=== PATIENT | female | born 1975 | race Caucasian/White ===

== ENCOUNTER 2023-06-13 11:23 | Outpatient (OUT) | payer BC, SELFPAY ==
[2023-06-13 12:31] LABS: Basophils Absolute Auto 0.1 10^3/uL (0.0-0.1); Basophils Percent Auto 0.7 % (0.2-2.0); Eosinophils Absolute Auto 0.3 10^3/uL (0.0-0.7); Eosinophils Percent Auto 3.2 % (0.9-7.0); Hematocrit 41.6 % (36.0-48.0); Hemoglobin 13.5 g/dL (12.0-16.0); Immature Granulocytes Abs Auto 0.04 10^3/uL (0.00-0.03); Immature Granulocytes Pct Auto 0.4 % (0.0-0.5); Lymphocytes Absolute Auto 2.4 10^3/uL (1.2-3.8); Mean Corpuscular HGB Conc 32.5 g/dL (29.9-35.2); Mean Corpuscular Hemoglobin 29.1 pg (26.7-34.0); Mean Corpuscular Volume 89.7 fL (81.0-99.0); Mean Platelet Volume 10.1 fL (9.5-13.5); Monocytes Absolute Auto 0.4 10^3/uL (0.3-0.8); Monocytes Percent Auto 3.9 % (1.7-12.0); Neutrophils Absolute Auto 6.8 10^3/uL (1.4-6.5); Neutrophils Percent Auto 67.8 % (43.0-75.0); Platelet Count 375 10^3/uL (150-450); Red Blood Count 4.64 10^6/uL (4.20-5.40); Red Cell Distribution Width 13.7 % (11.0-15.0)
[2023-06-13 12:45] LABS: Estimated Average Glucose 100 mg/dL; Glycohemoglobin A1C 5.1 % (4.5-6.2)
[2023-06-13 13:00] LABS: Alanine Aminotransferase 22 U/L (14-59); Albumin Globulin Ratio 0.9; Albumin Level 3.7 g/dL (3.4-5.0); Alkaline Phosphatase 85 U/L (46-116); Anion Gap 10.7; Aspartate Amino Transferase 14 U/L (15-37); BUN Creatinine Ratio 14.5; Bilirubin Total 0.3 mg/dL (0.2-1.0); Calcium 8.8 mg/dL (8.5-10.1); Carbon Dioxide 29.1 mmol/L (21.0-32.0); Chloride 104 mmol/L (98-107); Chol HDL Ratio 4.3; Cholesterol 227 mg/dL (<=200); Estimated GFR (African America >60 (>=60); Estimated GFR (Non-African Ame >60 (>=60); Free T3 1.74 pg/mL (2.18-3.98); Globulin 3.9 g/dL; Glucose 84 mg/dL (74-106); HDL Cholesterol 53 mg/dL (40-60); Potassium 3.8 mmol/L (3.5-5.1); Sodium 140 mmol/L (136-145); Thyroid Stimulating Hormone 2.198 uIU/mL (0.358-3.740); Total Protein 7.6 g/dL (6.4-8.2); Triglycerides 157 mg/dL (<=150); VLDL CHOLESTEROL 31.4 mg/dL
== END 2023-06-13 11:24 | disposition home or self-care (01) ==
PROVIDERS: PCP Family Medicine; Visit Provider Family Medicine
DX: Z00.00 Encounter for general adult medical examination without abnormal findings (principal); E78.5 Hyperlipidemia, unspecified; R73.09 Other abnormal glucose; Z12.12 Encounter for screening for malignant neoplasm of rectum; D64.9 Anemia, unspecified
CPT/HCPCS: 36415; 80053; 80061; 83036; 83525; 83540; 84436; 84443; 84481; 85025

== ENCOUNTER 2023-07-28 10:23 | Outpatient (OUT) | payer BC, SELFPAY ==
--- OUTSIDE RECORDS SUMMARY | 2023-07-28 10:27 | XMS_ITS | CCD ---
Author Organization [facility] Care Team Providers Care Building Construction Supervisor Name Role Phone VINCENT ., DR PACHECO Consulting Unavailable HOY ., DR ZAMARRIPA Primary Care Unavailable VINCENT ., DR PACHECO Admitting Unavailable VINCENT ., DR PACHECO Attending Unavailable LEONIE SMITH Consulting Unavailable DESIREE II, ELENO Consulting Unavailable VINCENT ., DR PACHECO Attending Unavailable HOY ., DR ZAMARRIPA Primary Care Unavailable VINCENT ., DR PACHECO Admitting Unavailable [place], DR ALEX Patel Consulting Unavailable HOY ., DR ZAMARRIPA Primary Care Unavailable VINCENT ., DR PACHECO Admitting Unavailable VINCENT ., DR PACHECO Attending Unavailable VINCENT ., DR PACHECO Consulting Unavailable VINCENT ., DR PACHECO Consulting Unavailable HOY ., DR ZAMARRIPA Primary Care Unavailable VINCENT ., DR PACHECO Admitting Unavailable VINCENT ., DR PACHECO Attending Unavailable HOY ., DR ZAMARRIPA Attending Unavailable HOY ., DR ZAMARRIPA Consulting Unavailable HOY ., DR ZAMARRIPA Primary Care Unavailable HOY ., DR ZAMARRIPA Admitting Unavailable VINCENT ., DR PACHECO Attending Unavailable HOY ., DR ZAMARRIPA Primary Care Unavailable VINCENT ., DR PACHECO Consulting Unavailable VINCENT ., DR PACHECO Admitting Unavailable GRACE TIDWELL Consulting Unavailable ERIBERTO VERNON Consulting Unavailable VINCENT ., DR PACHECO Consulting Unavailable HOY ., DR ZAMARRIPA Primary Care Unavailable VINCENT ., DR PACHECO Admitting Unavailable VINCENT ., DR PACHECO Attending Unavailable VINCENT ., DR PACHECO Consulting Unavailable HOY ., DR ZAMARRIPA Primary Care Unavailable VINCENT ., DR PACHECO Admitting Unavailable VINCENT ., DR PACHECO Attending Unavailable RULA MEADE Consulting Unavailable Allergies Allergy Classification Reported Allergen(s) Allergy Type Date of Onset Reaction(s) Facility (1 source) Adhesive agent Drug allergy (disorder) [facility] Repository Problems Active Problems Problem Classification Problem Date Documented Date Episodic/Chronic Abdominal pain (5 sources) Pelvic and perineal pain; Translations: [PELVIC AND PERINEAL PAIN] Onset: 2 Episodic Disorders of lipid metabolism (1 source) Pure hypercholesterolemia, unspecified; Translations: [PURE HYPERCHOLESTEROLEMIA UNSPEC] Onset: 2 Chronic Menstrual disorders (6 sources) Excessive and frequent menstruation with regular cycle; Translations: [Dysmenorrhea, unspecified] Onset: 3 Chronic Nutritional deficiencies (1 source) Vitamin D deficiency, unspecified; Translations: [VITAMIN D DEFICIENCY UNSPECIFIED] Onset: 2 Chronic Other aftercare (1 source) Other fci (current) drug therapy; Translations: [OTH COMMUNITY EDUCATION SPECIALIST CURRENT DRUG THERAPY] Onset: 3 Episodic Other female genital disorders (1 source) Unspecified dyspareunia; Translations: [UNSPECIFIED DYSPAREUNIA] Onset: 3 Chronic Other female genital disorders (1 source) Hypertrophy of uterus; Translations: [HYPERTROPHY OF UTERUS] Onset: 3 Episodic Other nutritional; endocrine; and metabolic disorders (1 source) Obesity, unspecified; Translations: [OBESITY UNSPECIFIED] Onset: 3 Chronic Other nutritional; endocrine; and metabolic disorders (1 source) Body mass index (BMI) 35.0-35.9, adult; Translations: [BODY MASS INDEX BMI 35.0-35.9 ADULT] Onset: 3 Chronic Substance-related disorders (1 source) Nicotine dependence, other tobacco product, uncomplicated; Translations: [NICOTINE DEPEND OTH TOB PROD UNCOMP] Onset: 3 Chronic Past or Other Problems Problem Classification Problem Date Documented Date Episodic/Chronic Contraceptive and procreative management (1 source) Tubal ligation status; Translations: [TUBAL LIGATION STATUS] Onset: 06-29-2022 Episodic Immunizations and screening for infectious disease (1 source) Encounter for screening for human papillomavirus (HPV); Translations: [ENC SCREENING HUMAN PAPILLOMAVIRUS] Onset: 04-06-2022 Episodic Inflammatory diseases of female pelvic organs (1 source) Female pelvic peritoneal adhesions (postinfective); Translations: [FE PELV PERITON ADHES POSTINFECTIVE] Onset: 06-29-2022 Episodic Malaise and fatigue (1 source) Other fatigue; Translations: [OTHER FATIGUE] Onset: 02-24-2022 Episodic Other screening for suspected conditions (not mental disorders or infectious disease) (5 sources) Encounter for screening mammogram for malignant neoplasm of breast; Translations: [Encounter for screening for malignant neoplasm of cervix] Onset: 04-03-2022 Episodic Residual codes; unclassified (1 source) Family history of malignant neoplasm of breast; Translations: [FAMILY HX MALIG NEOPLASM OF BREAST] Onset: 05-06-2022 Episodic Residual codes; unclassified (1 source) Family history of malignant neoplasm of trachea, bronchus and lung; Translations: [FAM HX MALIG NEOPLSM TRACH BRON LNG] Onset: 05-06-2022 Episodic Results Test Name Value Interpretation Reference Range Facility BUNon 08-05-2022 Urea nitrogen [Mass/Vol] 7.0 mg/dL Normal 7.0-18.0 [facility] Comment on above: Performed By: #### P TT, PT #### [facility] [address] [place] [address] Dr. Abdoulaye Kincaid CBC AUTO DIFFon 08-05-2022 BASO # 0.0 103/ul Normal 0.0-0.1 [facility] Comment on above: Performed By: #### C BC #### [facility] [address] [place] [address] Dr. Abdoulaye Kincaid Basophils/100 WBC (Bld) 0.1 % Critically low 0.2-2.0 [facility] Comment on above: Performed By: #### C BC #### [facility] [address] [place] [address] Dr. Abdoulaye Kincaid EO # 0.0 103/ul Normal 0.0-0.7 [facility] Comment on above: Performed By: #### C BC #### [facility] [address] [place] [address] Dr. Abdoulaye Kincaid Eosinophils/100 WBC (Bld) 0.0 % Critically low 0.9-7.0 [facility] Comment on above: Performed By: #### C BC #### [facility] [address] [place] [address] Dr. Abdoulaye Kincaid Erythrocyte distribution width (RBC) [Ratio] 13.8 % Normal 11.0-15.0 [facility] Comment on above: Performed By: #### C BC #### [facility] [address] [place] [address] Dr. Abdoulaye Kincaid Hematocrit (Bld) [Volume fraction] 35.4 % Critically low 36.0-48.0 [facility] Comment on above: Performed By: #### C BC #### [facility] [address] [place] [address] Dr. Abdoulaye Kincaid Hemoglobin (Bld) [Mass/Vol] 11.8 g/dL Critically low 12.0-16.0 [facility] Comment on above: Performed By: #### C BC #### [facility] [address] [place] [address] Dr. Abdoulaye Kincaid IG # 0.05 10e3/ul Critically high 0.00-0.03 [facility] Comment on above: Performed By: #### C BC #### [facility] [address] [place] [address] Dr. Abdoulaye Kincaid IG % 0.4 % Normal 0.0-0.5 [facility] Comment on above: Performed By: #### C BC #### [facility] [address] [place] [address] Dr. Abdoulaye Kincaid LYMPH # 2.1 103/ul Normal 1.2-3.8 [facility] Comment on above: Performed By: #### C BC #### [facility] [address] [place] [address] Dr. Abdoulaye Kincaid Lymphocytes/100 WBC (Bld) 15.1 % Critically low 20.5-60.0 [facility] Comment on above: Performed By: #### C BC #### [facility] [address] [place] [address] Dr. Abdoulaye Kincaid MANUAL DIFF REQ NO Normal [facility] Comment on above: Performed By: #### C BC #### [facility] [address] [place] [address] Dr. Abdoulaye Kincaid MCH (RBC) [Entitic mass] 29.1 pg Normal 26.7-34.0 [facility] Comment on above: Performed By: #### C BC #### [facility] [address] [address] [address] Abdoulaye Kincaid MCHC (RBC) [Mass/Vol] 33.3 g/dL Normal 29.9-35.2 [facility] Comment on above: Performed By: #### C BC #### [facility] [address] [address] [address] Abdoulaye Kincaid MCV (RBC) [Entitic vol] 87.2 fL Normal 81.0-99.0 [facility] Comment on above: Performed By: #### C BC #### [facility] [address] [address] [address] Abdoulaye Kincaid MONO # 0.8 103/ul Normal 0.3-0.8 [facility] Comment on above: Performed By: #### C BC #### [facility] [address] [place] [address] Dr. Abdoulaye Kincaid Monocytes/100 WBC (Bld) 6.2 % Normal 1.7-12.0 [facility] Comment on above: Performed By: #### C BC #### [facility] [address] [address] [address] Abdoulaye Kincaid NEUT # 10.7 103/ul Critically high 1.4-6.5 [facility] Comment on above: Performed By: #### C BC #### [facility] [address] [address] [address] Abdoulaye Kincaid Neutrophils/100 WBC (Bld) 78.2 % Critically high 43.0-75.0 [facility] Comment on above: Performed By: #### C BC #### [facility] [address] [address] [address] Abdoulaye Kincaid Platelet mean volume (Bld) [Entitic vol] 9.4 fL Critically low 9.5-13.5 [facility] Comment on above: Performed By: #### C BC #### [facility] [address] [address] [address] Abdoulaye Kincaid PLT 361 103/ul Normal 150-450 [facility] Comment on above: Performed By: #### C BC #### [facility] [address] [place] [address] Dr. Abdoulaye Kincaid RBC 4.06 106/ul Critically low 4.20-5.40 [facility] Comment on above: Performed By: #### C BC #### [facility] [address] [address] [address] Abdoulaye Kincaid WBC 13.6 103/ul Critically high 4.0-11.0 [facility] Comment on above: Performed By: #### C BC #### [facility] [address] [address] [address] Abdoulaye Kincaid CREATININEon 08-05-2022 Creatinine [Mass/Vol] 0.73 mg/dL Normal 0.55-1.02 [facility] Comment on above: Performed By: #### P TT, PT #### [facility] [address] [place] [address] Dr. Abdoulaye Kincaid EGFR-AF BARBADIAN >60 Normal >=60 [facility] Comment on above: Performed By: #### P TT, PT #### [facility] [address] [place] [address] Dr. Abdoulaye Kincaid EGFR-NON AF BARBADIAN >60 Normal >=60 [facility] Comment on above: Performed By: #### P TT, PT #### [facility] [address] [place] [address] Dr. Abdoulaye Kincaid PREG QUANT HCGon 08-04-2022 HCG QUANT 0 mIU/mL Normal [facility] Comment on above: Performed By: #### P TT, PT #### [facility] [address] [place] [address] Dr. Abdoulaye Kincaid HCG RANGE SEE BELOW Normal [facility] Comment on above: Result Comment: 5-50 0.2-1 WEEK 50-500 1-2 WEEKS 100-5,000 2-3 WEEKS 500-10,000 3-4 WEEKS 1,000-50,000 4-5 WEEKS 10,000-100,000 5-6 WEEKS 15,000-200,000 6-8 WEEKS 10,000-100,000 2-3 MONTHS Performed By: #### P TT, PT #### [facility] [address] [address] [address] Abdoulaye Kincaid CBC AUTO DIFFon 08-01-2022 BASO # 0.1 103/ul Normal 0.0-0.1 [facility] Comment on above: Performed By: #### C BC #### [facility] [address] [place] [address] Dr. Abdoulaye Kincaid Basophils/100 WBC (Bld) 0.6 % Normal 0.2-2.0 [facility] Comment on above: Performed By: #### C BC #### [facility] [address] [place] [address] Dr. Abdoulaye Kincaid EO # 0.3 103/ul Normal 0.0-0.7 [facility] Comment on above: Performed By: #### C BC #### [facility] [address] [place] [address] Dr. Abdoulaye Kincaid Eosinophils/100 WBC (Bld) 2.5 % Normal 0.9-7.0 [facility] Comment on above: Performed By: #### C BC #### [facility] [address] [place] [address] Dr. Abdoulaye Kincaid Erythrocyte distribution width (RBC) [Ratio] 13.9 % Normal 11.0-15.0 [facility] Comment on above: Performed By: #### C BC #### [facility] [address] [place] [address] Dr. Abdoulaye Kincaid Hematocrit (Bld) [Volume fraction] 39.5 % Normal 36.0-48.0 [facility] Comment on above: Performed By: #### C BC #### [facility] [address] [place] [address] Dr. Abdoulaye Kincaid Hemoglobin (Bld) [Mass/Vol] 13.4 g/dL Normal 12.0-16.0 [facility] Comment on above: Performed By: #### C BC #### [facility] [address] [place] [address] Dr. Abdoulaye Kincaid IG # 0.04 10e3/ul Critically high 0.00-0.03 [facility] Comment on above: Performed By: #### C BC #### [facility] [address] [place] [address] Dr. Abdoulaye Kincaid IG % 0.4 % Normal 0.0-0.5 [facility] Comment on above: Performed By: #### C BC #### [facility] [address] [place] [address] Dr. Abdoulaye Kincaid LYMPH # 2.3 103/ul Normal 1.2-3.8 [facility] Comment on above: Performed By: #### C BC #### [facility] [address] [place] [address] Dr. Abdoulaye Kincaid Lymphocytes/100 WBC (Bld) 22.8 % Normal 20.5-60.0 [facility] Comment on above: Performed By: #### C BC #### [facility] [address] [place] [address] Dr. Abdoulaye Kincaid MANUAL DIFF REQ NO Normal [facility] Comment on above: Performed By: #### C BC #### [facility] [address] [place] [address] Dr. Abdoulaye Kincaid MCH (RBC) [Entitic mass] 29.3 pg Normal 26.7-34.0 [facility] Comment on above: Performed By: #### C BC #### [facility] [address] [place] [address] Dr. Abdoulaye Kincaid MCHC (RBC) [Mass/Vol] 33.9 g/dL Normal 29.9-35.2 [facility] Comment on above: Performed By: #### C BC #### [facility] [address] [place] [address] Dr. Abdoulaye Kincaid MCV (RBC) [Entitic vol] 86.4 fL Normal 81.0-99.0 [facility] Comment on above: Performed By: #### C BC #### [facility] [address] [place] [address] Dr. Abdoulaye Kincaid MONO # 0.4 103/ul Normal 0.3-0.8 [facility] Comment on above: Performed By: #### C BC #### [facility] [address] [place] [address] Dr. Abdoulaye Kincaid Monocytes/100 WBC (Bld) 4.4 % Normal 1.7-12.0 [facility] Comment on above: Performed By: #### C BC #### [facility] [address] [address] [address] Abdoulaye Kincaid NEUT # 7.0 103/ul Critically high 1.4-6.5 [facility] Comment on above: Performed By: #### C BC #### [facility] [address] [place] [address] Dr. Abdoulaye Kincaid Neutrophils/100 WBC (Bld) 69.3 % Normal 43.0-75.0 [facility] Comment on above: Performed By: #### C BC #### [facility] [address] [place] [address] Dr. Abdoulaye Kincaid Platelet mean volume (Bld) [Entitic vol] 9.1 fL Critically low 9.5-13.5 [facility] Comment on above: Performed By: #### C BC #### [facility] [address] [place] [address] Dr. Abdoulaye Kincaid PLT 352 103/ul Normal 150-450 [facility] Comment on above: Performed By: #### C BC #### [facility] [address] [place] [address] Dr. Abdoulaye Knicaid RBC 4.57 106/ul Normal 4.20-5.40 [facility] Comment on above: Performed By: #### C BC #### [facility] [address] [place] [address] Dr. Abdoulaye Kincaid WBC 10.1 103/ul Normal 4.0-11.0 [facility] Comment on above: Performed By: #### C BC #### [facility] [address] [place] [address] Dr. Abdoulaye Kincaid LIVER PROFILEon 08-01-2022 Albumin [Mass/Vol] 4.0 g/dL Normal 3.4-5.[address] [facility] Comment on above: Performed By: #### L GEM, BMP #### [facility] [address] [address] [address] Abdoulaye Kincaid Albumin/Globulin [Mass ratio] 1.2 {ratio} Normal [facility] Comment on above: Performed By: #### L IVER, BMP #### [facility] [address] [address] [address] Abdoulaye Kincaid ALP [Catalytic activity/Vol] 89 U/L Normal 46-116 [facility] Comment on above: Performed By: #### L IVER, BMP #### [facility] [address] [address] [address] Abdoulaye Kincaid ALT [Catalytic activity/Vol] 29 U/L Normal 14-59 [facility] Comment on above: Performed By: #### L IVBREN, BMP #### [facility] [address] [address] [address] Abdoulaye Kinacid AST [Catalytic activity/Vol] 20 U/L Normal 15-37 [facility] Comment on above: Performed By: #### L GEM, BMP #### [facility] [address] [place] [address] Dr. Abdoulaye Kincaid BILI, CONJUGATED 0.1 mg/dL Normal 0.0-0.2 [facility] Comment on above: Performed By: #### L IVBREN, BMP #### [facility] [address] [address] [address] Abdoulaye Kincaid Bilirubin [Mass/Vol] 0.5 mg/dL Normal 0.2-1.0 [facility] Comment on above: Performed By: #### L IVBREN, BMP #### [facility] [address] [address] [address] Abdoulaye Kincaid Globulin (S) [Mass/Vol] 3.4 g/dL Normal [facility] Comment on above: Performed By: #### L IVER, BMP #### [facility] [address] [address] [address] Abdoulaye Kincaid Protein [Mass/Vol] 7.4 g/dL Normal 6.4-8.2 [facility] Comment on above: Performed By: #### L IVER, BMP #### [facility] [address] [place] [address] Dr. Abdoulaye Kincaid PROF CHEM 8 (BAS METB)on Anion gap [Moles/Vol] 14.8 mmol/L Normal [facility] Comment on above: Performed By: #### L IVER, BMP #### [facility] [address] [place] [address] Dr. Abdoulaye Kincaid Calcium [Mass/Vol] 9.1 mg/dL Normal 8.5-10.[address] [facility] Comment on above: Performed By: #### L IVER, BMP #### [facility] [address] [place] [address] Dr. Abdoulaye Kincaid Chloride [Moles/Vol] 107 mmol/L Normal 98-107 [facility] Comment on above: Performed By: #### L IVER, BMP #### [facility] [address] [place] [address] Dr. Abdoulaye Kincaid CO2 [Moles/Vol] 27.3 mmol/L Normal 21.0-32.0 [facility] Comment on above: Performed By: #### L IVER, BMP #### [facility] [address] [place] [address] Dr. Abdoulaye Kincaid Creatinine [Mass/Vol] 0.90 mg/dL Normal 0.55-1.02 [facility] Comment on above: Performed By: #### L IVER, BMP #### [facility] [address] [place] [address] Dr. Abdoulaye Kincaid EGFR-AF BARBADIAN >60 Normal >=60 [facility] Comment on above: Performed By: #### L IVER, BMP #### [facility] [address] [place] [address] Dr. Abdoulaye Kincaid EGFR-NON AF BARBADIAN >60 Normal >=60 [facility] Comment on above: Performed By: #### L IVER, BMP #### [facility] [address] [place] [address] Dr. Abdoulaye Kincaid Glucose [Mass/Vol] 109 mg/dL Critically high 74-106 [facility] Comment on above: Performed By: #### L IVER, BMP #### [facility] [address] [place] [address] Dr. Abdoulaye Kincaid Potassium [Moles/Vol] 4.1 mmol/L Normal 3.5-5.1 [facility] Comment on above: Performed By: #### L IVER, BMP #### [facility] [address] [place] [address] Dr. Abdoulaye Kincaid Sodium [Moles/Vol] 145 mmol/L Normal 136-[address] [facility] Comment on above: Performed By: #### L IVER, BMP #### [facility] [address] [place] [address] Dr. Abdoulaye Kincaid Urea nitrogen [Mass/Vol] 14.0 mg/dL Normal 7.0-18.0 [facility] Comment on above: Performed By: #### L IVER, BMP #### [facility] [address] [place] [address] Dr. Abdoulaye Kincaid Urea nitrogen/Creatinine [Mass ratio] 15.6 mg/mg Normal [facility] Comment on above: Performed By: #### L IVER, BMP #### [facility] [address] [place] [address] Dr. Abdoulaye Kincaid PROTIMEon 08-01-2022 INR Coag (PPP) [Relative time] 0.95 {INR} Normal [facility] Comment on above: Performed By: #### P TT, PT #### [facility] [address] [place] [address] Dr. Abdoulaye Kincaid INR GUIDELINES SEE BELOW Normal [facility] Comment on above: Result Comment: NIMA RED INR: 2.0 - 3.0 CONDITIONS NOT LISTED BELOW 2.5 - 3.5 FOR PROSTHETIC HEART VALVE REPLACEMENT 2.5 - 3.5 RECURRENT THROMBOSIS Performed By: #### P TT, PT #### [facility] [address] [place] [address] Dr. Abdoulaye Kincaid PT Coag (PPP) [Time] 10.1 s Normal 9.0-11.6 [facility] Comment on above: Performed By: #### P TT, PT #### [facility] [address] [place] [address] Dr. Abdoulaye Kincaid PTTon 08-01-2022 aPTT Coag (Bld) [Time] 27.4 s Normal 22.3-36.2 [facility] Comment on above: Performed By: #### P TT, PT #### [facility] [address] [place] [address] Dr. Abdoulaye Kincaid TYPE AND SCREENon 08-01-2022 TYPE AND SCREEN Negative Normal [facility] Comment on above: Performed By: #### P TT, PT #### [facility] [address] [place] [address] Dr. Abdoulaye Kincaid CBC AUTO DIFFon 06-23-2022 BASO # 0.1 103/ul Normal 0.0-0.1 [facility] Comment on above: Performed By: #### A 1C #### [facility] [address] [place] [address] Dr. Abdoulaye Kincaid Basophils/100 WBC (Bld) 0.4 % Normal 0.2-2.0 [facility] Comment on above: Performed By: #### A 1C #### [facility] [address] [place] [address] Dr. Abdoulaye Kincaid EO # 0.2 103/ul Normal 0.0-0.7 [facility] Comment on above: Performed By: #### A 1C #### [facility] [address] [place] [address] Dr. Abdoulaye Kincaid Eosinophils/100 WBC (Bld) 1.7 % Normal 0.9-7.0 [facility] Comment on above: Performed By: #### A 1C #### [facility] [address] [place] [address] Dr. Abdoulaye Kincaid Erythrocyte distribution width (RBC) [Ratio] 14.4 % Normal 11.0-15.0 [facility] Comment on above: Performed By: #### A 1C #### [facility] [address] [place] [address] Dr. Abdoulaye Kincaid Hematocrit (Bld) [Volume fraction] 38.5 % Normal 36.0-48.0 [facility] Comment on above: Performed By: #### A 1C #### [facility] [address] [address] [address] Abdoulaye Kincaid Hemoglobin (Bld) [Mass/Vol] 12.9 g/dL Normal 12.0-16.0 [facility] Comment on above: Performed By: #### A 1C #### [facility] [address] [address] [address] Abdoulaye Kincaid IG # 0.04 10e3/ul Critically high 0.00-0.03 [facility] Comment on above: Performed By: #### A 1C #### [facility] [address] [address] [address] Abdoulaye Kincaid IG % 0.3 % Normal 0.0-0.5 [facility] Comment on above: Performed By: #### A 1C #### [facility] [address] [address] [address] Abdoulaye Kincaid LYMPH # 2.5 103/ul Normal 1.2-3.8 [facility] Comment on above: Performed By: #### A 1C #### [facility] [address] [place] [address] Dr. Abdoulaye Kincaid Lymphocytes/100 WBC (Bld) 20.6 % Normal 20.5-60.0 [facility] Comment on above: Performed By: #### A 1C #### [facility] [address] [place] [address] Dr. Abdoulaye Kincaid MANUAL DIFF REQ NO Normal [facility] Comment on above: Performed By: #### A 1C #### [facility] [address] [address] [address] Abdoulaye Kincaid MCH (RBC) [Entitic mass] 29.0 pg Normal 26.7-34.0 [facility] Comment on above: Performed By: #### A 1C #### [facility] [address] [place] [address] Dr. Abdoulaye Kincaid MCHC (RBC) [Mass/Vol] 33.5 g/dL Normal 29.9-35.2 [facility] Comment on above: Performed By: #### A 1C #### [facility] [address] [address] [address] Abdoulaye Kincaid MCV (RBC) [Entitic vol] 86.5 fL Normal 81.0-99.0 [facility] Comment on above: Performed By: #### A 1C #### [facility] [address] [address] [address] Abdoulaye Kincaid MONO # 0.7 103/ul Normal 0.3-0.8 [facility] Comment on above: Performed By: #### A 1C #### [facility] [address] [address] [address] Abdoulaye Kincaid Monocytes/100 WBC (Bld) 5.5 % Normal 1.7-12.0 [facility] Comment on above: Performed By: #### A 1C #### [facility] [address] [place] [address] Dr. Abdoulaye Kincaid NEUT # 8.6 103/ul Critically high 1.4-6.5 [facility] Comment on above: Performed By: #### A 1C #### [facility] [address] [place] [address] Dr. Abdoulaye Kincaid Neutrophils/100 WBC (Bld) 71.5 % Normal 43.0-75.0 [facility] Comment on above: Performed By: #### A 1C #### [facility] [address] [place] [address] Dr. Abdoulaye Kincaid Platelet mean volume (Bld) [Entitic vol] 9.3 fL Critically low 9.5-13.5 [facility] Comment on above: Performed By: #### A 1C #### [facility] [address] [place] [address] Dr. Abdoulaye Kincaid PLT 372 103/ul Normal 150-450 [facility] Comment on above: Performed By: #### A 1C #### [facility] [address] [address] [address] Abdoulaye Kincaid RBC 4.45 106/ul Normal 4.20-5.40 [facility] Comment on above: Performed By: #### A 1C #### [facility] [address] [place] [address] Dr. Abdoulaye Kincaid WBC 12.0 103/ul Critically high 4.0-11.0 [facility] Comment on above: Performed By: #### A 1C #### [facility] [address] [place] [address] Dr. Abdoulaye Kincaid PREG QUANT HCGon 06-23-2022 HCG QUANT 1 mIU/mL Normal [facility] Comment on above: Performed By: #### P REGQNT #### [facility] [address] [place] [address] Dr. Abdoulaye Kincaid HCG RANGE SEE BELOW Normal [facility] Comment on above: Result Comment: 5-50 0.2-1 WEEK 50-500 1-2 WEEKS 100-5,000 2-3 WEEKS 500-10,000 3-4 WEEKS 1,000-50,000 4-5 WEEKS 10,000-100,000 5-6 WEEKS 15,000-200,000 6-8 WEEKS 10,000-100,000 2-3 MONTHS Performed By: #### P REGQNT #### [facility] [address] [place] [address] Dr. Abdoulaye Kincaid XR CHEST 2 Von 06-14-2022 XR CHEST 2 V EXAM: CHEST 2 VIEWS HISTORY: Electronic cigarette user TECHNIQUE: PA and lateral views chest. COMPARISON: None. FINDINGS: The lungs are clear. There is no focal lung consolidation, pleural effusion or pneumothorax. Pulmonary vasculature is within normal limits. The cardiomediastinal silhouette is normal. IMPRESSION: 1. Clear lungs without acute cardiopulmonary disease. Electronically authenticated by: RULA MEADE Date: 2022-06-14 12:14 Normal [facility] CBC AUTO DIFFon 05-04-2022 BASO # 0.1 103/ul Normal 0.0-0.1 [facility] Comment on above: Performed By: #### P TT, PT #### [facility] [address] [place] [address] Dr. Abdoulaye Kincaid Basophils/100 WBC (Bld) 0.5 % Normal 0.2-2.0 [facility] Comment on above: Performed By: #### P TT, PT #### [facility] [address] [place] [address] Dr. Abdoulaye Kincaid EO # 0.2 103/ul Normal 0.0-0.7 [facility] Comment on above: Performed By: #### P TT, PT #### [facility] [address] [place] [address] Dr. Abdoulaye Kincaid Eosinophils/100 WBC (Bld) 1.8 % Normal 0.9-7.0 [facility] Comment on above: Performed By: #### P TT, PT #### [facility] [address] [place] [address] Dr. Abdoulaye Kincaid Erythrocyte distribution width (RBC) [Ratio] 14.4 % Normal 11.0-15.0 [facility] Comment on above: Performed By: #### P TT, PT #### [facility] [address] [place] [address] Dr. Abdoulaye Kincaid Hematocrit (Bld) [Volume fraction] 40.7 % Normal 36.0-48.0 [facility] Comment on above: Performed By: #### P TT, PT #### [facility] [address] [place] [address] Dr. Abdoulaye Kincaid Hemoglobin (Bld) [Mass/Vol] 13.4 g/dL Normal 12.0-16.0 [facility] Comment on above: Performed By: #### P TT, PT #### [facility] [address] [place] [address] Dr. Abdoulaye Kincaid IG # 0.06 10e3/ul Critically high 0.00-0.03 [facility] Comment on above: Performed By: #### P TT, PT #### [facility] [address] [place] [address] Dr. Abdoulaye Kincaid IG % 0.5 % Normal 0.0-0.5 [facility] Comment on above: Performed By: #### P TT, PT #### [facility] [address] [place] [address] Dr. Abdoulaye Kincaid LYMPH # 2.3 103/ul Normal 1.2-3.8 [facility] Comment on above: Performed By: #### P TT, PT #### [facility] [address] [place] [address] Dr. Abdoulaye Kincaid Lymphocytes/100 WBC (Bld) 20.7 % Normal 20.5-60.0 [facility] Comment on above: Performed By: #### P TT, PT #### [facility] [address] [place] [address] Dr. Abdoulaye Kincaid MANUAL DIFF REQ NO Normal [facility] Comment on above: Performed By: #### P TT, PT #### [facility] [address] [place] [address] Dr. Abdoulaye Kincaid MCH (RBC) [Entitic mass] 28.3 pg Normal 26.7-34.0 [facility] Comment on above: Performed By: #### P TT, PT #### [facility] [address] [place] [address] Dr. Abdoulaye Kincaid MCHC (RBC) [Mass/Vol] 32.9 g/dL Normal 29.9-35.2 [facility] Comment on above: Performed By: #### P TT, PT #### [facility] [address] [place] [address] Dr. Abdoulaye Kincaid MCV (RBC) [Entitic vol] 86.0 fL Normal 81.0-99.0 [facility] Comment on above: Performed By: #### P TT, PT #### [facility] [address] [place] [address] Dr. Abdoulaye Kincaid MONO # 0.5 103/ul Normal 0.3-0.8 [facility] Comment on above: Performed By: #### P TT, PT #### [facility] [address] [place] [address] Dr. Abdoulaye Kincaid Monocytes/100 WBC (Bld) 4.8 % Normal 1.7-12.0 [facility] Comment on above: Performed By: #### P TT, PT #### [facility] [address] [place] [address] Dr. Abdoulaye Kincaid NEUT # 8.0 103/ul Critically high 1.4-6.5 [facility] Comment on above: Performed By: #### P TT, PT #### [facility] [address] [address] [address] Abdoulaye Kincaid Neutrophils/100 WBC (Bld) 71.7 % Normal 43.0-75.0 [facility] Comment on above: Performed By: #### P TT, PT #### [facility] [address] [address] [address] Abdoulaye Kincaid Platelet mean volume (Bld) [Entitic vol] 9.2 fL Critically low 9.5-13.5 [facility] Comment on above: Performed By: #### P TT, PT #### [facility] [address] [address] [address] Abdoulaye Kincaid PLT 392 103/ul Normal 150-450 [facility] Comment on above: Performed By: #### P TT, PT #### [facility] [address] [address] [address] Abdoulaye Kincaid RBC 4.73 106/ul Normal 4.20-5.40 [facility] Comment on above: Performed By: #### P TT, PT #### [facility] [address] [address] [address] Abdoulaye Kincaid WBC 11.2 103/ul Critically high 4.0-11.0 [facility] Comment on above: Performed By: #### P TT, PT #### [facility] [address] [address] [address] Abdoulaye Kincaid FREE T4on 05-04-2022 Free T4 [Mass/Vol] 1.17 ng/dL Normal 0.76-1.[address] [facility] Comment on above: Performed By: #### C BC #### [facility] [address] [address] [address] Abdoulaye Kincaid MG MAMM SCREEN 3D BRANDY CADon 05-04-2022 MG MAMM SCREEN 3D BRANDY CAD Patient: PALMA SHERMAN Exam Date: 05/04/2022 : 1975 Gender:F Ordering : DR JUNIOR BLACKMAN . Admission #: [id number] Family : Order #: [id number] CLICK HERE TO VIEW EXAM RADIOLOGY REPORT PROCEDURE: MAMMOGRAM SCREENING 3D BILATERAL CAD COMPARISON: MG MAMM SCREEN BRANDY W CAD, 07/30/2018. MG MAMM SCREEN 3D BRANDY CAD, 05/03/2021. INDICATIONS: Screening mammography Calculator Name NCI Breast Cancer Risk Assessment Tool 5 Year Breast Cancer Risk 0.70% Lifetime Breast Cancer Risk 8.60% Personal Breast Cancer No Personal Ovarian Cancer No Treatments None Family Cancers Grandmother-paternal with breast cancer at age 38; Grandmother-maternal with lung cancer at age 62; Grandfather-maternal with lung cancer at age 68. LOCATION: [facility] BREAST COMPOSITION: Scattered areas fibroglandular density. FINDINGS: DIAGNOSTIC CATEGORY 1--NEGATIVE. NO CHANGE FROM COMPARISON ASSESSMENT. Scattered benign-appearing calcifications are present. Scattered benign-appearing lymph nodes are present. RIGHT BREAST: No significant suspicious finding. LEFT BREAST: No significant suspicious finding. RECOMMENDATIONS: ROUTINE MAMMOGRAM AND CLINICAL EVALUATION IN 12 MONTHS. PLEASE NOTE: A NORMAL MAMMOGRAM DOES NOT EXCLUDE THE POSSIBILITY OF BREAST CANCER. A CLINICALLY SUSPICIOUS PALPABLE LUMP SHOULD BE BIOPSIED. Dictated by: Alex Fragoso MD on 05/04/2022 at 11:49 Approved by: Alex Fragoso MD on 05/04/2022 at 11:52 Normal [facility] PREG QUANT HCGon 05-04-2022 HCG QUANT <1 Normal [facility] Comment on above: Performed By: #### P TT, PT #### [facility] [address] [place] [address] Dr. Abdoulaye Kincaid HCG RANGE SEE BELOW Normal [facility] Comment on above: Result Comment: 5-50 0.2-1 WEEK 50-500 1-2 WEEKS 100-5,000 2-3 WEEKS 500-10,000 3-4 WEEKS 1,000-50,000 4-5 WEEKS 10,000-100,000 5-6 WEEKS 15,000-200,000 6-8 WEEKS 10,000-100,000 2-3 MONTHS Performed By: #### P TT, PT #### [facility] [address] [place] [address] Dr. Abdoulaye Kincaid PROTIMEon 05-04-2022 INR Coag (PPP) [Relative time] 1.01 {INR} Normal [facility] Comment on above: Performed By: #### A 1C #### [facility] [address] [place] [address] Dr. Abdoulaye Kincaid INR GUIDELINES SEE BELOW Normal [facility] Comment on above: Result Comment: NIMA RED INR: 2.0 - 3.0 CONDITIONS NOT LISTED BELOW 2.5 - 3.5 FOR PROSTHETIC HEART VALVE REPLACEMENT 2.5 - 3.5 RECURRENT THROMBOSIS Performed By: #### A 1C #### [facility] [address] [place] [address] Dr. Abdoulaye Kincaid PT Coag (PPP) [Time] 10.9 s Normal 9.0-11.6 [facility] Comment on above: Performed By: #### A 1C #### [facility] [address] [place] [address] Dr. Abdoulaye Kincaid PTTon 05-04-2022 aPTT Coag (Bld) [Time] 30.2 s Normal 22.3-36.2 [facility] Comment on above: Performed By: #### A 1C #### [facility] [address] [place] [address] Dr. Abdoulaye Kincaid TSHon 05-04-2022 TSH 1.886 uIU/mL Normal 0.358-3.740 [facility] Comment on above: Performed By: #### T SH, PREGQNT #### [facility] [address] [place] [address] Dr. Abdoulaye Kincaid US PELVIS AND TRANSVAGon US PELVIS AND TRANSVAG EXAMINATION: US PELVIS AND TRANSVAG HISTORY: Pelvic and perineal pain COMPARISON: No relevant comparison available. FINDINGS: Transabdominal and transvaginal images The uterus is normal in size, contour and myometrial echotexture measuring 9.3 x 5.1 x 4.3 cm. Focal fundal exophytic mass measuring 2.0 x 1.8 x 1.4 cm. The endometrial stripe measures 12.3 mm and is heterogeneous. Anechoic echogenicity identified either adjacent or within the endometrium measuring 1.9 x 0.8 x 0.9 cm likely fluid. The right ovary was seen on transabdominal imaging measuring 1.9 x 2.2 x 1.7 cm, grossly normal The left ovary is normal in appearance measuring 1.5 x 2.2 x 2.3 cm. No free fluid IMPRESSION: 2 cm fundal myometrial mass, a fibroid is favored Heterogeneous endometrium containing fluid, nonspecific Electronically authenticated by: ALEX FRAGOSO Date: 2022-05-04 16:34 Normal [facility] PAP ACOG PANEL 2: 30 to 65on 04-11-2022 . . Normal [facility] Comment on above: Result Comment: Perf ormed at: WB Performed By: #### C BC #### [facility] [address] [address] [address] Abdoulaye Kincaid Age Gdln ACOG Testing 30-65 Normal [facility] Comment on above: Performed By: #### C BC #### [facility] [address] [address] [address] Abdoulaye Kincaid DIAGNOSIS: Comment Normal [facility] Comment on above: Result Comment: NEGA TIVE FOR INTRAEPITHELIAL LESION OR MALIGNANCY. Performed at: WB Performed By: #### C BC #### [facility] [address] [address] [address] Abdoulaye Kincaid HPV Aptima Negative Normal Negative [facility] Comment on above: Result Comment: This nucleic acid amplification test detects fourteen high-risk HPV types (16,18,31,33,35,39,45,51,52,56,58,59,66,68) without differentiation. Performed at: =G Performed By: #### C BC #### [facility] [address] [address] [address] Abdoulaye Kincaid HPV Genotype Reflex Comment Normal [facility] Comment on above: Result Comment: Crit eria not met, HPV Genotype not performed. Performed at: WB Performed By: #### C BC #### [facility] [address] [id number] Abdoulaye Kincaid Methodology: Comment Normal [facility] Comment on above: Result Comment: This liquid based ThinPrep(R) pap test was screened with the use of an image guided system. Performed at: WB Performed By: #### C BC #### [facility] [address] [address] [address] Abdoulaye Knicaid Note: Comment Normal [facility] Comment on above: Result Comment: The Pap smear is a screening test designed to aid in the detection of premalignant and malignant conditions of the uterine cervix. It is not a diagnostic procedure and should not be used as the sole means of detecting cervical cancer. Both false-positive and false-negative reports do occur. . Performed at: WB Performed By: #### C BC #### [facility] [address] [place] [address] Dr. Abdoulaye Kincaid Performed by: Comment Normal [facility] Comment on above: Result Comment: Ashtyn Crenshaw, Handle Rounder Operator Performed at: WB Performed By: #### C BC #### [facility] [address] [place] [address] Dr. Abdoulaye Kincaid Specimen adequacy: Comment Normal [facility] Comment on above: Result Comment: Sati sfactory for evaluation. Endocervical and/or squamous metaplastic cells (endocervical component) are present. Performed at: WB Performed By: #### C BC #### [facility] [address] [place] [address] Dr. Abdoulaye Kincaid CBC AUTO DIFFon 02-21-2022 BASO # 0.1 103/ul Normal 0.0-0.1 [facility] Comment on above: Performed By: #### C BC #### [facility] [address] [place] [address] Dr. Abdoulaye Kincaid Basophils/100 WBC (Bld) 0.6 % Normal 0.2-2.0 [facility] Comment on above: Performed By: #### C BC #### [facility] [address] [place] [address] Dr. Abdoulaye Kincaid EO # 0.2 103/ul Normal 0.0-0.7 [facility] Comment on above: Performed By: #### C BC #### [facility] [address] [place] [address] Dr. Abdoulaye Kincaid Eosinophils/100 WBC (Bld) 2.3 % Normal 0.9-7.0 [facility] Comment on above: Performed By: #### C BC #### [facility] [address] [place] [address] Dr. Abdoulaye Kincaid Erythrocyte distribution width (RBC) [Ratio] 14.1 % Normal 11.0-15.0 [facility] Comment on above: Performed By: #### C BC #### [facility] [address] [place] [address] Dr. Abdoulaye Kincaid Hematocrit (Bld) [Volume fraction] 41.6 % Normal 36.0-48.0 [facility] Comment on above: Performed By: #### C BC #### [facility] [address] [place] [address] Dr. Abdoulaye Kincaid Hemoglobin (Bld) [Mass/Vol] 13.6 g/dL Normal 12.0-16.0 [facility] Comment on above: Performed By: #### C BC #### [facility] [address] [place] [address] Dr. Abdoulaye Kincaid IG # 0.02 10e3/ul Normal 0.00-0.03 [facility] Comment on above: Performed By: #### C BC #### [facility] [address] [place] [address] Dr. Abdoulaye Kincaid IG % 0.2 % Normal 0.0-0.5 [facility] Comment on above: Performed By: #### C BC #### [facility] [address] [place] [address] Dr. Abdoulaye Kincaid LYMPH # 2.3 103/ul Normal 1.2-3.8 [facility] Comment on above: Performed By: #### C BC #### [facility] [address] [place] [address] Dr. Abdoulaye Kincaid Lymphocytes/100 WBC (Bld) 26.9 % Normal 20.5-60.0 [facility] Comment on above: Performed By: #### C BC #### [facility] [address] [place] [address] Dr. Abdoulaye Kincaid MANUAL DIFF REQ NO Normal [facility] Comment on above: Performed By: #### C BC #### [facility] [address] [place] [address] Dr. Abdoulaye Kincaid MCH (RBC) [Entitic mass] 28.6 pg Normal 26.7-34.0 [facility] Comment on above: Performed By: #### C BC #### [facility] [address] [place] [address] Dr. Abdoulaye Kincaid MCHC (RBC) [Mass/Vol] 32.7 g/dL Normal 29.9-35.2 [facility] Comment on above: Performed By: #### C BC #### [facility] [address] [place] [address] Dr. Abdoulaye Kincaid MCV (RBC) [Entitic vol] 87.4 fL Normal 81.0-99.0 [facility] Comment on above: Performed By: #### C BC #### [facility] [address] [place] [address] Dr. Abdoulaye Kincaid MONO # 0.5 103/ul Normal 0.3-0.8 [facility] Comment on above: Performed By: #### C BC #### [facility] [address] [place] [address] Dr. Abdoulaye Kincaid Monocytes/100 WBC (Bld) 5.2 % Normal 1.7-12.0 [facility] Comment on above: Performed By: #### C BC #### [facility] [address] [place] [address] Dr. Abdoulaye Kincaid NEUT # 5.6 103/ul Normal 1.4-6.5 [facility] Comment on above: Performed By: #### C BC #### [facility] [address] [place] [address] Dr. Abdoulaye Kincaid Neutrophils/100 WBC (Bld) 64.8 % Normal 43.0-75.0 [facility] Comment on above: Performed By: #### C BC #### [facility] [address] [place] [address] Dr. Abdoulaye Kincaid Platelet mean volume (Bld) [Entitic vol] 9.3 fL Critically low 9.5-13.5 [facility] Comment on above: Performed By: #### C BC #### [facility] [address] [place] [address] Dr. Abdoulaye Kincaid PLT 371 103/ul Normal 150-450 [facility] Comment on above: Performed By: #### C BC #### [facility] [address] [place] [address] Dr. Abdoulaye Kincaid RBC 4.76 106/ul Normal 4.20-5.40 [facility] Comment on above: Performed By: #### C BC #### [facility] [address] [place] [address] Dr. Abdoulaye Kincaid WBC 8.6 103/ul Normal 4.0-11.0 [facility] Comment on above: Performed By: #### C BC #### [facility] [address] [place] [address] Dr. Abdoulaye Kincaid FREE T3on 02-21-2022 FREE T3 2.87 pg/mlL Normal 2.18-3.98 [facility] Comment on above: Performed By: #### A 1C #### [facility] [facility] [address] [place] [address] Dr. Abdoulaye Kincaid GLYCOHEMOGLOBIN A1Con 2021 ADA RECOMMENDATION SEE BELOW Normal [facility] Comment on above: Result Comment: ADA RECOMMENDED LIMIT 4.0 - 6.0 ADA THERAPEUTIC TARGET < 7.0 ACTION SUGGESTED > 7.0 Performed By: #### A 1C #### [facility] [address] [place] [address] Dr. Abdoulaye Kincaid Glucose [Mass/Vol] 111 mg/dL Normal [facility] Comment on above: Performed By: #### A 1C #### [facility] [address] [place] [address] Dr. Abdoulaye Kincaid HbA1c (Bld) [Mass fraction] 5.5 % Normal 4.5-6.2 [facility] Comment on above: Performed By: #### A 1C #### [facility] [address] [place] [address] Dr. Abdoulaye Kincaid LIPID PROFILEon 02-21-2022 CHOL-HDL RATIO NORM SEE BELOW Normal [facility] Comment on above: Result Comment: 3.3 - 4.4 LOW RISK 4.4 - 7.1 AVERAGE RISK 7.1 - 11.0 MODERATE RISK >11.0 HIGH RISK Performed By: #### A 1C #### [facility] [address] [address] [address] Abdoulaye Kincaid Cholesterol [Mass/Vol] 226 mg/dL Critically high <=200 [facility] Comment on above: Performed By: #### A 1C #### [facility] [address] [address] [address] Abdoulaye Kincaid Cholesterol in HDL [Mass/Vol] 53 mg/dL Normal 40-60 [facility] Comment on above: Performed By: #### A 1C #### [facility] [address] [address] [address] Abdoulaye Kincaid Cholesterol in LDL [Mass/Vol] 141.6 mg/dL Normal [facility] Comment on above: Performed By: #### A 1C #### [facility] [address] [address] [address] Abdoulaye Kincaid Cholesterol.total/Cho lesterol in HDL [Mass ratio] 4.3 {ratio} Normal [facility] Comment on above: Performed By: #### A 1C #### [facility] [address] [address] [address] Abdoulaye Kincaid HDL NORMAL > or = 60 mg/dl - LO W CARDIOVASCULAR RISK <40 mg/dl - HIGH CARDIOVASCULAR RISK Normal [facility] Comment on above: Performed By: #### A 1C #### [facility] [address] [address] [address] Abdoulaye Kincaid LDL CALC NORMAL SEE BELOW Normal [facility] Comment on above: Result Comment: <100 mg/dl OPTIMAL 100 - 129 mg/dl NEAR OR ABOVE OPTIMAL 130 - 159 mg/dl BORDERLINE HIGH 160 - 189 mg/dl HIGH >190 mg/dl VERY HIGH Performed By: #### A 1C #### [facility] [address] [address] [address] Abdoulaye Kincaid Triglyceride [Mass/Vol] 157 mg/dL Critically high <=150 [facility] Comment on above: Performed By: #### A 1C #### [facility] [address] [address] [address] Abdoulaye Kincaid VLDL CALC 31.4 mg/dL Normal [facility] Comment on above: Performed By: #### A 1C #### [facility] [address] [place] [address] Dr. Abdoulaye Kincaid PROF 14(COMP METB)on 022 Albumin [Mass/Vol] 4.1 g/dL Normal 3.4-5.[address] [facility] Comment on above: Performed By: #### A 1C #### [facility] [address] [place] [address] Dr. Abdoulaye Kincaid Albumin/Globulin [Mass ratio] 1.1 {ratio} Normal [facility] Comment on above: Performed By: #### A 1C #### [facility] [address] [place] [address] Dr. Abdoulaye Kincaid ALP [Catalytic activity/Vol] 83 U/L Normal 46-116 [facility] Comment on above: Performed By: #### A 1C #### [facility] [address] [place] [address] Dr. Abdoulaye Kincaid ALT [Catalytic activity/Vol] 30 U/L Normal 14-59 [facility] Comment on above: Performed By: #### A 1C #### [facility] [address] [place] [address] Dr. Abdoulaye Kincaid Anion gap [Moles/Vol] 11.0 mmol/L Normal [facility] Comment on above: Performed By: #### A 1C #### [facility] [address] [place] [address] Dr. Abdoulaye Kincaid AST [Catalytic activity/Vol] 16 U/L Normal 15-37 [facility] Comment on above: Performed By: #### A 1C #### [facility] [address] [place] [address] Dr. Abdoulaye Kincaid Bilirubin [Mass/Vol] 0.6 mg/dL Normal 0.2-1.0 [facility] Comment on above: Performed By: #### A 1C #### [facility] [address] [place] [address] Dr. Abdoulaye Kincaid Calcium [Mass/Vol] 8.9 mg/dL Normal 8.5-10.[address] [facility] Comment on above: Performed By: #### A 1C #### [facility] [address] [address] [address] Abdoulaye Kincaid Chloride [Moles/Vol] 106 mmol/L Normal 98-107 [facility] Comment on above: Performed By: #### A 1C #### [facility] [address] [address] [address] Abdoulaye Kincaid CO2 [Moles/Vol] 28.0 mmol/L Normal 21.0-32.0 [facility] Comment on above: Performed By: #### A 1C #### [facility] [address] [address] [address] Abdoulaye Kincaid Creatinine [Mass/Vol] 0.72 mg/dL Normal 0.55-1.02 [facility] Comment on above: Performed By: #### A 1C #### [facility] [address] [place] [address] Dr. Abdoulaye Kincaid EGFR-AF BARBADIAN >60 Normal >=60 [facility] Comment on above: Performed By: #### A 1C #### [facility] [address] [place] [address] Dr. Abdoulaye Kincaid EGFR-NON AF BARBADIAN >60 Normal >=60 [facility] Comment on above: Performed By: #### A 1C #### [facility] [address] [place] [address] Dr. Abdoulaye Kincaid Globulin (S) [Mass/Vol] 3.7 g/dL Normal [facility] Comment on above: Performed By: #### A 1C #### [facility] [address] [place] [address] Dr. Abdoulaey Kincaid Glucose [Mass/Vol] 97 mg/dL Normal 74-106 [facility] Comment on above: Performed By: #### A 1C #### [facility] [address] [place] [address] Dr. Abdoulaye Kincaid Potassium [Moles/Vol] 4.0 mmol/L Normal 3.5-5.1 [facility] Comment on above: Performed By: #### A 1C #### [facility] [address] [address] [address] Abdoulaye Kincaid Protein [Mass/Vol] 7.8 g/dL Normal 6.4-8.2 [facility] Comment on above: Performed By: #### A 1C #### [facility] [address] [address] [address] Abdoulaye Kincaid Sodium [Moles/Vol] 141 mmol/L Normal 136-145 [facility] Comment on above: Performed By: #### A 1C #### [facility] [address] [place] [address] Dr. Abdoulaye Kincaid Urea nitrogen [Mass/Vol] 10.0 mg/dL Normal 7.0-18.0 [facility] Comment on above: Performed By: #### A 1C #### [facility] [address] [place] [address] Dr. Abdoulaye Kincaid Urea nitrogen/Creatinine [Mass ratio] 13.9 mg/mg Normal [facility] Comment on above: Performed By: #### A 1C #### [facility] [address] [place] [address] Dr. Abdoulaye Kincaid T4on 02-21-2022 T4 [Mass/Vol] 10.90 ug/dL Normal 4.80-13.90 [facility] Comment on above: Performed By: #### A 1C #### [facility] [address] [place] [address] Dr. Abdoulaye Kincaid TSHon 02-21-2022 TSH 0.662 uIU/mL Normal 0.358-3.740 [facility] Comment on above: Performed By: #### A 1C #### [facility] [address] [place] [address] Dr. Abdoulaye Kincaid VITAMIN D 25 OHon 02-21-2022 VIT D 25-OH 19.8 ng/mL Normal [facility] Comment on above: Performed By: #### A 1C #### [facility] [address] [place] [address] Dr. Abdoulaye Kincaid VIT D RANGES SEE BELOW Normal [facility] Comment on above: Result Comment: <20 ng/mL Vit D deficient 20 - <30 ng/mL Vit D insufficient 30 - 100 ng/mL Vit D sufficient >100 ng/mL Potential Toxicity Performed By: #### A 1C #### [facility] [address] [id number] [address] Abdoulaye Kincaid Encounters Encounter Date Encounter Type Care Provider Facility Start: 08-04-2022 Encounter for prepro cedural laboratory examination DR JUNIOR BLACKMAN . [facility] Start: 08-04-2022 End: 08-05-[address] JUNIOR BLACKMAN . Facility[facility] Start: 08-01-2022 End: 08-02-[address] JUNIOR BLACKMAN . Facility[facility] Start: 08-01-2022 End: 08-02-2022 Encounter for preprocedural laboratory examination DR JUNIOR BLACKMAN . Facility[facility] Start: 06-23-2022 End: 06-23-[address] JUNIOR BLACKMAN . Facility[facility] Start: 06-16-2022 Encounter for prepro cedural cardiovascular examination DR JUNIOR BLACKMAN . [facility] Start: 06-14-2022 End: 06-15-[address] JUNIOR BLACKMAN . Facility[facility] Start: 06-14-2022 End: 06-15-2022 Encounter for preprocedural cardiovascular examination DR JUNIOR BLACKMAN . Facility:[facility] Start: 05-04-2022 End: 05-05-[address] ALEX FRAGOSO Facility:[facility] Start: 04-03-2022 End: 04-03-[address] JUNIOR BLACKMAN . Facility[facility] Start: 02-24-2022 Encounter for genera l adult medical examination without abnormal findings DR MARILOU CERVANTES . [facility] Start: 02-21-2022 End: 02-22-[address] MARILOU CERVANTES . Facility[facility] Start: 02-21-2022 End: 02-22-2022 Encounter for general adult medical examination without abnormal findings DR MARILOU CERVANTES . Facility:[facility] Payers Date Payer Category Payer Unknown [id number] 2.16.84 [id number] 1975 Unknown [id number] 2.16.84 [id number] 1976 Unknown [id number] 2.16.84 [id number] 1976 Unknown [id number] 2.16.84 [id number] 1976 Unknown [id number] 2.16.84 [id number] 1976 Unknown [id number] 2.16.84 [id number] 1976 Unknown [id number] 2.16.84 [id number] 1976 Unknown [id number] 2.16.84 [id number] 1959 Unknown [id number] Clinical Note 08-04-2022 Note Date & Type Note Facility 08-04-2022 Note OPERATIVE NOTE OPERATION DATE: 08/04/2022 PROCEDURE: Robotic assisted laparoscopic hysterectomy with cystoscopy. PREOPERATIVE DIAGNOSIS: Menorrhagia, dysmenorrhea, pelvis pain, dyspareunia. POSTOPERATIVE DIAGNOSIS: Menorrhagia, dysmenorrhea, pelvis pain, dyspareunia, slightly enlarged uterus. ANESTHESIA: General. SURGEON: Junior Blackman D.O. BRICKMASON SUPERVISOR: ALYCIA Myrick URINE OUTPUT: Yellow and clear. BLOOD LOSS: 350 mL. SPECIMEN: Uterus. FINDINGS: Slightly enlarged uterus, normal appearing ovaries, absent tubes. PROCEDURE: The patient was taken back to the operating room, where she was prepped and draped in the normal sterile fashion after being placed in the dorsal lithotomy position. Patient's anesthesia was found to be adequate. Surgical timeout was performed using two patient identifiers. SCDs were on and in place. Two grams of Ancef were given prior to the surgery. Sterile Andrade catheter was inserted. Standard size VCare was secured to the uterine cervix and the surgeon changed gloves. Attention then was turned to the patient's abdomen, where a supraumbilical incision was then made. Two S retractors were used to identify the patient's fascia. The fascia was then tented up using Zarina clamps and the patient's fascia was incised sharply. Patient's abdomen was identified and entered bluntly. The patient had the trocar placed and a pneumoperitoneum was obtained. Approximately 4 liters of CO2 gas was used. The camera was then placed through the trocar. At this time, two robot trocars were placed in the patient's left and right side, two hand widths from the midline, and this was placed under direct visualization. The patient's tube on the right side was tended up and the vessel sealer was then used to come across the mesosalpinx, and this was carried down to the uterine ovarian ligament. The vessel sealer was carried down serially to the broad ligament, to the area of the bladder flap, which was then created anteriorly, and the uterine arteries were skeletonized and sealed using the vessel sealer. The colpotomy was made using the monopolar cautery on cut, and this was carried circumferentially, posteriorly to anteriorly, until the uterus was amputated. The specimen was then removed intact through the vagina, without difficulty. The vagina was then closed using two running V-Loc in a non-lock fashion. The robot was undocked. The abdomen was desufflated. The skin defects were closed using 4-0 Vicryl. Please note, the fascia was closed using 0 Vicryl. Sponge, lap and needle counts were correct x2. Patient was taken to recovery room in stable condition. The patient was awakened by Anesthesia first. Patient tolerated procedure well [facility] Clinical Note 06-23-2022 Note Date & Type Note Facility 06-23-2022 Note OPERATIVE NOTE OPERATION DATE: 06/23/2022 PROCEDURE: Diagnostic laparoscopy, D AND C hysteroscopy. PREOPERATIVE DIAGNOSIS: Menorrhagia, pelvic pain, dysmenorrhea, dyspareunia. POSTOPERATIVE DIAGNOSIS: Menorrhagia, pelvic pain, dysmenorrhea, dyspareunia, including significant adhesions of the uterus to the anterior abdominal wall. ANESTHESIA: General. SURGEON: Junior Blackman D.O. BRICKMASON SUPERVISOR: ALYCIA Myrick URINE OUTPUT: Yellow and clear. BLOOD LOSS: 5 mL. FINDINGS: Normal appearing ovaries. Normal appearing uterus except for the significant adhesions of the fundal region of the uterus to the anterior abdominal wall. Difficult to observe tubes. Fluffy appearing endometrium. No gross evidence of polyps, fibroids, malignancy. Both ostia seen. PROCEDURE: The patient was taken back to the Operating Room where she was placed in dorsal lithotomy position after given general anesthesia. The patient was prepped and draped in normal sterile fashion. A sponge stick was placed into the patient's vagina. Attention was turned to the patient's abdomen, where a small umbilical incision was made. The fascia was tented using Zarina clamps and the fascia was entered sharply. Confirmation of intra-abdominal placement of the 10 mm port was confirmed under direct visualization using a laparoscope. The patient's abdomen was then insufflated using CO2 gas with approximately 4 liters. A second port was placed left laterally; this was done under direct visualization with a 5 mm port. Survey of the patient's abdomen demonstrated normal liver and gallbladder. Survey of the patient's pelvic anatomy demonstrated normal appearing ovaries and tubes as well as normal appearing uterus. No endometrial implants could be noted, no evidence of any pelvic disease was seen, normal appearing pelvic cavity. All instruments were removed from the patient's abdomen. The patient's abdomen was desufflated of CO2 gas. The patient tolerated the procedure well. Sponge stick was removed from the patient's vagina. The patient's infraumbilical fascia was closed using #0 Vicryl on a GI needle. The patient's skin was closed laterally and infraumbilically using 4-0 Vicryl. The patient tolerated the procedure well. Sponge, lap and needle counts were correct x 2. The patient was taken to Recovery Room in stable condition. ? The patient was taken back to the Operating Room where she was prepped and draped in normal sterile fashion after being placed under general anesthesia without difficulty. She was also placed in the dorsal lithotomy position. A weighted speculum was placed in the patient's vagina. The anterior lip of the cervix was identified and grasped with a single tooth tenaculum. The patient's uterus was then sounded roughly to [ ] cm. The patient was then gently dilated using Hegar dilators. The hysteroscope was passed through the patient's cervix into the uterus. Both ostia were identified. Normal appearing endometrium. No gross evidence of polyps, fibroids or malignancy. The hysteroscope was then removed from the patient's uterus. At that point, gentle curettage was performed until a gritty texture was noted. The endometrial curettings were sent out to pathology. The single tooth tenaculum was then removed from the patient's anterior lip of the cervix where excellent hemostasis was noted. All instruments were removed from the patient's vagina. The patient tolerated the procedure well. Sponge, lap and needle counts were correct times two. The patient was taken to the Recovery Room in stable condition. [facility] Summary Purpose Family History No Family History Records Found Advance Directives No Advanced Directives Records Found Additional Source Comments INFORMATION SOURCE (unrecogn ized section and content) DATE CREATED AUTHOR 10/13/2022 [facility] FOR RECORDS PERTAINING TO PATIENTS WHO ARE OR HAVE BEEN ENROLLED IN A CHEMICAL DEPENDENCY/SUBSTANCEABUSE PROGRAM, SOME INFORMATION MAY BE OMITTED. This clinical summary was aggregated from multiple sources. Caution should be exercised in using it in the provision of clinical care. This summary normalizes information from multiple sources, and as a consequence, information in this document may materially change the coding, format and clinical context of patient data. In addition, data may be omitted in some cases. CLINICAL DECISIONS SHOULD BE BASED ON THE PRIMARY CLINICAL RECORDS. [employer] provides no warranty or guarantee of the accuracy or completeness of information in this document.
[2023-07-28 10:46] LABS: Basophils Absolute Auto 0.1 10^3/uL (0.0-0.1); Basophils Percent Auto 0.7 % (0.2-2.0); Eosinophils Absolute Auto 0.3 10^3/uL (0.0-0.7); Hematocrit 41.1 % (36.0-48.0); Hemoglobin 13.3 g/dL (12.0-16.0); Immature Granulocytes Abs Auto 0.03 10^3/uL (0.00-0.03); Immature Granulocytes Pct Auto 0.3 % (0.0-0.5); Lymphocytes Absolute Auto 2.7 10^3/uL (1.2-3.8); Lymphocytes Percent Auto 26.6 % (20.5-60.0); Mean Corpuscular HGB Conc 32.4 g/dL (29.9-35.2); Mean Corpuscular Hemoglobin 29.3 pg (26.7-34.0); Mean Corpuscular Volume 90.5 fL (81.0-99.0); Mean Platelet Volume 9.1 fL (9.5-13.5); Monocytes Absolute Auto 0.5 10^3/uL (0.3-0.8); Monocytes Percent Auto 4.5 % (1.7-12.0); Neutrophils Absolute Auto 6.6 10^3/uL (1.4-6.5); Neutrophils Percent Auto 64.9 % (43.0-75.0); Platelet Count 366 10^3/uL (150-450); Red Blood Count 4.54 10^6/uL (4.20-5.40); Red Cell Distribution Width 14.8 % (11.0-15.0); White Blood Count 10.1 10^3/uL (4.0-11.0)
[2023-07-28 10:55] LABS: Estimated Average Glucose 103 mg/dL; Glycohemoglobin A1C 5.2 % (4.5-6.2)
[2023-07-28 12:01] LABS: Alanine Aminotransferase 29 U/L (14-59); Albumin Globulin Ratio 1.1; Albumin Level 3.8 g/dL (3.4-5.0); Alkaline Phosphatase 70 U/L (46-116); Anion Gap 13.8; Aspartate Amino Transferase 18 U/L (15-37); BUN Creatinine Ratio 15.1; Bilirubin Total 0.4 mg/dL (0.2-1.0); Calcium 8.6 mg/dL (8.5-10.1); Carbon Dioxide 27.3 mmol/L (21.0-32.0); Chloride 105 mmol/L (98-107); Chol HDL Ratio 4.3; Cholesterol 233 mg/dL (<=200); Estimated GFR (African America >60 (>=60); Estimated GFR (Non-African Ame >60 (>=60); Free T3 1.66 pg/mL (2.18-3.98); Globulin 3.6 g/dL; Glucose 88 mg/dL (74-106); HDL Cholesterol 54 mg/dL (40-60); Potassium 4.1 mmol/L (3.5-5.1); Sodium 142 mmol/L (136-145); Thyroid Stimulating Hormone 1.088 uIU/mL (0.358-3.740); Total Protein 7.4 g/dL (6.4-8.2); Triglycerides 127 mg/dL (<=150); VLDL CHOLESTEROL 25.4 mg/dL
[2023-07-30 15:08] LABS: Insulin 14.5 uIU/mL (2.6-24.9)
== END 2023-07-28 10:24 | disposition home or self-care (01) ==
LOC: LAB 10:26
PROVIDERS: PCP Family Medicine; Visit Provider Family Medicine
DX: Z00.00 Encounter for general adult medical examination without abnormal findings (principal); E78.5 Hyperlipidemia, unspecified; R73.09 Other abnormal glucose; Z12.12 Encounter for screening for malignant neoplasm of rectum; D64.9 Anemia, unspecified
CPT/HCPCS: 36415; 80053; 80061; 83036; 83525; 83540; 84436; 84443; 84481; 85025

== ENCOUNTER 2023-10-03 20:03 | Outpatient (REF) | payer BC, SELFPAY ==
--- OUTSIDE RECORDS SUMMARY | 2023-10-03 20:09 | XMS_ITS | CCD ---
Author Organization [facility] Care Team Providers Care Outdoor Fitness Trainer Name Role Phone VINCENT ., DR PACHECO Consulting Unavailable HOY ., DR ZAMARRIPA Primary Care Unavailable VINCENT ., DR PACHECO Admitting Unavailable VINCENT ., DR PACHECO Attending Unavailable LEONIE SMITH Consulting Unavailable DESIREE II, ELENO Consulting Unavailable VINCENT ., DR PACHECO Attending Unavailable HOY ., DR ZAMARRIPA Primary Care Unavailable VINCENT ., DR PACHECO Admitting Unavailable [place], DR ALEX Patel Consulting Unavailable HOY ., [...] agent Drug allergy (disorder) [facility] Repository Problems Active Problems Problem Classification Problem [...] 2 Chronic Other aftercare (1 source) Other termination clerk (current) drug therapy; Translations: [OTH [facility] CURRENT DRUG THERAPY] Onset: 3 Episodic Other [...] Urea nitrogen [Mass/Vol] 7.0 mg/dL Normal 7.0-18.0 [facility] Comment on above: Performed By: #### P TT, PT #### [facility] [address] [place] [address] Dr. Abdoulaye Kincaid CBC AUTO DIFFon 08-05-2022 BASO # 0.0 103/ul Normal 0.0-0.1 [facility] Comment on above: Performed By: #### C BC #### [facility] [address] [place] [address] Dr. Abdoulaye Kincaid Basophils/100 WBC (Bld) 0.1 % Critically low 0.2-2.0 [facility] Comment on above: Performed By: #### C BC #### [facility] [address] [place] [address] Dr. Abdoulaye Kincaid EO # 0.0 103/ul Normal 0.0-0.7 [facility] Comment on above: Performed By: #### C BC #### [facility] [address] [place] [address] Dr. Abdoulaye Kincaid Eosinophils/100 WBC (Bld) 0.0 % Critically low 0.9-7.0 [facility] Comment on above: Performed By: #### C BC #### [facility] [address] [place] [address] Dr. Abdoulaye Kincaid Erythrocyte distribution width (RBC) [Ratio] 13.8 % Normal 11.0-15.0 [facility] Comment on above: Performed By: #### C BC #### [facility] [address] [place] [address] Dr. Abdoulaye Kincaid Hematocrit (Bld) [Volume fraction] 35.4 % Critically low 36.0-48.0 [facility] Comment on above: Performed By: #### C BC #### [facility] [address] [place] [address] Dr. Abdoulaye Kincaid Hemoglobin (Bld) [Mass/Vol] 11.8 g/dL Critically low 12.0-16.0 [facility] Comment on above: Performed By: #### C BC #### [facility] [address] [place] [address] Dr. Abdoulaye Kincaid IG # 0.05 10e3/ul Critically high 0.00-0.03 [facility] Comment on above: Performed By: #### C BC #### [facility] [address] [place] [address] Dr. Abdoulaye Kincaid IG % 0.4 % Normal 0.0-0.5 [facility] Comment on above: Performed By: #### C BC #### [facility] [address] [place] [address] Dr. Abdoulaye Kincaid LYMPH # 2.1 103/ul Normal 1.2-3.8 [facility] Comment on above: Performed By: #### C BC #### [facility] [address] [place] [address] Dr. Abdoulaye Kincaid Lymphocytes/100 WBC (Bld) 15.1 % Critically low 20.5-60.0 [facility] Comment on above: Performed By: #### C BC #### [facility] [address] [place] [address] Dr. Abdoulaye Kincaid MANUAL DIFF REQ NO Normal [facility] Comment on above: Performed By: #### C BC #### [facility] [address] [place] [address] Dr. Abdoulaye Kincaid MCH (RBC) [Entitic mass] 29.1 pg Normal 26.7-34.0 [facility] Comment on above: Performed By: #### C BC #### [facility] [address] [address] [address] Abdoulaye Kincaid MCHC (RBC) [Mass/Vol] 33.3 g/dL Normal 29.9-35.2 [facility] Comment on above: Performed By: #### C BC #### [facility] [address] [address] [address] Abdoulaye Kincaid MCV (RBC) [Entitic vol] 87.2 fL Normal 81.0-99.0 [facility] Comment on above: Performed By: #### C BC #### [facility] [address] [address] [address] Abdoulaye Kincaid MONO # 0.8 103/ul Normal 0.3-0.8 [facility] Comment on above: Performed By: #### C BC #### [facility] [address] [address] [address] Abdoulaye Kincaid Monocytes/100 WBC (Bld) 6.2 % Normal 1.7-12.0 [facility] Comment on above: Performed By: #### C BC #### [facility] [address] [address] [address] Abdoulaye Kincaid NEUT # 10.7 103/ul Critically high 1.4-6.5 [facility] Comment on above: Performed By: #### C BC #### [facility] [address] [address] [address] Abdoulaye Kincaid Neutrophils/100 WBC (Bld) 78.2 % Critically high 43.0-75.0 [facility] Comment on above: Performed By: #### C BC #### [facility] [address] [address] [address] Abdoulaye Kincaid Platelet mean volume (Bld) [Entitic vol] 9.4 fL Critically low 9.5-13.5 [facility] Comment on above: Performed By: #### C BC #### [facility] [address] [address] [address] Abdoulaye Kincaid PLT 361 103/ul Normal 150-450 [facility] Comment on above: Performed By: #### C BC #### [facility] [address] [address] [address] Abdoulaye Kincaid RBC 4.06 106/ul Critically low 4.20-5.40 [facility] Comment on above: Performed By: #### C BC #### [facility] [address] [address] [address] Abdoulaye Kincaid WBC 13.6 103/ul Critically high 4.0-11.0 [facility] Comment on above: Performed By: #### C BC #### [facility] [address] [address] [address] Abdoulaye Kincaid CREATININEon 08-05-2022 Creatinine [Mass/Vol] 0.73 mg/dL Normal 0.55-1.02 [facility] Comment on above: Performed By: #### P TT, PT #### [facility] [address] [place] [address] Dr. Abdoulaye Kincaid EGFR-AF NICARAGUAN >60 Normal >=60 [facility] Comment on above: Performed By: #### P TT, PT #### [facility] [address] [place] [address] Dr. Abdoulaye Kincaid EGFR-NON AF NICARAGUAN >60 Normal >=60 [facility] Comment on above: Performed By: #### P TT, PT #### [facility] [address] [place] [address] Dr. Abdoulaye Kincaid PREG QUANT HCGon 08-04-2022 HCG QUANT 0 mIU/mL Normal [facility] Comment on above: Performed By: #### P TT, PT #### [facility] [address] [place] [address] Dr. Abdoulaye Kincaid HCG RANGE SEE BELOW Normal [facility] Comment on above: Result Comment: 5-50 0.2-1 WEEK 50-500 1-2 WEEKS 100-5,000 2-3 WEEKS 500-10,000 3-4 WEEKS 1,000-50,000 4-5 WEEKS 10,000-100,000 5-6 WEEKS 15,000-200,000 6-8 WEEKS 10,000-100,000 2-3 MONTHS Performed By: #### P TT, PT #### [facility] [address] [address] [address] Abdoulaye Kincaid CBC AUTO DIFFon 08-01-2022 BASO # 0.1 103/ul Normal 0.0-0.1 [facility] Comment on above: Performed By: #### C BC #### [facility] [address] [address] [address] Abdoulaye Kincaid Basophils/100 WBC (Bld) 0.6 % Normal 0.2-2.0 [facility] Comment on above: Performed By: #### C BC #### [facility] [address] [place] [address] Dr. Abdoulaye Kincaid EO # 0.3 103/ul Normal 0.0-0.7 [facility] Comment on above: Performed By: #### C BC #### [facility] [address] [place] [address] Dr. Abdoulaye Kincaid Eosinophils/100 WBC (Bld) 2.5 % Normal 0.9-7.0 [facility] Comment on above: Performed By: #### C BC #### [facility] [address] [place] [address] Dr. Abdoulaye Kincaid Erythrocyte distribution width (RBC) [Ratio] 13.9 % Normal 11.0-15.0 [facility] Comment on above: Performed By: #### C BC #### [facility] [address] [place] [address] Dr. Abdoulaye Kincaid Hematocrit (Bld) [Volume fraction] 39.5 % Normal 36.0-48.0 [facility] Comment on above: Performed By: #### C BC #### [facility] [address] [place] [address] Dr. Abdoulaye Kincaid Hemoglobin (Bld) [Mass/Vol] 13.4 g/dL Normal 12.0-16.0 [facility] Comment on above: Performed By: #### C BC #### [facility] [address] [place] [address] Dr. Abdoulaye Kincaid IG # 0.04 10e3/ul Critically high 0.00-0.03 [facility] Comment on above: Performed By: #### C BC #### [facility] [address] [place] [address] Dr. Abdoulaye Kincaid IG % 0.4 % Normal 0.0-0.5 [facility] Comment on above: Performed By: #### C BC #### [facility] [address] [place] [address] Dr. Abdoulaye Kincaid LYMPH # 2.3 103/ul Normal 1.2-3.8 [facility] Comment on above: Performed By: #### C BC #### [facility] [address] [place] [address] Dr. Abdoulaye Kincaid Lymphocytes/100 WBC (Bld) 22.8 % Normal 20.5-60.0 [facility] Comment on above: Performed By: #### C BC #### [facility] [address] [place] [address] Dr. Abdoulaye Kincaid MANUAL DIFF REQ NO Normal [facility] Comment on above: Performed By: #### C BC #### [facility] [address] [place] [address] Dr. Abdoulaye Kincaid MCH (RBC) [Entitic mass] 29.3 pg Normal 26.7-34.0 [facility] Comment on above: Performed By: #### C BC #### [facility] [address] [place] [address] Dr. Abdoulaye Kincaid MCHC (RBC) [Mass/Vol] 33.9 g/dL Normal 29.9-35.2 [facility] Comment on above: Performed By: #### C BC #### [facility] [address] [place] [address] Dr. Abdoulaye Kincaid MCV (RBC) [Entitic vol] 86.4 fL Normal 81.0-99.0 [facility] Comment on above: Performed By: #### C BC #### [facility] [address] [place] [address] Dr. Abdoulaye Kincaid MONO # 0.4 103/ul Normal 0.3-0.8 [facility] Comment on above: Performed By: #### C BC #### [facility] [address] [place] [address] Dr. Abdoulaye Kincaid Monocytes/100 WBC (Bld) 4.4 % Normal 1.7-12.0 [facility] Comment on above: Performed By: #### C BC #### [facility] [address] [address] [address] Abdoulaye Kincaid NEUT # 7.0 103/ul Critically high 1.4-6.5 [facility] Comment on above: Performed By: #### C BC #### [facility] [address] [place] [address] Dr. Abdoulaye Kincaid Neutrophils/100 WBC (Bld) 69.3 % Normal 43.0-75.0 [facility] Comment on above: Performed By: #### C BC #### [facility] [address] [place] [address] Dr. Abdoulaye Kincaid Platelet mean volume (Bld) [Entitic vol] 9.1 fL Critically low 9.5-13.5 [facility] Comment on above: Performed By: #### C BC #### [facility] [address] [place] [address] Dr. Abdoulaye Kincaid PLT 352 103/ul Normal 150-450 [facility] Comment on above: Performed By: #### C BC #### [facility] [address] [place] [address] Dr. Abdoulaye Kincaid RBC 4.57 106/ul Normal 4.20-5.40 [facility] Comment on above: Performed By: #### C BC #### [facility] [address] [place] [address] Dr. Abdoulaye Kincaid WBC 10.1 103/ul Normal 4.0-11.0 [facility] Comment on above: Performed By: #### C BC #### [facility] [address] [place] [address] Dr. Abdoulaye Kincaid LIVER PROFILEon 08-01-2022 Albumin [Mass/Vol] 4.0 g/dL Normal 3.4-5.0 [facility] Comment on above: Performed By: #### L GEM, BMP #### [facility] [address] [address] [address] Abdoulaye Kincaid Albumin/Globulin [Mass ratio] 1.2 {ratio} Normal [facility] Comment on above: Performed By: #### L IVER, BMP #### [facility] [address] [address] [address] Abdoulaye Kincaid ALP [Catalytic activity/Vol] 89 U/L Normal 46-116 [facility] Comment on above: Performed By: #### L IVBREN, BMP #### [facility] [address] [address] [address] Abdoulaye Kincaid ALT [Catalytic activity/Vol] 29 U/L Normal 14-59 [facility] Comment on above: Performed By: #### L GEM, BMP #### [facility] [address] [address] [address] Abdoulaye Kincaid AST [Catalytic activity/Vol] 20 U/L Normal 15-37 [facility] Comment on above: Performed By: #### L GEM, BMP #### [facility] [address] [address] [address] Abdoulaye Kincaid BILI, CONJUGATED 0.1 mg/dL Normal 0.0-0.2 [facility] Comment on above: Performed By: #### L GEM, BMP #### [facility] [address] [address] [address] Abdoulaye Kincaid Bilirubin [Mass/Vol] 0.5 mg/dL Normal 0.2-1.0 [facility] Comment on above: Performed By: #### L IVBREN, BMP #### [facility] [address] [address] [address] Abdoulaye Kincaid Globulin (S) [Mass/Vol] 3.4 g/dL Normal [facility] Comment on above: Performed By: #### L IVBREN, BMP #### [facility] [address] [address] [address] Abdoulaye Kincaid Protein [Mass/Vol] 7.4 g/dL Normal 6.4-8.2 [facility] Comment on above: Performed By: #### L GEM, BMP #### [facility] [address] [place] [address] Dr. Abdoulaye Kincaid PROF CHEM 8 (BAS METB)on Anion gap [Moles/Vol] 14.8 mmol/L Normal [facility] Comment on above: Performed By: #### L IVER, BMP #### [facility] [address] [place] [address] Dr. Abdoulaye Kincaid Calcium [Mass/Vol] 9.1 mg/dL Normal 8.5-10.1 [facility] Comment on above: Performed By: #### L IVER, BMP #### [facility] [address] [place] [address] Dr. Abdoulaye Kincaid Chloride [Moles/Vol] 107 mmol/L Normal 98-107 [facility] Comment on above: Performed By: #### L IVER, BMP #### [facility] [address] [place] [address] Dr. Abdoulaye Kincaid CO2 [Moles/Vol] 27.3 mmol/L Normal 21.0-32.0 [facility] Comment on above: Performed By: #### L IVER, BMP #### [facility] [address] [place] [address] Dr. Abdoulaye Kincaid Creatinine [Mass/Vol] 0.90 mg/dL Normal 0.55-1.02 [facility] Comment on above: Performed By: #### L IVER, BMP #### [facility] [address] [place] [address] Dr. Abdoulaye Kincaid EGFR-AF NICARAGUAN >60 Normal >=60 [facility] Comment on above: Performed By: #### L IVER, BMP #### [facility] [address] [place] [address] Dr. Abdoulaye Kincaid EGFR-NON AF NICARAGUAN >60 Normal >=60 [facility] Comment on above: Performed By: #### L IVER, BMP #### [facility] [address] [place] [address] Dr. Abdoulaye Kincaid Glucose [Mass/Vol] 109 mg/dL Critically high 74-106 [facility] Comment on above: Performed By: #### L IVER, BMP #### [facility] [address] [place] [address] Dr. Abdoulaye Kincaid Potassium [Moles/Vol] 4.1 mmol/L Normal 3.5-5.1 [facility] Comment on above: Performed By: #### L IVER, BMP #### [facility] [address] [place] [address] Dr. Abdoulaye Kincaid Sodium [Moles/Vol] 145 mmol/L Normal 136-145 [facility] Comment on above: Performed By: #### L IVER, BMP #### [facility] [address] [place] [address] Dr. Abdoulaye Kincaid Urea nitrogen [Mass/Vol] 14.0 mg/dL Normal 7.0-18.0 [facility] Comment on above: Performed By: #### L IVBREN, BMP #### [facility] [address] [place] [address] Dr. Abdoulaye Kincaid Urea nitrogen/Creatinine [Mass ratio] 15.6 mg/mg Normal [facility] Comment on above: Performed By: #### L IVER, BMP #### [facility] [address] [place] [address] Dr. Abdoulaye Kincaid PROTIMEon 08-01-2022 INR Coag (PPP) [Relative time] 0.95 {INR} Normal [facility] Comment on above: Performed By: #### P TT, PT #### [facility] [address] [place] [address] Dr. Abdoulaye Kincaid INR GUIDELINES SEE BELOW Normal [facility] Comment on above: Result Comment: NIMA RED INR: 2.0 - 3.0 CONDITIONS NOT LISTED BELOW 2.5 - 3.5 FOR PROSTHETIC HEART VALVE REPLACEMENT 2.5 - 3.5 RECURRENT THROMBOSIS Performed By: #### P TT, PT #### [facility] [address] [place] [address] Dr. Abdoulaye Kincaid PT Coag (PPP) [Time] 10.1 s Normal 9.0-11.6 [facility] Comment on above: Performed By: #### P TT, PT #### [facility] [address] [place] [address] Dr. Abdoulaye Kincaid PTTon 08-01-2022 aPTT Coag (Bld) [Time] 27.4 s Normal 22.3-36.2 [facility] Comment on above: Performed By: #### P TT, PT #### [facility] [address] [place] [address] Dr. Abdoulaye Kincaid TYPE AND SCREENon 08-01-2022 TYPE AND SCREEN Negative Normal [facility] Comment on above: Performed By: #### P TT, PT #### [facility] [address] [place] [address] Dr. Abdoulaye Kincaid CBC AUTO DIFFon 06-23-2022 BASO # 0.1 103/ul Normal 0.0-0.1 [facility] Comment on above: Performed By: #### A 1C #### [facility] [address] [place] [address] Dr. Abdoulaye Kincaid Basophils/100 WBC (Bld) 0.4 % Normal 0.2-2.0 [facility] Comment on above: Performed By: #### A 1C #### [facility] [address] [place] [address] Dr. Abdoulaye Kincaid EO # 0.2 103/ul Normal 0.0-0.7 [facility] Comment on above: Performed By: #### A 1C #### [facility] [address] [place] [address] Dr. Abdoulaye Kincaid Eosinophils/100 WBC (Bld) 1.7 % Normal 0.9-7.0 [facility] Comment on above: Performed By: #### A 1C #### [facility] [address] [place] [address] Dr. Abdoulaye Kincaid Erythrocyte distribution width (RBC) [Ratio] 14.4 % Normal 11.0-15.0 [facility] Comment on above: Performed By: #### A 1C #### [facility] [address] [place] [address] Dr. Abdoulaye Kincaid Hematocrit (Bld) [Volume fraction] 38.5 % Normal 36.0-48.0 [facility] Comment on above: Performed By: #### A 1C #### [facility] [address] [place] [address] Dr. Abdoulaye Kincaid Hemoglobin (Bld) [Mass/Vol] 12.9 g/dL Normal 12.0-16.0 [facility] Comment on above: Performed By: #### A 1C #### [facility] [address] [place] [address] Dr. Abdoulaye Kincaid IG # 0.04 10e3/ul Critically high 0.00-0.03 [facility] Comment on above: Performed By: #### A 1C #### [facility] [address] [place] [address] Dr. Abdoulaye Kincaid IG % 0.3 % Normal 0.0-0.5 [facility] Comment on above: Performed By: #### A 1C #### [facility] [address] [place] [address] Dr. Abdoulaye Kincaid LYMPH # 2.5 103/ul Normal 1.2-3.8 [facility] Comment on above: Performed By: #### A 1C #### [facility] [address] [place] [address] Dr. Abdoulaye Kincaid Lymphocytes/100 WBC (Bld) 20.6 % Normal 20.5-60.0 [facility] Comment on above: Performed By: #### A 1C #### [facility] [address] [place] [address] Dr. Abdoulaye Kincaid MANUAL DIFF REQ NO Normal [facility] Comment on above: Performed By: #### A 1C #### [facility] [address] [place] [address] Dr. Abdoulaye Kincaid MCH (RBC) [Entitic mass] 29.0 pg Normal 26.7-34.0 [facility] Comment on above: Performed By: #### A 1C #### [facility] [address] [place] [address] Dr. Abdoulaye Kincaid MCHC (RBC) [Mass/Vol] 33.5 g/dL Normal 29.9-35.2 [facility] Comment on above: Performed By: #### A 1C #### [facility] [address] [address] [address] Abdoulaye Kincaid MCV (RBC) [Entitic vol] 86.5 fL Normal 81.0-99.0 [facility] Comment on above: Performed By: #### A 1C #### [facility] [address] [address] [address] Abdoulaye Kincaid MONO # 0.7 103/ul Normal 0.3-0.8 [facility] Comment on above: Performed By: #### A 1C #### [facility] [address] [address] [address] Abdoulaye Kincaid Monocytes/100 WBC (Bld) 5.5 % Normal 1.7-12.0 [facility] Comment on above: Performed By: #### A 1C #### [facility] [address] [address] [address] Abdoulaye Kincaid NEUT # 8.6 103/ul Critically high 1.4-6.5 [facility] Comment on above: Performed By: #### A 1C #### [facility] [address] [address] [address] Abdoulaye Kincaid Neutrophils/100 WBC (Bld) 71.5 % Normal 43.0-75.0 [facility] Comment on above: Performed By: #### A 1C #### [facility] [address] [address] [address] Abdoulaye Kincaid Platelet mean volume (Bld) [Entitic vol] 9.3 fL Critically low 9.5-13.5 [facility] Comment on above: Performed By: #### A 1C #### [facility] [address] [address] [address] Abdoulaye Kincaid PLT 372 103/ul Normal 150-450 [facility] Comment on above: Performed By: #### A 1C #### [facility] [address] [address] [address] Abdoulaye Kincaid RBC 4.45 106/ul Normal 4.20-5.40 [facility] Comment on above: Performed By: #### A 1C #### [facility] [address] [address] [address] Abdoulaye Kincaid WBC 12.0 103/ul Critically high 4.0-11.0 [facility] Comment on above: Performed By: #### A 1C #### [facility] [address] [address] [address] Abdoulaye Kincaid PREG QUANT HCGon 06-23-2022 HCG QUANT 1 mIU/mL Normal [facility] Comment on above: Performed By: #### P REGQNT #### [facility] [address] [address] [address] Abdoulaye Kincaid HCG RANGE SEE BELOW Normal [facility] Comment on above: Result Comment: 5-50 0.2-1 WEEK 50-500 1-2 WEEKS 100-5,000 2-3 WEEKS 500-10,000 3-4 WEEKS 1,000-50,000 4-5 WEEKS 10,000-100,000 5-6 WEEKS 15,000-200,000 6-8 WEEKS 10,000-100,000 2-3 MONTHS Performed By: #### P REGQNT #### [facility] [address] [place] [address] Dr. Abdoulaye Kincaid XR CHEST 2 Von [...] Date: 2022-06-14 12:14 Normal [facility] CBC AUTO DIFFon 05-04-2022 BASO # 0.1 103/ul Normal 0.0-0.1 [facility] Comment on above: Performed By: #### P TT, PT #### [facility] [address] [place] [address] Dr. Abdoulaye Kincaid Basophils/100 WBC (Bld) 0.5 % Normal 0.2-2.0 [facility] Comment on above: Performed By: #### P TT, PT #### [facility] [address] [place] [address] Dr. Abdoulaye Kincaid EO # 0.2 103/ul Normal 0.0-0.7 [facility] Comment on above: Performed By: #### P TT, PT #### [facility] [address] [place] [address] Dr. Abdoulaye Kincaid Eosinophils/100 WBC (Bld) 1.8 % Normal 0.9-7.0 [facility] Comment on above: Performed By: #### P TT, PT #### [facility] [address] [place] [address] Dr. Abdoulaye Kincaid Erythrocyte distribution width (RBC) [Ratio] 14.4 % Normal 11.0-15.0 [facility] Comment on above: Performed By: #### P TT, PT #### [facility] [address] [place] [address] Dr. Abdoulaye Kincaid Hematocrit (Bld) [Volume fraction] 40.7 % Normal 36.0-48.0 [facility] Comment on above: Performed By: #### P TT, PT #### [facility] [address] [place] [address] Dr. Abdoulaye Kincaid Hemoglobin (Bld) [Mass/Vol] 13.4 g/dL Normal 12.0-16.0 [facility] Comment on above: Performed By: #### P TT, PT #### [facility] [address] [place] [address] Dr. Abdoulaye Kincaid IG # 0.06 10e3/ul Critically high 0.00-0.03 [facility] Comment on above: Performed By: #### P TT, PT #### [facility] [address] [place] [address] Dr. Abdoulaye Kincaid IG % 0.5 % Normal 0.0-0.5 [facility] Comment on above: Performed By: #### P TT, PT #### [facility] [address] [place] [address] Dr. Abdoulaye Kincaid LYMPH # 2.3 103/ul Normal 1.2-3.8 [facility] Comment on above: Performed By: #### P TT, PT #### [facility] [address] [place] [address] Dr. Abdoulaye Kincaid Lymphocytes/100 WBC (Bld) 20.7 % Normal 20.5-60.0 [facility] Comment on above: Performed By: #### P TT, PT #### [facility] [address] [place] [address] Dr. Abdoulaye Kincaid MANUAL DIFF REQ NO Normal [facility] Comment on above: Performed By: #### P TT, PT #### [facility] [address] [place] [address] Dr. Abdoulaye Kincaid MCH (RBC) [Entitic mass] 28.3 pg Normal 26.7-34.0 [facility] Comment on above: Performed By: #### P TT, PT #### [facility] [address] [place] [address] Dr. Abdoulaye Kincaid MCHC (RBC) [Mass/Vol] 32.9 g/dL Normal 29.9-35.2 [facility] Comment on above: Performed By: #### P TT, PT #### [facility] [address] [place] [address] Dr. Abdoulaye Kincaid MCV (RBC) [Entitic vol] 86.0 fL Normal 81.0-99.0 [facility] Comment on above: Performed By: #### P TT, PT #### [facility] [address] [place] [address] Dr. Abdoulaye Kincaid MONO # 0.5 103/ul Normal 0.3-0.8 [facility] Comment on above: Performed By: #### P TT, PT #### [facility] [address] [place] [address] Dr. Abdoulaye Kincaid Monocytes/100 WBC (Bld) 4.8 % Normal 1.7-12.0 [facility] Comment on above: Performed By: #### P TT, PT #### [facility] [address] [place] [address] Dr. Abdoulaye Kincaid NEUT # 8.0 103/ul Critically high 1.4-6.5 [facility] Comment on above: Performed By: #### P TT, PT #### [facility] [address] [address] [address] Abdoulaye Kincaid Neutrophils/100 WBC (Bld) 71.7 % Normal 43.0-75.0 [facility] Comment on above: Performed By: #### P TT, PT #### [facility] [address] [address] [address] Abdoulaye Kincaid Platelet mean volume (Bld) [Entitic vol] 9.2 fL Critically low 9.5-13.5 [facility] Comment on above: Performed By: #### P TT, PT #### [facility] [address] [address] [address] Abdoulaye Kincaid PLT 392 103/ul Normal 150-450 [facility] Comment on above: Performed By: #### P TT, PT #### [facility] [address] [address] [address] Abdoulaye Kincaid RBC 4.73 106/ul Normal 4.20-5.40 [facility] Comment on above: Performed By: #### P TT, PT #### [facility] [address] [address] [address] Abdoulaye Kincaid WBC 11.2 103/ul Critically high 4.0-11.0 [facility] Comment on above: Performed By: #### P TT, PT #### [facility] [address] [address] [address] Abdoulaye Kincaid FREE T4on 05-04-2022 Free T4 [Mass/Vol] 1.17 ng/dL Normal 0.76-1.46 [facility] Comment on above: Performed By: #### C BC #### [facility] [address] [address] [address] Abdoulaye Kincaid MG MAMM SCREEN 3D BRANDY CADon 05-04-2022 MG MAMM SCREEN 3D BRANDY CAD Patient: PALMA SHERMAN Exam Date: 05/04/2022 : 1975 Gender:F Ordering : DR JUNIOR BLACKMAN . Admission #: [id number] Family : Order #: [id number] CLICK HERE TO VIEW EXAM RADIOLOGY REPORT [...] at age 69. LOCATION: [facility] BREAST COMPOSITION: Scattered areas fibroglandular density. FINDINGS: [...] 05/04/2022 at 11:52 Normal [facility] PREG QUANT HCGon 05-04-2022 HCG QUANT <1 Normal [facility] Comment on above: Performed By: #### P TT, PT #### [facility] [address] [place] [address] Dr. Abdoulaye Kincaid HCG RANGE SEE BELOW Normal [facility] Comment on above: Result Comment: 5-50 0.2-1 WEEK 50-500 1-2 WEEKS 100-5,000 2-3 WEEKS 500-10,000 3-4 WEEKS 1,000-50,000 4-5 WEEKS 10,000-100,000 5-6 WEEKS 15,000-200,000 6-8 WEEKS 10,000-100,000 2-3 MONTHS Performed By: #### P TT, PT #### [facility] [address] [place] [address] Dr. Abdoulaye Kincaid PROTIMEon 05-04-2022 INR Coag (PPP) [Relative time] 1.01 {INR} Normal [facility] Comment on above: Performed By: #### A 1C #### [facility] [address] [place] [address] Dr. Abdoulaye iKncaid INR GUIDELINES SEE BELOW Normal [facility] Comment on above: Result Comment: NIMA RED INR: 2.0 - 3.0 CONDITIONS NOT LISTED BELOW 2.5 - 3.5 FOR PROSTHETIC HEART VALVE REPLACEMENT 2.5 - 3.5 RECURRENT THROMBOSIS Performed By: #### A 1C #### [facility] [address] [place] [address] Dr. Abdoulaye Kincaid PT Coag (PPP) [Time] 10.9 s Normal 9.0-11.6 [facility] Comment on above: Performed By: #### A 1C #### [facility] [address] [place] [address] Dr. Abdoulaye Kincaid PTTon 05-04-2022 aPTT Coag (Bld) [Time] 30.2 s Normal 22.3-36.2 [facility] Comment on above: Performed By: #### A 1C #### [facility] [address] [place] [address] Dr. Abdoulaye Kincaid TSHon 05-04-2022 TSH 1.886 uIU/mL Normal 0.358-3.740 [facility] Comment on above: Performed By: #### T SH, PREGQNT #### [facility] [address] [place] [address] Dr. Abdoulaye Kincaid US PELVIS AND TRANSVAGon [...] by: ALEX FRAGOSO Date: 2022-05-04 16:34 Normal [facility] PAP ACOG PANEL 2: 30 to 65on 04-11-2022 . . Normal [facility] Comment on above: Result Comment: Perf ormed at: WB Performed By: #### C BC #### [facility] [address] [address] [address] Abdoulaye Kincaid Age Gdln ACOG Testing 30-65 Normal [facility] Comment on above: Performed By: #### C BC #### [facility] [address] [address] [address] Abdoulaye Kincaid DIAGNOSIS: Comment Normal [facility] Comment on above: Result Comment: NEGA TIVE FOR INTRAEPITHELIAL LESION OR MALIGNANCY. Performed at: WB Performed By: #### C BC #### [facility] [address] [address] [address] Abdoulaye Kincaid HPV Aptima Negative Normal Negative [facility] Comment on above: Result Comment: This nucleic acid amplification test detects fourteen high-risk HPV types (16,18,31,33,35,39,45,51,52,56,58,59,66,68) without differentiation. Performed at: =G Performed By: #### C BC #### [facility] [address] [id number] Abdoulaye Kincaid HPV Genotype Reflex Comment Normal [facility] Comment on above: Result Comment: Crit eria not met, HPV Genotype not performed. Performed at: WB Performed By: #### C BC #### [facility] [address] [id number] Abdoulaye Kincaid Methodology: Comment Normal [facility] Comment on above: Result Comment: This liquid based ThinPrep(R) pap test was screened with the use of an image guided system. Performed at: WB Performed By: #### C BC #### [facility] [address] [address] [address] Abdoulaye Kincaid Note: Comment Normal [facility] Comment on above: Result Comment: The [...] By: #### C BC #### [facility] [address] [place] [address] Dr. Abdoulaye Kincaid Performed by: Comment Normal [facility] Comment on above: Result Comment: Ashtyn Crenshaw, Event Organizer Performed at: WB Performed By: #### C BC #### [facility] [address] [place] [address] Dr. Abdoulaye Kincaid Specimen adequacy: Comment Normal [facility] Comment on above: Result Comment: Sati sfactory for evaluation. Endocervical and/or squamous metaplastic cells (endocervical component) are present. Performed at: WB Performed By: #### C BC #### [facility] [address] [place] [address] Dr. Abdoulaye Kincaid CBC AUTO DIFFon 02-21-2022 BASO # 0.1 103/ul Normal 0.0-0.1 [facility] Comment on above: Performed By: #### C BC #### [facility] [address] [place] [address] Dr. Abdoulaye Kincaid Basophils/100 WBC (Bld) 0.6 % Normal 0.2-2.0 [facility] Comment on above: Performed By: #### C BC #### [facility] [address] [place] [address] Dr. Abdoulaye Kincaid EO # 0.2 103/ul Normal 0.0-0.7 [facility] Comment on above: Performed By: #### C BC #### [facility] [address] [place] [address] Dr. Abdoulaye Kincaid Eosinophils/100 WBC (Bld) 2.3 % Normal 0.9-7.0 [facility] Comment on above: Performed By: #### C BC #### [facility] [address] [place] [address] Dr. Abdoulaye Kincaid Erythrocyte distribution width (RBC) [Ratio] 14.1 % Normal 11.0-15.0 [facility] Comment on above: Performed By: #### C BC #### [facility] [address] [place] [address] Dr. Abdoulaye Kincaid Hematocrit (Bld) [Volume fraction] 41.6 % Normal 36.0-48.0 [facility] Comment on above: Performed By: #### C BC #### [facility] [address] [place] [address] Dr. Abdoulaye Kincaid Hemoglobin (Bld) [Mass/Vol] 13.6 g/dL Normal 12.0-16.0 [facility] Comment on above: Performed By: #### C BC #### [facility] [address] [place] [address] Dr. Abdoulaye Kincaid IG # 0.02 10e3/ul Normal 0.00-0.03 [facility] Comment on above: Performed By: #### C BC #### [facility] [address] [place] [address] Dr. Abdoulaye Kincaid IG % 0.2 % Normal 0.0-0.5 [facility] Comment on above: Performed By: #### C BC #### [facility] [address] [place] [address] Dr. Abdoulaye Kincaid LYMPH # 2.3 103/ul Normal 1.2-3.8 [facility] Comment on above: Performed By: #### C BC #### [facility] [address] [place] [address] Dr. Abdoulaye Kincaid Lymphocytes/100 WBC (Bld) 26.9 % Normal 20.5-60.0 [facility] Comment on above: Performed By: #### C BC #### [facility] [address] [place] [address] Dr. Abdoulaye Kincaid MANUAL DIFF REQ NO Normal [facility] Comment on above: Performed By: #### C BC #### [facility] [address] [place] [address] Dr. Abdoulaye Kincaid MCH (RBC) [Entitic mass] 28.6 pg Normal 26.7-34.0 [facility] Comment on above: Performed By: #### C BC #### [facility] [address] [place] [address] Dr. Abdoulaye Kincaid MCHC (RBC) [Mass/Vol] 32.7 g/dL Normal 29.9-35.2 [facility] Comment on above: Performed By: #### C BC #### [facility] [address] [place] [address] Dr. Abdoulaye Kincaid MCV (RBC) [Entitic vol] 87.4 fL Normal 81.0-99.0 [facility] Comment on above: Performed By: #### C BC #### [facility] [address] [place] [address] Dr. Abdoulaye Kincaid MONO # 0.5 103/ul Normal 0.3-0.8 [facility] Comment on above: Performed By: #### C BC #### [facility] [address] [place] [address] Dr. Abdoulaye Kincaid Monocytes/100 WBC (Bld) 5.2 % Normal 1.7-12.0 [facility] Comment on above: Performed By: #### C BC #### [facility] [address] [place] [address] Dr. Abdoulaye Kincaid NEUT # 5.6 103/ul Normal 1.4-6.5 [facility] Comment on above: Performed By: #### C BC #### [facility] [address] [place] [address] Dr. Abdoulaye Kincaid Neutrophils/100 WBC (Bld) 64.8 % Normal 43.0-75.0 [facility] Comment on above: Performed By: #### C BC #### [facility] [address] [place] [address] Dr. Abdoulaye Kincaid Platelet mean volume (Bld) [Entitic vol] 9.3 fL Critically low 9.5-13.5 [facility] Comment on above: Performed By: #### C BC #### [facility] [address] [address] [address] Abdoulaye Kincaid PLT 371 103/ul Normal 150-450 [facility] Comment on above: Performed By: #### C BC #### [facility] [address] [place] [address] Dr. Abdoulaye Kincaid RBC 4.76 106/ul Normal 4.20-5.40 [facility] Comment on above: Performed By: #### C BC #### [facility] [address] [place] [address] Dr. Abdoulaye Kincaid WBC 8.6 103/ul Normal 4.0-11.0 [facility] Comment on above: Performed By: #### C BC #### [facility] [address] [place] [address] Dr. Abdoulaye Kincaid FREE T3on 02-21-2022 FREE T3 2.87 pg/mlL Normal 2.18-3.98 [facility] Comment on above: Performed By: #### A 1C #### [facility] [address] [place] [address] Dr. Abdoulaye Kincaid GLYCOHEMOGLOBIN A1Con 2021 ADA RECOMMENDATION SEE BELOW Normal [facility] Comment on above: Result Comment: ADA RECOMMENDED LIMIT 4.0 - 6.0 ADA THERAPEUTIC TARGET < 7.0 ACTION SUGGESTED > 7.0 Performed By: #### A 1C #### [facility] [address] [place] [address] Dr. Abdoulaye Kincaid Glucose [Mass/Vol] 111 mg/dL Normal [facility] Comment on above: Performed By: #### A 1C #### [facility] [address] [place] [address] Dr. Abdoulaye Kincaid HbA1c (Bld) [Mass fraction] 5.5 % Normal 4.5-6.2 [facility] Comment on above: Performed By: #### A 1C #### [facility] [address] [place] [address] Dr. Abdoulaye Kincaid LIPID PROFILEon 02-21-2022 CHOL-HDL RATIO NORM SEE BELOW Normal [facility] Comment on above: Result Comment: 3.3 - 4.4 LOW RISK 4.4 - 7.1 AVERAGE RISK 7.1 - 11.0 MODERATE RISK >11.0 HIGH RISK Performed By: #### A 1C #### [facility] [address] [address] [address] Abdoulaye Kincaid Cholesterol [Mass/Vol] 226 mg/dL Critically high <=200 [facility] Comment on above: Performed By: #### A 1C #### [facility] [address] [address] [address] Abdoulaye Kincaid Cholesterol in HDL [Mass/Vol] 53 mg/dL Normal 40-60 [facility] Comment on above: Performed By: #### A 1C #### [facility] [address] [address] [address] Abdoulaye Kincaid Cholesterol in LDL [Mass/Vol] 141.6 mg/dL Normal [facility] Comment on above: Performed By: #### A 1C #### [facility] [address] [address] [address] Abdoulaye Kincaid Cholesterol.total/Cho lesterol in HDL [Mass ratio] 4.3 {ratio} Normal [facility] Comment on above: Performed By: #### A 1C #### [facility] [address] [address] [address] Abdoulaye Kincaid HDL NORMAL > or = 60 mg/dl - LO W CARDIOVASCULAR RISK <40 mg/dl - HIGH CARDIOVASCULAR RISK Normal [facility] Comment on above: Performed By: #### A 1C #### [facility] [address] [address] [address] Abdoulaye Kincaid LDL CALC NORMAL SEE BELOW Normal [facility] Comment on above: Result Comment: <100 mg/dl OPTIMAL 100 - 129 mg/dl NEAR OR ABOVE OPTIMAL 130 - 159 mg/dl BORDERLINE HIGH 160 - 189 mg/dl HIGH >190 mg/dl VERY HIGH Performed By: #### A 1C #### [facility] [address] [address] [address] Abdoulaye Kincaid Triglyceride [Mass/Vol] 157 mg/dL Critically high <=150 [facility] Comment on above: Performed By: #### A 1C #### [facility] [address] [address] [address] Abdoulaye Kincaid VLDL CALC 31.4 mg/dL Normal [facility] Comment on above: Performed By: #### A 1C #### [facility] [address] [place] [address] Dr. Abdoulaye Kincaid PROF 14(COMP METB)on 022 Albumin [Mass/Vol] 4.1 g/dL Normal 3.4-5.0 [facility] Comment on above: Performed By: #### A 1C #### [facility] [address] [place] [address] Dr. Abdoulaye Kincaid Albumin/Globulin [Mass ratio] 1.1 {ratio} Normal [facility] Comment on above: Performed By: #### A 1C #### [facility] [address] [place] [address] Dr. Abdoulaye Kincaid ALP [Catalytic activity/Vol] 83 U/L Normal 46-116 [facility] Comment on above: Performed By: #### A 1C #### [facility] [address] [place] [address] Dr. Abdoulaye Kincaid ALT [Catalytic activity/Vol] 30 U/L Normal 14-59 [facility] Comment on above: Performed By: #### A 1C #### [facility] [address] [place] [address] Dr. Abdoulaye Kincaid Anion gap [Moles/Vol] 11.0 mmol/L Normal [facility] Comment on above: Performed By: #### A 1C #### [facility] [address] [place] [address] Dr. Abdoulaye Kincaid AST [Catalytic activity/Vol] 16 U/L Normal 15-37 [facility] Comment on above: Performed By: #### A 1C #### [facility] [address] [place] [address] Dr. Abdoulaye Kincaid Bilirubin [Mass/Vol] 0.6 mg/dL Normal 0.2-1.0 [facility] Comment on above: Performed By: #### A 1C #### [facility] [address] [place] [address] Dr. Abdoulaye Kincaid Calcium [Mass/Vol] 8.9 mg/dL Normal 8.5-10.1 [facility] Comment on above: Performed By: #### A 1C #### [facility] [address] [place] [address] Dr. Abdoulaye Kincaid Chloride [Moles/Vol] 106 mmol/L Normal 98-107 [facility] Comment on above: Performed By: #### A 1C #### [facility] [address] [place] [address] Dr. Abdoulaye Kincaid CO2 [Moles/Vol] 28.0 mmol/L Normal 21.0-32.0 [facility] Comment on above: Performed By: #### A 1C #### [facility] [address] [place] [address] Dr. Abdoulaye Kincaid Creatinine [Mass/Vol] 0.72 mg/dL Normal 0.55-1.02 [facility] Comment on above: Performed By: #### A 1C #### [facility] [address] [place] [address] Dr. Abdoulaye Kincaid EGFR-AF NICARAGUAN >60 Normal >=60 [facility] Comment on above: Performed By: #### A 1C #### [facility] [address] [place] [address] Dr. Abdoulaye Kincaid EGFR-NON AF NICARAGUAN >60 Normal >=60 [facility] Comment on above: Performed By: #### A 1C #### [facility] [address] [place] [address] Dr. Abdoulaye Kincaid Globulin (S) [Mass/Vol] 3.7 g/dL Normal [facility] Comment on above: Performed By: #### A 1C #### [facility] [address] [place] [address] Dr. Abdoulaye Kincaid Glucose [Mass/Vol] 97 mg/dL Normal 74-106 [facility] Comment on above: Performed By: #### A 1C #### [facility] [address] [place] [address] Dr. Abdoulaye Kincaid Potassium [Moles/Vol] 4.0 mmol/L Normal 3.5-5.1 [facility] Comment on above: Performed By: #### A 1C #### [facility] [address] [address] [address] Abdoulaye Kincaid Protein [Mass/Vol] 7.8 g/dL Normal 6.4-8.2 [facility] Comment on above: Performed By: #### A 1C #### [facility] [address] [address] [address] Abdoulaye Kincaid Sodium [Moles/Vol] 141 mmol/L Normal 136-145 [facility] Comment on above: Performed By: #### A 1C #### [facility] [address] [address] [address] Abdoulaye Kincaid Urea nitrogen [Mass/Vol] 10.0 mg/dL Normal 7.0-18.0 [facility] Comment on above: Performed By: #### A 1C #### [facility] [address] [place] [address] Dr. Abdoulaye Kincaid Urea nitrogen/Creatinine [Mass ratio] 13.9 mg/mg Normal [facility] Comment on above: Performed By: #### A 1C #### [facility] [address] [place] [address] Dr. Abdoulaye Kincaid T4on 02-21-2022 T4 [Mass/Vol] 10.90 ug/dL Normal 4.80-13.90 [facility] Comment on above: Performed By: #### A 1C #### [facility] [address] [place] [address] Dr. Abdoulaye Kincaid TSHon 02-21-2022 TSH 0.662 uIU/mL Normal 0.358-3.740 [facility] Comment on above: Performed By: #### A 1C #### [facility] [address] [address] [address] Abdoulaye Kincaid VITAMIN D 25 OHon 02-21-2022 VIT D 25-OH 19.8 ng/mL Normal [facility] Comment on above: Performed By: #### A 1C #### [facility] [address] [place] [address] Dr. Abdoulaye Kincaid VIT D RANGES SEE BELOW Normal [facility] Comment on above: Result Comment: <20 ng/mL Vit D deficient 20 - <30 ng/mL Vit D insufficient 30 - 100 ng/mL Vit D sufficient >100 ng/mL Potential Toxicity Performed By: #### A 1C #### [facility] [address] [place], [place] [address] Dr. Abdoulaye Kincaid Encounters Encounter Date Encounter Type Care Provider Facility Start: 08-04-2022 Encounter for prepro cedural laboratory examination DR JUNIOR BLACKMAN . [facility] Start: 08-04-2022 End: 08-05-[address] JUNIOR BLACKMAN . Facility:[facility] Start: 08-01-2022 End: 08-02-[address] JUNIOR BLACKMAN . Facility[facility] Start: 08-01-2022 End: 08-02-2022 Encounter for preprocedural laboratory examination DR JUNIOR BLACKMAN . Facility:[facility] Start: 06-23-2022 End: 06-23-[address] JUNIOR BLACKMAN . Facility[facility] Start: 06-16-2022 Encounter for prepro cedural cardiovascular examination DR JUNIOR BLACKMAN . [facility] Start: 06-14-2022 End: 06-15-[address] JUNIOR BLACKMAN . Facility:[facility] Start: 06-14-2022 End: 06-15-2022 Encounter for preprocedural cardiovascular examination DR JUNIOR BLACKMAN . Facility:[facility] Start: 05-04-2022 End: 05-05-[address] ALEX FRAGOSO Facility:[facility] Start: 04-03-2022 End: 04-03-[address] JUNIOR BLACKMAN . Facility[facility] Start: 02-24-2022 Encounter for genera l adult medical examination without abnormal findings DR MARILOU CERVANTES . [facility] Start: 02-21-2022 End: 02-22-[address] MARILOU CERVANTES . Facility:[facility] Start: 02-21-2022 End: 02-22-2022 Encounter for general adult medical examination without abnormal findings DR MARILOU CERVANTES . Facility:[facility] Payers Date Payer Category Payer Unknown [id number] 2.16.84 [id number] 1975 Unknown [id number] 2.16.84 [id number] 1975 Unknown [id number] 2.16.84 [id number] 1976 Unknown [id number] 2.16.84 [id number] 1976 Unknown [id number] 2.16.84 [id number] 1976 Unknown [id number] 2.16.84 [id number] 1976 Unknown [id number] 2.16.84 [id number] 1976 Unknown [id number] 2.16.84 [id number] 1959 Unknown [id number] Clinical Note 08-04-2022 Note Date & Type Note Facility 08-04-2022 Note OPERATIVE NOTE OPERATION DATE: 08/04/2022 PROCEDURE: Robotic assisted laparoscopic hysterectomy with cystoscopy. PREOPERATIVE DIAGNOSIS: Menorrhagia, dysmenorrhea, pelvis pain, dyspareunia. POSTOPERATIVE DIAGNOSIS: Menorrhagia, dysmenorrhea, pelvis pain, dyspareunia, slightly enlarged uterus. ANESTHESIA: General. SURGEON: Junior Blackman D.O. TIRE BUILDER OPERATOR: ALYCIA Myrick URINE OUTPUT: Yellow and clear. [...] Patient tolerated procedure well [facility] Note 06-23-2022 Note Date & Type Note Facility 06-23-2022 Note OPERATIVE NOTE OPERATION DATE: 06/23/2022 PROCEDURE: Diagnostic laparoscopy, D AND C hysteroscopy. PREOPERATIVE DIAGNOSIS: Menorrhagia, pelvic pain, dysmenorrhea, dyspareunia. POSTOPERATIVE DIAGNOSIS: Menorrhagia, pelvic pain, dysmenorrhea, dyspareunia, including significant adhesions of the uterus to the anterior abdominal wall. ANESTHESIA: General. SURGEON: Junior Blackman D.O. TIRE BUILDER OPERATOR: ALYCIA Myrick URINE OUTPUT: Yellow and clear. [...] Room in stable condition. [facility] Summary Purpose Family History No Family History Records Found Advance Directives No Advanced Directives Records Found Additional Source Comments INFORMATION SOURCE (unrecogn ized section and content) DATE CREATED AUTHOR 10/13/2022 [facility] FOR RECORDS PERTAINING TO PATIENTS WHO [...] BE BASED ON THE PRIMARY CLINICAL RECORDS. [facility]. provides no warranty or guarantee of the accuracy or completeness of information in this document.
== END 2023-10-03 20:04 | disposition home or self-care (01) ==
LOC: LAB 20:03
PROVIDERS: PCP Family Medicine; Visit Provider Obstetrics & Gynecology
DX: Z01.419 Encounter for gynecological examination (general) (routine) without abnormal findings (principal)
CPT/HCPCS: 88175

== ENCOUNTER 2023-11-21 10:33 | Outpatient (OUT) | payer BC, SELFPAY ==
[2023-11-21 11:41] LABS: Chol HDL Ratio 4.2; Cholesterol 238 mg/dL (<=200); Free T3 2.73 pg/mL (2.18-3.98); HDL Cholesterol 57 mg/dL (40-60); Thyroid Stimulating Hormone 1.241 uIU/mL (0.358-3.740); Triglycerides 84 mg/dL (<=150); VLDL CHOLESTEROL 16.8 mg/dL
== END 2023-11-21 10:34 | disposition home or self-care (01) ==
LOC: LAB 10:43
PROVIDERS: PCP Family Medicine; Visit Provider Family Medicine
DX: E78.5 Hyperlipidemia, unspecified (principal); E03.9 Hypothyroidism, unspecified
CPT/HCPCS: 36415; 80061; 84436; 84443; 84481

== ENCOUNTER 2024-04-09 08:58 | Outpatient (OUT) | payer BC, SELFPAY ==
--- NOTE | 2024-04-09 09:00 | MM_ITS ---
Patient Name: PALMA SHERMAN MR#: [id number] : 1975 Exam Date: 04/09/2024 Ordering Doctor: DR Gabriel Blackman . RADIOLOGY REPORT PROCEDURE: MM TOMOSYNTHESIS SCREENING BI COMPARISON: MG MAMM SCREEN 3D BRANDY CAD, 05/04/2022. INDICATIONS: Screening Calculator Name NCI Breast Cancer Risk Assessment Tool 5 Year Breast Cancer Risk 0.80% Lifetime Breast Cancer Risk 8.40% Personal Breast Cancer No Personal Ovarian Cancer No Treatments None Family Cancers Grandmother-paternal with breast cancer at age ~38; Grandmother-maternal with lung cancer at age ~62; Grandfather-maternal with lung cancer at age ~68. LOCATION: [facility] BREAST COMPOSITION: There are scattered areas of fibroglandular density. FINDINGS: DIAGNOSTIC CATEGORY 2--BENIGN FINDING. NO CHANGE FROM COMPARISON. Scattered benign-appearing calcifications are present. RIGHT BREAST: No significant suspicious finding. LEFT BREAST: No significant suspicious finding. RECOMMENDATIONS: ROUTINE MAMMOGRAM AND CLINICAL EVALUATION IN 12 MONTHS. PLEASE NOTE: A NORMAL MAMMOGRAM DOES NOT EXCLUDE THE POSSIBILITY OF BREAST CANCER. A CLINICALLY SUSPICIOUS PALPABLE LUMP SHOULD BE BIOPSIED. Dictated by: Tony Reina MD on 04/09/2024 at 11:36 Approved by: Tony Reina MD on 04/09/2024 at 11:49
--- OUTSIDE RECORDS SUMMARY | 2024-04-09 09:18 | XMS_ITS | CCD ---
Author Organization [facility] Care Team Providers Care Punchboard Assembler Name Role Phone VINCENT ., DR PACHECO Consulting Unavailable HOY ., DR ZAMARRIPA Primary Care Unavailable VINCENT ., DR PACHECO Admitting Unavailable VINCENT ., DR PACHECO Attending Unavailable LEONIE SMITH Consulting Unavailable DESIREE II, ELENO Consulting Unavailable VINCENT ., DR PACHECO Attending Unavailable HOY ., DR ZAMARRIPA Primary Care Unavailable VINCENT ., DR PACHECO Admitting Unavailable ROSCOMMON, DR ALEX Patel Consulting Unavailable HOY ., [...] PACHECO Attending Unavailable RULA MEADE Consulting Unavailable VINCENTJUNIOR Attending Unavailable Allergies Allergy Classification Reported Allergen(s) Allergy Type Date of Onset Reaction(s) Facility (1 source) Adhesive agent Drug allergy (disorder) [facility] Repository Problems Active Problems Problem Classification [...] 2 Chronic Other aftercare (1 source) Other laborer [employer] (current) drug therapy; Translations: [OTH CORRECTION CURRENT DRUG THERAPY] Onset: 3 Episodic Other [...] Urea nitrogen [Mass/Vol] 7.0 mg/dL Normal 7.0-18.0 [facility] Comment on above: Performed By: #### P TT, PT #### [facility] [address] [place] [address] Dr. Abdoulaye Kincaid CBC AUTO DIFFon 08-05-2022 BASO # 0.0 103/ul Normal 0.0-0.1 [facility] Comment on above: Performed By: #### C BC #### [facility] [address] [place] [address] Dr. Abdoulaye Kincaid Basophils/100 WBC (Bld) 0.1 % Critically low 0.2-2.0 [facility] Comment on above: Performed By: #### C BC #### [facility] [address] [place] [address] Dr. Abdoulaye Kincaid EO # 0.0 103/ul Normal 0.0-0.7 [facility] Comment on above: Performed By: #### C BC #### [facility] [address] [place] [address] Dr. Abdoulaye Kincaid Eosinophils/100 WBC (Bld) 0.0 % Critically low 0.9-7.0 [facility] Comment on above: Performed By: #### C BC #### [facility] [address] [place] [address] Dr. Abdoulaye Kincaid Erythrocyte distribution width (RBC) [Ratio] 13.8 % Normal 11.0-15.0 [facility] Comment on above: Performed By: #### C BC #### [facility] [address] [place] [address] Dr. Abdoulaye Kincaid Hematocrit (Bld) [Volume fraction] 35.4 % Critically low 36.0-48.0 [facility] Comment on above: Performed By: #### C BC #### [facility] [address] [place] [address] Dr. Abdoulaye Kincaid Hemoglobin (Bld) [Mass/Vol] 11.8 g/dL Critically low 12.0-16.0 [facility] Comment on above: Performed By: #### C BC #### [facility] [address] [place] [address] Dr. Abdoulaye Kincaid IG # 0.05 10e3/ul Critically high 0.00-0.03 [facility] Comment on above: Performed By: #### C BC #### [facility] [address] [place] [address] Dr. Abdoulaye Kincaid IG % 0.4 % Normal 0.0-0.5 [facility] Comment on above: Performed By: #### C BC #### [facility] [address] [place] [address] Dr. Abdoulaye Kincaid LYMPH # 2.1 103/ul Normal 1.2-3.8 [facility] Comment on above: Performed By: #### C BC #### [facility] [address] [place] [address] Dr. Abdoulaye Kincaid Lymphocytes/100 WBC (Bld) 15.1 % Critically low 20.5-60.0 [facility] Comment on above: Performed By: #### C BC #### [facility] [address] [place] [address] Dr. Abdoulaye Kincaid MANUAL DIFF REQ NO Normal [facility] Comment on above: Performed By: #### C BC #### [facility] [address] [place] [address] Dr. Abdoulaye Kincaid MCH (RBC) [Entitic mass] 29.1 pg Normal 26.7-34.0 [facility] Comment on above: Performed By: #### C BC #### [facility] [address] [address] [address] Abdoulaye Kincaid MCHC (RBC) [Mass/Vol] 33.3 g/dL Normal 29.9-35.2 [facility] Comment on above: Performed By: #### C BC #### [facility] [address] [place] [address] Dr. Abdoulaye Kincaid MCV (RBC) [Entitic vol] 87.2 fL Normal 81.0-99.0 [facility] Comment on above: Performed By: #### C BC #### [facility] [address] [place] [address] Dr. Abdoulaye Kincaid MONO # 0.8 103/ul Normal 0.3-0.8 [facility] Comment on above: Performed By: #### C BC #### [facility] [address] [place] [address] Dr. Abdoulaye Kincaid Monocytes/100 WBC (Bld) 6.2 % Normal 1.7-12.0 [facility] Comment on above: Performed By: #### C BC #### [facility] [address] [place] [address] Dr. Abdoulaye Kincaid NEUT # 10.7 103/ul Critically high 1.4-6.5 [facility] Comment on above: Performed By: #### C BC #### [facility] [address] [place] [address] Dr. Abdoulaye Kincaid Neutrophils/100 WBC (Bld) 78.2 % Critically high 43.0-75.0 [facility] Comment on above: Performed By: #### C BC #### [facility] [address] [place] [address] Dr. Abdoulaye Kincaid Platelet mean volume (Bld) [Entitic vol] 9.4 fL Critically low 9.5-13.5 [facility] Comment on above: Performed By: #### C BC #### [facility] [address] [place] [address] Dr. Abdoulaye Kincaid PLT 361 103/ul Normal 150-450 [facility] Comment on above: Performed By: #### C BC #### [facility] [address] [address] [address] Abdoulaye Kincaid RBC 4.06 106/ul Critically low 4.20-5.40 [facility] Comment on above: Performed By: #### C BC #### [facility] [address] [address] [address] Abdoulaye Kincaid WBC 13.6 103/ul Critically high 4.0-11.0 [facility] Comment on above: Performed By: #### C BC #### [facility] [address] [address] [address] Abdoulaye Kincaid CREATININEon 08-05-2022 Creatinine [Mass/Vol] 0.73 mg/dL Normal 0.55-1.02 [facility] Comment on above: Performed By: #### P TT, PT #### [facility] [address] [address] [address] Abdoulaye Kincaid EGFR-AF CHILEAN >60 Normal >=60 [facility] Comment on above: Performed By: #### P TT, PT #### [facility] [address] [address] [address] Abdoulaye Kincaid EGFR-NON AF CHILEAN >60 Normal >=60 [facility] Comment on above: Performed By: #### P TT, PT #### [facility] [address] [place] [address] Dr. Abdoulaye Kincaid PREG QUANT HCGon 08-04-2022 HCG QUANT 0 mIU/mL Normal [facility] Comment on above: Performed By: #### P TT, PT #### [facility] [address] [place] [address] Dr. Abdoulaye Kincaid HCG RANGE SEE BELOW Normal [facility] Comment on above: Result Comment: 5-50 0.2-1 WEEK 50-500 1-2 WEEKS 100-5,000 2-3 WEEKS 500-10,000 3-4 WEEKS 1,000-50,000 4-5 WEEKS 10,000-100,000 5-6 WEEKS 15,000-200,000 6-8 WEEKS 10,000-100,000 2-3 MONTHS Performed By: #### P TT, PT #### [facility] [address] [place] [address] Dr. Abdoulaye Kincaid CBC AUTO DIFFon 08-01-2022 BASO # 0.1 103/ul Normal 0.0-0.1 [facility] Comment on above: Performed By: #### C BC #### [facility] [address] [place] [address] Dr. Abdoulaye Kincaid Basophils/100 WBC (Bld) 0.6 % Normal 0.2-2.0 [facility] Comment on above: Performed By: #### C BC #### [facility] [address] [place] [address] Dr. Abdoulaye Kincaid EO # 0.3 103/ul Normal 0.0-0.7 [facility] Comment on above: Performed By: #### C BC #### [facility] [address] [place] [address] Dr. Abdoulaye Kincaid Eosinophils/100 WBC (Bld) 2.5 % Normal 0.9-7.0 [facility] Comment on above: Performed By: #### C BC #### [facility] [address] [place] [address] Dr. Abdoulaye Kincaid Erythrocyte distribution width (RBC) [Ratio] 13.9 % Normal 11.0-15.0 [facility] Comment on above: Performed By: #### C BC #### [facility] [address] [place] [address] Dr. Abdoulaye Kincaid Hematocrit (Bld) [Volume fraction] 39.5 % Normal 36.0-48.0 [facility] Comment on above: Performed By: #### C BC #### [facility] [address] [place] [address] Dr. Abdoulaye Knicaid Hemoglobin (Bld) [Mass/Vol] 13.4 g/dL Normal 12.0-16.0 [facility] Comment on above: Performed By: #### C BC #### [facility] [address] [place] [address] Dr. Abdoulaye Kincaid IG # 0.04 10e3/ul Critically high 0.00-0.03 [facility] Comment on above: Performed By: #### C BC #### [facility] [address] [place] [address] Dr. Abdoulaye Kincaid IG % 0.4 % Normal 0.0-0.5 [facility] Comment on above: Performed By: #### C BC #### [facility] [address] [place] [address] Dr. Abdoulaye Kincaid LYMPH # 2.3 103/ul Normal 1.2-3.8 [facility] Comment on above: Performed By: #### C BC #### [facility] [address] [place] [address] Dr. Abdoulaye Kincaid Lymphocytes/100 WBC (Bld) 22.8 % Normal 20.5-60.0 [facility] Comment on above: Performed By: #### C BC #### [facility] [address] [place] [address] Dr. Abdoulaye Kincaid MANUAL DIFF REQ NO Normal [facility] Comment on above: Performed By: #### C BC #### [facility] [address] [place] [address] Dr. Abdoulaye Kincaid MCH (RBC) [Entitic mass] 29.3 pg Normal 26.7-34.0 [facility] Comment on above: Performed By: #### C BC #### [facility] [address] [place] [address] Dr. Abdoulaye Kincaid MCHC (RBC) [Mass/Vol] 33.9 g/dL Normal 29.9-35.2 [facility] Comment on above: Performed By: #### C BC #### [facility] [address] [place] [address] Dr. Abdoulaye Kincaid MCV (RBC) [Entitic vol] 86.4 fL Normal 81.0-99.0 [facility] Comment on above: Performed By: #### C BC #### [facility] [address] [place] [address] Dr. Abdoulaye Kincaid MONO # 0.4 103/ul Normal 0.3-0.8 [facility] Comment on above: Performed By: #### C BC #### [facility] [address] [address] [address] Abdoulaye Kincaid Monocytes/100 WBC (Bld) 4.4 % Normal 1.7-12.0 [facility] Comment on above: Performed By: #### C BC #### [facility] [address] [address] [address] Abdoulaye Kincaid NEUT # 7.0 103/ul Critically high 1.4-6.5 [facility] Comment on above: Performed By: #### C BC #### [facility] [address] [address] [address] Abdoulaye Kincaid Neutrophils/100 WBC (Bld) 69.3 % Normal 43.0-75.0 [facility] Comment on above: Performed By: #### C BC #### [facility] [address] [place] [address] Dr. Abdoulaye Kincaid Platelet mean volume (Bld) [Entitic vol] 9.1 fL Critically low 9.5-13.5 [facility] Comment on above: Performed By: #### C BC #### [facility] [address] [address] [address] Abdoulaye Kincaid PLT 352 103/ul Normal 150-450 [facility] Comment on above: Performed By: #### C BC #### [facility] [address] [place] [address] Dr. Abdoulaye Kincaid RBC 4.57 106/ul Normal 4.20-5.40 [facility] Comment on above: Performed By: #### C BC #### [facility] [address] [address] [address] Abdoulaye Kincaid WBC 10.1 103/ul Normal 4.0-11.0 [facility] Comment on above: Performed By: #### C BC #### [facility] [address] [place] [address] Dr. Abdoulaye Kincaid LIVER PROFILEon 08-01-2022 Albumin [Mass/Vol] 4.0 g/dL Normal 3.4-5.0 [facility] Comment on above: Performed By: #### L IVER, BMP #### [facility] [address] [address] [address] Abdoulaye Kincaid Albumin/Globulin [Mass ratio] 1.2 {ratio} Normal [facility] Comment on above: Performed By: #### L IVER, BMP #### [facility] [address] [address] [address] Abdoulaye Kincaid ALP [Catalytic activity/Vol] 89 U/L Normal 46-116 [facility] Comment on above: Performed By: #### L IVER, BMP #### [facility] [address] [address] [address] Abdoulaye Kincaid ALT [Catalytic activity/Vol] 29 U/L Normal 14-59 [facility] Comment on above: Performed By: #### L IVER, BMP #### [facility] [address] [place] [address] Dr. Abdoulaye Kincaid AST [Catalytic activity/Vol] 20 U/L Normal 15-37 [facility] Comment on above: Performed By: #### L IVER, BMP #### [facility] [address] [place] [address] Dr. Abdoulaye Kincaid BILI, CONJUGATED 0.1 mg/dL Normal 0.0-0.2 [facility] Comment on above: Performed By: #### L IVER, BMP #### [facility] [address] [address] [address] Abdoulaye Kincaid Bilirubin [Mass/Vol] 0.5 mg/dL Normal 0.2-1.0 [facility] Comment on above: Performed By: #### L IVER, BMP #### [facility] [address] [address] [address] Abdoulaye Kincaid Globulin (S) [Mass/Vol] 3.4 g/dL Normal [facility] Comment on above: Performed By: #### L IVER, BMP #### [facility] [address] [address] [address] Abdoulaye Kincaid Protein [Mass/Vol] 7.4 g/dL Normal 6.4-8.2 [facility] Comment on above: Performed By: #### L IVER, BMP #### [facility] [address] [place] [address] Dr. Abdoulaye Kincaid PROF CHEM 8 (BAS METB)on Anion gap [Moles/Vol] 14.8 mmol/L Normal [facility] Comment on above: Performed By: #### L IVER, BMP #### [facility] [address] [place] [address] Dr. Abdoulaye Kincaid Calcium [Mass/Vol] 9.1 mg/dL Normal 8.5-10.1 [facility] Comment on above: Performed By: #### L IVER, BMP #### [facility] [address] [place] [address] Dr. Abdoulaye Kincaid Chloride [Moles/Vol] 107 mmol/L Normal 98-107 [facility] Comment on above: Performed By: #### L IVER, BMP #### [facility] [address] [place] [address] Dr. Abdoulaye Kincaid CO2 [Moles/Vol] 27.3 mmol/L Normal 21.0-32.0 [facility] Comment on above: Performed By: #### L IVER, BMP #### [facility] [address] [place] [address] Dr. Abdoulaye Kincaid Creatinine [Mass/Vol] 0.90 mg/dL Normal 0.55-1.02 [facility] Comment on above: Performed By: #### L IVER, BMP #### [facility] [address] [place] [address] Dr. Abdoulaye Kincaid EGFR-AF CHILEAN >60 Normal >=60 [facility] Comment on above: Performed By: #### L IVER, BMP #### [facility] [address] [place] [address] Dr. Abdoulaye Kincaid EGFR-NON AF CHILEAN >60 Normal >=60 [facility] Comment on above: Performed By: #### L IVER, BMP #### [facility] [address] [place] [address] Dr. Abdoulaye Kincaid Glucose [Mass/Vol] 109 mg/dL Critically high 74-106 [facility] Comment on above: Performed By: #### L IVER, BMP #### [facility] [address] [place] [address] Dr. Abdoulaye Kincaid Potassium [Moles/Vol] 4.1 mmol/L Normal 3.5-5.1 [facility] Comment on above: Performed By: #### L IVER, BMP #### [facility] [address] [place] [address] Dr. Abdoulaye Kincaid Sodium [Moles/Vol] 145 mmol/L Normal 136-145 [facility] Comment on above: Performed By: #### L IVER, BMP #### [facility] [address] [place] [address] Dr. Abdoulaye Kincaid Urea nitrogen [Mass/Vol] 14.0 mg/dL Normal 7.0-18.0 [facility] Comment on above: Performed By: #### L IVBREN, BMP #### [facility] [address] [place] [address] Dr. Abdoulaye Kincaid Urea nitrogen/Creatinine [Mass ratio] 15.6 mg/mg Normal [facility] Comment on above: Performed By: #### L GEM, BMP #### [facility] [address] [place] [address] Dr. Abdoulaye Kincaid PROTIMEon 08-01-2022 INR Coag (PPP) [Relative time] 0.95 {INR} Normal [facility] Comment on above: Performed By: #### P TT, PT #### [facility] [address] [place] [address] Dr. Abdoulaye Kincaid INR GUIDELINES SEE BELOW Normal [facility] Comment on above: Result Comment: NIMA RED INR: 2.0 - 3.0 CONDITIONS NOT LISTED BELOW 2.5 - 3.5 FOR PROSTHETIC HEART VALVE REPLACEMENT 2.5 - 3.5 RECURRENT THROMBOSIS Performed By: #### P TT, PT #### [facility] [address] [place] [address] Dr. Abdoulaye Kincaid PT Coag (PPP) [Time] 10.1 s Normal 9.0-11.6 [facility] Comment on above: Performed By: #### P TT, PT #### [facility] [address] [place] [address] Dr. Abdoulaye Kincaid PTTon 08-01-2022 aPTT Coag (Bld) [Time] 27.4 s Normal 22.3-36.2 [facility] Comment on above: Performed By: #### P TT, PT #### [facility] [address] [place] [address] Dr. Abdoulaye Kincaid TYPE AND SCREENon 08-01-2022 TYPE AND SCREEN Negative Normal [facility] Comment on above: Performed By: #### P TT, PT #### [facility] [address] [place] [address] Dr. Abdoulaye Kincaid CBC AUTO DIFFon 06-23-2022 BASO # 0.1 103/ul Normal 0.0-0.1 [facility] Comment on above: Performed By: #### A 1C #### [facility] [address] [place] [address] Dr. Abdoulaye Kincaid Basophils/100 WBC (Bld) 0.4 % Normal 0.2-2.0 [facility] Comment on above: Performed By: #### A 1C #### [facility] [address] [place] [address] Dr. Abdoulaye Kincaid EO # 0.2 103/ul Normal 0.0-0.7 [facility] Comment on above: Performed By: #### A 1C #### [facility] [address] [place] [address] Dr. Abdoulaye Kincaid Eosinophils/100 WBC (Bld) 1.7 % Normal 0.9-7.0 [facility] Comment on above: Performed By: #### A 1C #### [facility] [address] [place] [address] Dr. Abdoulaye Kincaid Erythrocyte distribution width (RBC) [Ratio] 14.4 % Normal 11.0-15.0 [facility] Comment on above: Performed By: #### A 1C #### [facility] [address] [place] [address] Dr. Abdoulaye Kincaid Hematocrit (Bld) [Volume fraction] 38.5 % Normal 36.0-48.0 [facility] Comment on above: Performed By: #### A 1C #### [facility] [address] [place] [address] Dr. Abdoulaye Kincaid Hemoglobin (Bld) [Mass/Vol] 12.9 g/dL Normal 12.0-16.0 [facility] Comment on above: Performed By: #### A 1C #### [facility] [address] [place] [address] Dr. Abdoulaye Kincaid IG # 0.04 10e3/ul Critically high 0.00-0.03 [facility] Comment on above: Performed By: #### A 1C #### [facility] [address] [place] [address] Dr. Abdoulaye Kincaid IG % 0.3 % Normal 0.0-0.5 [facility] Comment on above: Performed By: #### A 1C #### [facility] [address] [place] [address] Dr. Abdoulaye Kincaid LYMPH # 2.5 103/ul Normal 1.2-3.8 [facility] Comment on above: Performed By: #### A 1C #### [facility] [address] [place] [address] Dr. Abdoulaye Kincaid Lymphocytes/100 WBC (Bld) 20.6 % Normal 20.5-60.0 [facility] Comment on above: Performed By: #### A 1C #### [facility] [address] [place] [address] Dr. Abdoulaye Kincaid MANUAL DIFF REQ NO Normal [facility] Comment on above: Performed By: #### A 1C #### [facility] [address] [place] [address] Dr. Abdoulaye Kincaid MCH (RBC) [Entitic mass] 29.0 pg Normal 26.7-34.0 [facility] Comment on above: Performed By: #### A 1C #### [facility] [address] [place] [address] Dr. Abdoulaye Kincaid MCHC (RBC) [Mass/Vol] 33.5 g/dL Normal 29.9-35.2 [facility] Comment on above: Performed By: #### A 1C #### [facility] [address] [address] [address] Abdoulaye Kincaid MCV (RBC) [Entitic vol] 86.5 fL Normal 81.0-99.0 [facility] Comment on above: Performed By: #### A 1C #### [facility] [address] [address] [address] Abdoulaye Kincaid MONO # 0.7 103/ul Normal 0.3-0.8 [facility] Comment on above: Performed By: #### A 1C #### [facility] [address] [address] [address] Abdoulaye Kincaid Monocytes/100 WBC (Bld) 5.5 % Normal 1.7-12.0 [facility] Comment on above: Performed By: #### A 1C #### [facility] [address] [address] [address] Abdoulaye Kincaid NEUT # 8.6 103/ul Critically high 1.4-6.5 [facility] Comment on above: Performed By: #### A 1C #### [facility] [address] [address] [address] Abdoulaye Kincaid Neutrophils/100 WBC (Bld) 71.5 % Normal 43.0-75.0 [facility] Comment on above: Performed By: #### A 1C #### [facility] [address] [address] [address] Abdoulaye Kincaid Platelet mean volume (Bld) [Entitic vol] 9.3 fL Critically low 9.5-13.5 [facility] Comment on above: Performed By: #### A 1C #### [facility] [address] [address] [address] Abdoulaye Kincaid PLT 372 103/ul Normal 150-450 [facility] Comment on above: Performed By: #### A 1C #### [facility] [address] [address] [address] Abdoulaye Kincaid RBC 4.45 106/ul Normal 4.20-5.40 [facility] Comment on above: Performed By: #### A 1C #### [facility] [address] [place] [address] Dr. Abdoulaye Kincaid WBC 12.0 103/ul Critically high 4.0-11.0 [facility] Comment on above: Performed By: #### A 1C #### [facility] [address] [place] [address] Dr. Abdoulaye Kincaid PREG QUANT HCGon 06-23-2022 HCG QUANT 1 mIU/mL Normal [facility] Comment on above: Performed By: #### P REGQNT #### [facility] [address] [place] [address] Dr. Abdoulaye Kincaid HCG RANGE SEE BELOW Normal [facility] Comment on above: Result Comment: 5-50 0.2-1 WEEK 50-500 1-2 WEEKS 100-5,000 2-3 WEEKS 500-10,000 3-4 WEEKS 1,000-50,000 4-5 WEEKS 10,000-100,000 5-6 WEEKS 15,000-200,000 6-8 WEEKS 10,000-100,000 2-3 MONTHS Performed By: #### P REGQNT #### [facility] [address] [place] [address] Dr. Abdoulaye Kincaid XR CHEST 2 Von [...] RULA MEADE Date: 2022-06-14 12:14 Normal [facility] CBC AUTO DIFFon 05-04-2022 BASO # 0.1 103/ul Normal 0.0-0.1 [facility] Comment on above: Performed By: #### P TT, PT #### [facility] [address] [place] [address] Dr. Abdoulaye Kincaid Basophils/100 WBC (Bld) 0.5 % Normal 0.2-2.0 [facility] Comment on above: Performed By: #### P TT, PT #### [facility] [address] [place] [address] Dr. Abdoulaye Kincaid EO # 0.2 103/ul Normal 0.0-0.7 [facility] Comment on above: Performed By: #### P TT, PT #### [facility] [address] [place] [address] Dr. Abdoulaye Kincaid Eosinophils/100 WBC (Bld) 1.8 % Normal 0.9-7.0 [facility] Comment on above: Performed By: #### P TT, PT #### [facility] [address] [place] [address] Dr. Abdoulaye Kincaid Erythrocyte distribution width (RBC) [Ratio] 14.4 % Normal 11.0-15.0 [facility] Comment on above: Performed By: #### P TT, PT #### [facility] [address] [place] [address] Dr. Abdoulaye Kincaid Hematocrit (Bld) [Volume fraction] 40.7 % Normal 36.0-48.0 [facility] Comment on above: Performed By: #### P TT, PT #### [facility] [address] [place] [address] Dr. Abdoulaye Kincaid Hemoglobin (Bld) [Mass/Vol] 13.4 g/dL Normal 12.0-16.0 [facility] Comment on above: Performed By: #### P TT, PT #### [facility] [address] [place] [address] Dr. Abdoulaye Kincaid IG # 0.06 10e3/ul Critically high 0.00-0.03 [facility] Comment on above: Performed By: #### P TT, PT #### [facility] [address] [place] [address] Dr. Abdoulaye Kincaid IG % 0.5 % Normal 0.0-0.5 [facility] Comment on above: Performed By: #### P TT, PT #### [facility] [address] [place] [address] Dr. Abdoulaye Kincaid LYMPH # 2.3 103/ul Normal 1.2-3.8 [facility] Comment on above: Performed By: #### P TT, PT #### [facility] [address] [address] [address] Abdoulaye Kincaid Lymphocytes/100 WBC (Bld) 20.7 % Normal 20.5-60.0 [facility] Comment on above: Performed By: #### P TT, PT #### [facility] [address] [place] [address] Dr. Abdoulaye Kincaid MANUAL DIFF REQ NO Normal [facility] Comment on above: Performed By: #### P TT, PT #### [facility] [address] [place] [address] Dr. Abdoulaye Kincaid MCH (RBC) [Entitic mass] 28.3 pg Normal 26.7-34.0 [facility] Comment on above: Performed By: #### P TT, PT #### [facility] [address] [place] [address] Dr. Abdoulaye Kincaid MCHC (RBC) [Mass/Vol] 32.9 g/dL Normal 29.9-35.2 [facility] Comment on above: Performed By: #### P TT, PT #### [facility] [address] [place] [address] Dr. Abdoulaye Kincaid MCV (RBC) [Entitic vol] 86.0 fL Normal 81.0-99.0 [facility] Comment on above: Performed By: #### P TT, PT #### [facility] [address] [place] [address] Dr. Abdoulaye Kincaid MONO # 0.5 103/ul Normal 0.3-0.8 [facility] Comment on above: Performed By: #### P TT, PT #### [facility] [address] [place] [address] Dr. Abdoulaye Kincaid Monocytes/100 WBC (Bld) 4.8 % Normal 1.7-12.0 [facility] Comment on above: Performed By: #### P TT, PT #### [facility] [address] [place] [address] Dr. Abdoulaye Kincaid NEUT # 8.0 103/ul Critically high 1.4-6.5 [facility] Comment on above: Performed By: #### P TT, PT #### [facility] [address] [address] [address] Abdoulaye Kincaid Neutrophils/100 WBC (Bld) 71.7 % Normal 43.0-75.0 [facility] Comment on above: Performed By: #### P TT, PT #### [facility] [address] [address] [address] Abdoulaye Kincaid Platelet mean volume (Bld) [Entitic vol] 9.2 fL Critically low 9.5-13.5 [facility] Comment on above: Performed By: #### P TT, PT #### [facility] [address] [place] [address] Dr. Abdoulaye Kincaid PLT 392 103/ul Normal 150-450 [facility] Comment on above: Performed By: #### P TT, PT #### [facility] [address] [place] [address] Dr. Abdoulaye Kincaid RBC 4.73 106/ul Normal 4.20-5.40 [facility] Comment on above: Performed By: #### P TT, PT #### [facility] [address] [place] [address] Dr. Abdoulaye Kincaid WBC 11.2 103/ul Critically high 4.0-11.0 [facility] Comment on above: Performed By: #### P TT, PT #### [facility] [address] [place] [address] Dr. Abdoulaye Kincaid FREE T4on 05-04-2022 Free T4 [Mass/Vol] 1.17 ng/dL Normal 0.76-1.46 [facility] Comment on above: Performed By: #### C BC #### [facility] [address] [place] [address] Dr. Abdoulaye Kincaid MG MAMM SCREEN 3D BRANDY CADon 05-04-2022 MG MAMM SCREEN 3D BRANDY CAD Patient: PALMA SHERMAN Exam Date: 05/04/2022 : 1975 Gender:F Ordering : DR JUNIOR BLACKMAN . Admission #: [id number] Family : Order #: [id number] CLICK HERE TO VIEW EXAM RADIOLOGY REPORT [...] lung cancer at age 69. LOCATION: [facility] BREAST COMPOSITION: Scattered areas fibroglandular density. [...] MD on 05/04/2022 at 11:52 Normal [facility] PREG QUANT HCGon 05-04-2022 HCG QUANT <1 Normal [facility] Comment on above: Performed By: #### P TT, PT #### [facility] [address] [place] [address] Dr. Abdoulaye Kincaid HCG RANGE SEE BELOW Normal [facility] Comment on above: Result Comment: 5-50 0.2-1 WEEK 50-500 1-2 WEEKS 100-5,000 2-3 WEEKS 500-10,000 3-4 WEEKS 1,000-50,000 4-5 WEEKS 10,000-100,000 5-6 WEEKS 15,000-200,000 6-8 WEEKS 10,000-100,000 2-3 MONTHS Performed By: #### P TT, PT #### [facility] [address] [place] [address] Dr. Abdoulaye Kincaid PROTIMEon 05-04-2022 INR Coag (PPP) [Relative time] 1.01 {INR} Normal [facility] Comment on above: Performed By: #### A 1C #### [facility] [address] [place] [address] Dr. Abdoulaye Kincaid INR GUIDELINES SEE BELOW Normal [facility] Comment on above: Result Comment: NIMA RED INR: 2.0 - 3.0 CONDITIONS NOT LISTED BELOW 2.5 - 3.5 FOR PROSTHETIC HEART VALVE REPLACEMENT 2.5 - 3.5 RECURRENT THROMBOSIS Performed By: #### A 1C #### [facility] [address] [place] [address] Dr. Abdoulaye Kincaid PT Coag (PPP) [Time] 10.9 s Normal 9.0-11.6 [facility] Comment on above: Performed By: #### A 1C #### [facility] [address] [place] [address] Dr. Abdoulaye Kincaid PTTon 05-04-2022 aPTT Coag (Bld) [Time] 30.2 s Normal 22.3-36.2 [facility] Comment on above: Performed By: #### A 1C #### [facility] [address] [place] [address] Dr. Abdoulaye Kincaid TSHon 05-04-2022 TSH 1.886 uIU/mL Normal 0.358-3.740 [facility] Comment on above: Performed By: #### T SH, PREGQNT #### [facility] [address] [place] [address] Dr. Abdoulaye Kincaid US PELVIS AND TRANSVAGon [...] by: ALEX FRAGOSO Date: 2022-05-04 16:34 Normal [facility] PAP ACOG PANEL 2: 30 to 65on 04-11-2022 . . Normal [facility] Comment on above: Result Comment: Perf ormed at: WB Performed By: #### C BC #### [facility] [address] [address] [address] Abdoulaye Kincaid Age Gdln ACOG Testing 31- Normal [facility] Comment on above: Performed By: #### C BC #### [facility] [address] [address] [address] Abdoulaye Kincaid DIAGNOSIS: Comment Normal [facility] Comment on above: Result Comment: NEGA TIVE FOR INTRAEPITHELIAL LESION OR MALIGNANCY. Performed at: WB Performed By: #### C BC #### [facility] [address] [address] [address] Abdoulaye Kincaid HPV Aptima Negative Normal Negative [facility] Comment on above: Result Comment: This nucleic acid amplification test detects fourteen high-risk HPV types (16,18,31,33,35,39,45,51,52,56,58,59,66,68) without differentiation. Performed at: =G Performed By: #### C BC #### [facility] [address] [address] [address] Abdoulaye Kincaid HPV Genotype Reflex Comment Normal [facility] Comment on above: Result Comment: Crit eria not met, HPV Genotype not performed. Performed at: WB Performed By: #### C BC #### [facility] [address] [id number] Abdoulaye Kincaid Methodology: Comment Normal [facility] Comment on above: Result Comment: This liquid based ThinPrep(R) pap test was screened with the use of an image guided system. Performed at: WB Performed By: #### C BC #### [facility] [address] [place] [address] Dr. Abdoulaye Kincaid Note: Comment Normal [facility] Comment on above: Result Comment: [...] WB Performed By: #### C BC #### [facility] [address] [place] [address] Dr. Abdoulaye Kincaid Performed by: Comment Normal [facility] Comment on above: Result Comment: Ashtyn Crenshaw, Small Machine Bindery Operator Performed at: WB Performed By: #### C BC #### [facility] [address] [place] [address] Dr. Abdoulaye Kincaid Specimen adequacy: Comment Normal [facility] Comment on above: Result Comment: Sati sfactory for evaluation. Endocervical and/or squamous metaplastic cells (endocervical component) are present. Performed at: WB Performed By: #### C BC #### [facility] [address] [place] [address] Dr. Abdoulaye Kincaid CBC AUTO DIFFon 02-21-2022 BASO # 0.1 103/ul Normal 0.0-0.1 [facility] Comment on above: Performed By: #### C BC #### [facility] [address] [place] [address] Dr. Abdoulaye Kincaid Basophils/100 WBC (Bld) 0.6 % Normal 0.2-2.0 [facility] Comment on above: Performed By: #### C BC #### [facility] [address] [place] [address] Dr. bAdoulaye Kincaid EO # 0.2 103/ul Normal 0.0-0.7 [facility] Comment on above: Performed By: #### C BC #### [facility] [address] [place] [address] Dr. Abdoulaye Kincaid Eosinophils/100 WBC (Bld) 2.3 % Normal 0.9-7.0 [facility] Comment on above: Performed By: #### C BC #### [facility] [address] [place] [address] Dr. Abdoulaye Kincaid Erythrocyte distribution width (RBC) [Ratio] 14.1 % Normal 11.0-15.0 [facility] Comment on above: Performed By: #### C BC #### [facility] [address] [place] [address] Dr. Abdoulaye Kincaid Hematocrit (Bld) [Volume fraction] 41.6 % Normal 36.0-48.0 [facility] Comment on above: Performed By: #### C BC #### [facility] [address] [place] [address] Dr. Abdoulaye Kincaid Hemoglobin (Bld) [Mass/Vol] 13.6 g/dL Normal 12.0-16.0 [facility] Comment on above: Performed By: #### C BC #### [facility] [address] [place] [address] Dr. Abdoulaye Kincaid IG # 0.02 10e3/ul Normal 0.00-0.03 [facility] Comment on above: Performed By: #### C BC #### [facility] [address] [place] [address] Dr. Abdoulaye Kincaid IG % 0.2 % Normal 0.0-0.5 [facility] Comment on above: Performed By: #### C BC #### [facility] [address] [place] [address] Dr. Abdoulaye Kincaid LYMPH # 2.3 103/ul Normal 1.2-3.8 [facility] Comment on above: Performed By: #### C BC #### [facility] [address] [place] [address] Dr. Abdoulaye Kincaid Lymphocytes/100 WBC (Bld) 26.9 % Normal 20.5-60.0 [facility] Comment on above: Performed By: #### C BC #### [facility] [address] [place] [address] Dr. Abdoulaye Kincaid MANUAL DIFF REQ NO Normal [facility] Comment on above: Performed By: #### C BC #### [facility] [address] [place] [address] Dr. Abdoulaye Kincaid MCH (RBC) [Entitic mass] 28.6 pg Normal 26.7-34.0 [facility] Comment on above: Performed By: #### C BC #### [facility] [address] [place] [address] Dr. Abdoulaye Kincaid MCHC (RBC) [Mass/Vol] 32.7 g/dL Normal 29.9-35.2 [facility] Comment on above: Performed By: #### C BC #### [facility] [address] [place] [address] Dr. Adboulaye Kincaid MCV (RBC) [Entitic vol] 87.4 fL Normal 81.0-99.0 [facility] Comment on above: Performed By: #### C BC #### [facility] [address] [place] [address] Dr. Abdoulaye Kincaid MONO # 0.5 103/ul Normal 0.3-0.8 [facility] Comment on above: Performed By: #### C BC #### [facility] [address] [place] [address] Dr. Abdoulaye Kincaid Monocytes/100 WBC (Bld) 5.2 % Normal 1.7-12.0 [facility] Comment on above: Performed By: #### C BC #### [facility] [address] [place] [address] Dr. Abdoulaye Kincaid NEUT # 5.6 103/ul Normal 1.4-6.5 [facility] Comment on above: Performed By: #### C BC #### [facility] [address] [place] [address] Dr. Abdoulaye Kincaid Neutrophils/100 WBC (Bld) 64.8 % Normal 43.0-75.0 [facility] Comment on above: Performed By: #### C BC #### [facility] [address] [place] [address] Dr. Abdoulaye Kincaid Platelet mean volume (Bld) [Entitic vol] 9.3 fL Critically low 9.5-13.5 [facility] Comment on above: Performed By: #### C BC #### [facility] [address] [address] [address] Abdoulaye Kincaid PLT 371 103/ul Normal 150-450 [facility] Comment on above: Performed By: #### C BC #### [facility] [address] [place] [address] Dr. Abdoulaye Kincaid RBC 4.76 106/ul Normal 4.20-5.40 [facility] Comment on above: Performed By: #### C BC #### [facility] [address] [address] [address] Abdoulaye Kincaid WBC 8.6 103/ul Normal 4.0-11.0 [facility] Comment on above: Performed By: #### C BC #### [facility] [address] [place] [address] Dr. Abdoulaye Kincaid FREE T3on 02-21-2022 FREE T3 2.87 pg/mlL Normal 2.18-3.98 [facility] Comment on above: Performed By: #### A 1C #### [facility] [address] [place] [address] Dr. Abdoulaye Kincaid GLYCOHEMOGLOBIN A1Con 2021 ADA RECOMMENDATION SEE BELOW Normal [facility] Comment on above: Result Comment: ADA RECOMMENDED LIMIT 4.0 - 6.0 ADA THERAPEUTIC TARGET < 7.0 ACTION SUGGESTED > 7.0 Performed By: #### A 1C #### [facility] [address] [place] [address] Dr. Abdoulaye Kincaid Glucose [Mass/Vol] 111 mg/dL Normal [facility] Comment on above: Performed By: #### A 1C #### [facility] [address] [place] [address] Dr. Abdoulaye Kincaid HbA1c (Bld) [Mass fraction] 5.5 % Normal 4.5-6.2 [facility] Comment on above: Performed By: #### A 1C #### [facility] [address] [place] [address] Dr. Abdoulaye Kincaid LIPID PROFILEon 02-21-2022 CHOL-HDL RATIO NORM SEE BELOW Normal [facility] Comment on above: Result Comment: 3.3 - 4.4 LOW RISK 4.4 - 7.1 AVERAGE RISK 7.1 - 11.0 MODERATE RISK >11.0 HIGH RISK Performed By: #### A 1C #### [facility] [address] [place] [address] Dr. Abdoulaye Kincaid Cholesterol [Mass/Vol] 226 mg/dL Critically high <=200 [facility] Comment on above: Performed By: #### A 1C #### [facility] [address] [address] [address] Abdoulaye Kincaid Cholesterol in HDL [Mass/Vol] 53 mg/dL Normal 40-60 [facility] Comment on above: Performed By: #### A 1C #### [facility] [address] [place] [address] Dr. Abdoulaye Kincaid Cholesterol in LDL [Mass/Vol] 141.6 mg/dL Normal [facility] Comment on above: Performed By: #### A 1C #### [facility] [address] [place] [address] Dr. Abdoulaye Kincaid Cholesterol.total/Cho lesterol in HDL [Mass ratio] 4.3 {ratio} Normal [facility] Comment on above: Performed By: #### A 1C #### [facility] [address] [place] [address] Dr. Abdoulaye Kincaid HDL NORMAL > or = 60 mg/dl - LO W CARDIOVASCULAR RISK <40 mg/dl - HIGH CARDIOVASCULAR RISK Normal [facility] Comment on above: Performed By: #### A 1C #### [facility] [address] [place] [address] Dr. Abdoulaye Kincaid LDL CALC NORMAL SEE BELOW Normal [facility] Comment on above: Result Comment: <100 mg/dl OPTIMAL 100 - 129 mg/dl NEAR OR ABOVE OPTIMAL 130 - 159 mg/dl BORDERLINE HIGH 160 - 189 mg/dl HIGH >190 mg/dl VERY HIGH Performed By: #### A 1C #### [facility] [address] [place] [address] Dr. Abdoulaye Kincaid Triglyceride [Mass/Vol] 157 mg/dL Critically high <=150 [facility] Comment on above: Performed By: #### A 1C #### [facility] [address] [place] [address] Dr. Abdoulaye Kincaid VLDL CALC 31.4 mg/dL Normal [facility] Comment on above: Performed By: #### A 1C #### [facility] [address] [place] [address] Dr. Abdoulaye Kincaid PROF 14(COMP METB)on 02-21- 022 Albumin [Mass/Vol] 4.1 g/dL Normal 3.4-5.0 [facility] Comment on above: Performed By: #### A 1C #### [facility] [address] [place] [address] Dr. Abdoulaye Kincaid Albumin/Globulin [Mass ratio] 1.1 {ratio} Normal [facility] Comment on above: Performed By: #### A 1C #### [facility] [address] [place] [address] Dr. Abdoulaye Kincaid ALP [Catalytic activity/Vol] 83 U/L Normal 46-116 [facility] Comment on above: Performed By: #### A 1C #### [facility] [address] [place] [address] Dr. Abdoulaye Kincaid ALT [Catalytic activity/Vol] 30 U/L Normal 14-59 [facility] Comment on above: Performed By: #### A 1C #### [facility] [address] [place] [address] Dr. Abdoulaye Kincaid Anion gap [Moles/Vol] 11.0 mmol/L Normal [facility] Comment on above: Performed By: #### A 1C #### [facility] [address] [place] [address] Dr. Abdoulaye Kincaid AST [Catalytic activity/Vol] 16 U/L Normal 15-37 [facility] Comment on above: Performed By: #### A 1C #### [facility] [address] [place] [address] Dr. Abdoulaye Kincaid Bilirubin [Mass/Vol] 0.6 mg/dL Normal 0.2-1.0 [facility] Comment on above: Performed By: #### A 1C #### [facility] [address] [place] [address] Dr. Abdoulaye Kincaid Calcium [Mass/Vol] 8.9 mg/dL Normal 8.5-10.1 [facility] Comment on above: Performed By: #### A 1C #### [facility] [address] [place] [address] Dr. Abdoulaye Kincaid Chloride [Moles/Vol] 106 mmol/L Normal 98-107 [facility] Comment on above: Performed By: #### A 1C #### [facility] [address] [place] [address] Dr. Abdoulaye Kincaid CO2 [Moles/Vol] 28.0 mmol/L Normal 21.0-32.0 [facility] Comment on above: Performed By: #### A 1C #### [facility] [address] [place] [address] Dr. Abdoulaye Kincaid Creatinine [Mass/Vol] 0.72 mg/dL Normal 0.55-1.02 [facility] Comment on above: Performed By: #### A 1C #### [facility] [address] [place] [address] Dr. Abdoulaye Kincaid EGFR-AF CHILEAN >60 Normal >=60 [facility] Comment on above: Performed By: #### A 1C #### [facility] [address] [place] [address] Dr. Abdoulaye Kincaid EGFR-NON AF CHILEAN >60 Normal >=60 [facility] Comment on above: Performed By: #### A 1C #### [facility] [address] [place] [address] Dr. Abdoulaye Kincaid Globulin (S) [Mass/Vol] 3.7 g/dL Normal [facility] Comment on above: Performed By: #### A 1C #### [facility] [address] [place] [address] Dr. Abdoulaye Kincaid Glucose [Mass/Vol] 97 mg/dL Normal 74-106 [facility] Comment on above: Performed By: #### A 1C #### [facility] [address] [place] [address] Dr. Abdoulaye Kincaid Potassium [Moles/Vol] 4.0 mmol/L Normal 3.5-5.1 [facility] Comment on above: Performed By: #### A 1C #### [facility] [address] [address] [address] Abdoulaye Kincaid Protein [Mass/Vol] 7.8 g/dL Normal 6.4-8.2 [facility] Comment on above: Performed By: #### A 1C #### [facility] [address] [address] [address] Abdoulaye Kincaid Sodium [Moles/Vol] 141 mmol/L Normal 136-145 [facility] Comment on above: Performed By: #### A 1C #### [facility] [address] [address] [address] Abdoulaye Kincaid Urea nitrogen [Mass/Vol] 10.0 mg/dL Normal 7.0-18.0 [facility] Comment on above: Performed By: #### A 1C #### [facility] [address] [place] [address] Dr. Abdoulaye Kincaid Urea nitrogen/Creatinine [Mass ratio] 13.9 mg/mg Normal [facility] Comment on above: Performed By: #### A 1C #### [facility] [address] [address] [address] Abdoulaye Kincaid T4on 02-21-2022 T4 [Mass/Vol] 10.90 ug/dL Normal 4.80-13.90 [facility] Comment on above: Performed By: #### A 1C #### [facility] [address] [address] [address] Abdoulaye Kincaid TSHon 02-21-2022 TSH 0.662 uIU/mL Normal 0.358-3.740 [facility] Comment on above: Performed By: #### A 1C #### [facility] [address] [address] [address] Abdoulaye Kincaid VITAMIN D 25 OHon 02-21-2022 VIT D 25-OH 19.8 ng/mL Normal [facility] Comment on above: Performed By: #### A 1C #### [facility] [address] [address] [address] Abdoulaye Kincaid VIT D RANGES SEE BELOW Normal [facility] Comment on above: Result Comment: <20 ng/mL Vit D deficient 20 - <30 ng/mL Vit D insufficient 30 - 100 ng/mL Vit D sufficient >100 ng/mL Potential Toxicity Performed By: #### A 1C #### [facility] [id number] Abdoulaye Kincaid Encounters Encounter Date Encounter Type Care Provider Facility Start: 10-03-2023 End: 10-03-2023 ambulatory JUNIOR BLACKMAN Not Available Start: 08-04-2022 Encounter for prepro cedural laboratory examination DR JUNIOR BLACKMAN . [facility] Start: 08-04-2022 End: 08-05-[address] JUNIOR BLACKMAN . Facility[facility] Start: 08-01-2022 End: 08-02-[address] JUNIOR BLACKMAN . Facility[facility] Start: 08-01-2022 End: 08-02-2022 Encounter for preprocedural laboratory examination DR JUNIOR BLACKMAN . Facility[facility] Start: 06-23-2022 End: 06-23-[address] JUNIOR BLACKMAN . Facility[facility] Start: 06-16-2022 Encounter for prepro cedural cardiovascular examination DR JUNIOR BLACKMAN . [facility] Start: 06-14-2022 End: 06-15-[address] JUNIOR BLACKMAN . Facility[facility] Start: 06-14-2022 End: 06-15-2022 Encounter for preprocedural cardiovascular examination DR JUNIOR BLACKMAN . Facility:[facility] Start: 05-04-2022 End: 05-05-[address] ALEX FRAGOSO Facility:[facility] Start: 04-03-2022 End: 04-03-[address] JUNIOR BLACKMAN . Facility:[facility] Start: 02-24-2022 Encounter for genera l adult medical examination without abnormal findings DR MARILOU CERVANTES . [facility] Start: 02-21-2022 End: 02-22-[address] MARILOU CERVANTES . Facility:[facility] Start: 02-21-2022 End: 02-22-2022 Encounter for general adult medical examination without abnormal findings DR MARILOU CERVANTES . Facility:[facility] Payers Date Payer Category Payer Unknown [id number] 2.16.84 [id number] 1975 Unknown [id number] 2.16.84 [id number] 1975 Unknown [id number] 2.16.84 [id number] 1975 Unknown [id number] 2.16.84 [id number] 1975 Unknown [id number] 2.16.84 [id number] 1975 Unknown [id number] 2.16.84 [id number] 1976 Unknown [id number] 2.16.84 [id number] 1975 Unknown [id number] 2.16.84 [id number] 1975 Unknown [id number] 2.16.84 [id number] 1959 Unknown [id number] Clinical Note 08-04-2022 Note Date & Type Note Facility 08-04-2022 Note OPERATIVE NOTE OPERATION DATE: 08/04/2022 PROCEDURE: Robotic assisted laparoscopic hysterectomy with cystoscopy. PREOPERATIVE DIAGNOSIS: Menorrhagia, dysmenorrhea, pelvis pain, dyspareunia. POSTOPERATIVE DIAGNOSIS: Menorrhagia, dysmenorrhea, pelvis pain, dyspareunia, slightly enlarged uterus. ANESTHESIA: General. SURGEON: Junior Blackman D.O. ISOTOPE HYDROLOGIST: ALYCIA Myrick URINE OUTPUT: Yellow and clear. [...] Anesthesia first. Patient tolerated procedure well [facility] Clinical Note 06-23-2022 Note Date & Type Note Facility 06-23-2022 Note OPERATIVE NOTE OPERATION DATE: 06/23/2022 PROCEDURE: Diagnostic laparoscopy, D AND C hysteroscopy. PREOPERATIVE DIAGNOSIS: Menorrhagia, pelvic pain, dysmenorrhea, dyspareunia. POSTOPERATIVE DIAGNOSIS: Menorrhagia, pelvic pain, dysmenorrhea, dyspareunia, including significant adhesions of the uterus to the anterior abdominal wall. ANESTHESIA: General. SURGEON: Junior Blackman D.O. ISOTOPE HYDROLOGIST: ALYCIA Myrick URINE OUTPUT: Yellow and clear. [...] the Recovery Room in stable condition. [facility] Summary Purpose Family History No Family History Records FoundNo Family History Records Found Advance Directives No Advanced Directives Records FoundNo Advanced Directives Records Found Additional Source Comments INFORMATION SOURCE (unrecogn ized section and content) DATE CREATED AUTHOR 10/13/[address] [facility] pital DATE CREATED AUTHOR AUTHOR'S ORGANIZ ATION 10/04/2023 [facility] FOR RECORDS PERTAINING TO PATIENTS WHO ARE [...] BE BASED ON THE PRIMARY CLINICAL RECORDS. [facility] [employer] [facility]. provides no warranty or guarantee of the accuracy or completeness of information in this document.
== END 2024-04-09 08:59 | disposition home or self-care (01) ==
LOC: MAMMO 08:58
PROVIDERS: PCP Family Medicine; Visit Provider Obstetrics & Gynecology
DX: Z12.31 Encounter for screening mammogram for malignant neoplasm of breast (principal); Z80.3 Family history of malignant neoplasm of breast; Z80.1 Family history of malignant neoplasm of trachea, bronchus and lung
CPT/HCPCS: 77063; 77067

== ENCOUNTER 2024-10-06 15:14 | Outpatient (REF) | payer BC, SELFPAY ==
--- OUTSIDE RECORDS SUMMARY | 2024-02-04 09:05 | XMS_ITS ---
Author Organization [facility] in [place] Address [address] [place] [address] Care Team Providers Care Oven Baker Name Role Phone Baudilio Hale Primary Care Provider REASON FOR VISIT Adipex Encounters Encounter Location Date Provider Diagnosis [facility] [address] [place] [address] 02/04/2024 Baudilio Hale Plan Of Treatment No Information Progress Notes * WHIT MelisaDOB: 7 (48 yo F)Acc No.[id number]:02/04/2024 Patient: Melisa MALDONADO :1975 A ge:48 Y S ex:Female Address:[address] [address], [place] [address] * true * Date: Generated for Niesha johnson/Pastor/eTransmitting on: 0 10/06/2024 03:19 PM EDT
--- OUTSIDE RECORDS SUMMARY | 2024-02-18 10:25 | XMS_ITS ---
Author Organization [facility] in [place] Address [address] [place] [address] Care Team Providers Care Manager Cardiovascular Name Role Phone Baudilio Hale Primary Care Provider [phone] REASON FOR VISIT ADD-No answer x3- will address when pt calls back Medications Medication SIG (Take, Route, Fr equency, Duration) Notes Start Date End Date Status Strattera 40 MG 1 capsule in the mor eddie Orally Once a day for 30 days 02/19/2024 Active Encounters Encounter Location Date Provider Diagnosis [facility] [address] [place] [address] 02/18/2024 Baudilio Hale Plan Of Treatment Medication Medication Name Sig Start Date Stop Date Notes Strattera 40 MG 1 capsule in the mor eddie Orally Once a day for 30 days 02/19/2024 Progress Notes * WHIT CallyDOB: 7 (48 yo F)Acc No.[id number]:02/18/2024 Patient: Cally MALDONADO :1975 A ge:48 Y S ex:Female Address:[address] [facility] [address], [place] [address] * Refills Start Strattera Capsule, 40 MG, Orally, 30, 1 capsule in the morning, Once a day, 30 days, Refills=0 * true * Date: Generated for Printi ng/Faxing/eTransmitting on: 0 10/06/2024 03:20 PM EDT
--- OUTSIDE RECORDS SUMMARY | 2024-04-09 15:19 | XMS_ITS ---
Author Organization [facility] in [place] Address [address] [place] [address] Care Team Providers Care Combine Driver Name Role Phone Baudilio Hale Primary Care Provider REASON FOR VISIT review mammogram Encounters Encounter Location Date Provider Diagnosis [facility] [address] [place] [address] 04/09/2024 Baudilio Hale Plan Of Treatment No Information Progress Notes * WHIT CallyDOB: 7 (48 yo F)Acc No.[id number]:04/09/2024 Patient: Cally MALDONADO :1975 A ge:48 Y S ex:Female Address:[address] [place] [address], [place] [address] * true * Date: Generated for Niesha johnson/Pastor/eTransmitting on: 0 10/06/2024 03:19 PM EDT
--- OUTSIDE RECORDS SUMMARY | 2024-10-06 10:00 | XMS_ITS | Encounter Summary ---
Author Organization [facility] Address [address] [place] [address] Care Team Providers Care Aviation Tactical Readiness Officer Name Role Phone Ramin Hale MD Primary Care Provider [phone] Reason for Visit * Reason Comments Well Women Visit Encounter Details Date Type Department Care Team (Late st Contact Info) Description 10/06/2024 10:00 AM EDT Office Visit [facility] [address] [place] [address] Gabriel Blackman, DO [address] [place], [facility]11 Well woman exam with routine gynecological exam; Encounter for screening mammogram for malignant neoplasm of breast; Muscle pain; Brain fog; Anxiety, generalized (CMS/HCC); Bloating symptom; Hormone imbalance Social History Tobacco Use Types Packs/Day Years Used Date Smoking Tobacco: Former Cigarettes Smokeless Tobacco: Never Alcohol Use Standard Drinks/Week Comments Never 0 (1 standard drink = 0.6 oz pur e alcohol) Comments No Sex and Gender Information Value Date Recorded Sex Assigned at Female 09/25/2022 8:21 AM EDT Legal Sex Female 11:47 PM EDT Gender Identity Not on file Sexual Orientation Don't know 09/25/2022 8: 21 AM EDT documented as of this encounter Last Filed Vital Signs Vital Sign Reading Time Taken Comments Blood Pressure 118/84 10/06/2024 10:32 AM EDT Pulse - - Temperature - - Respiratory Rate - - Oxygen Saturation - - Inhaled Oxygen Concentration - - Weight 89.2 kg (196 lb 12 oz) 10/06/2024 10:32 A M EDT Height - - Body Mass Index 32.74 10/03/2023 10:36 AM EDT documented in this encounter Progress Notes * Amalia Polanco LPN - 10/06/2024 10:00 AM EDT Reason for Appointment: Patient ID: Cally Gil is a 48 y.o. female who presents for Well Women Visit Patient presents today for Annual Exam. MEDICATIONS Current Outpatient Medications Medication Instructions cholecalciferol (VITAMIN D-3) 1,000 Units, Oral, Daily diclofenac (VOLTAREN) 75 mg, Oral, 2 times daily, Do not crush, chew, or split. ferrous sulfate 325 mg, Oral, Daily with breakfast magnesium oxide (MAG-OX) 250 mg, Oral, Daily omeprazole (PRILOSEC) 40 mg, Oral, Daily before breakfast, Do not crush or chew. phentermine (ADIPEX-P) 37.5 mg, Oral, Daily before breakfast sertraline (ZOLOFT) 50 mg, Oral, Daily simvastatin (ZOCOR) 20 mg, Oral, Every 24 hours ALLERGIES Allergies Allergen Reactions 2nd Skin Quick Heal Unknown PROBLEMS Active Ambulatory Problems Diagnosis Date Noted Chemical dermatitis 09/21/2022 Dysmenorrhea 09/21/2022 Excessive and frequent menstruation 09/21/2022 Obesity 09/21/2022 Pelvic pain 09/21/2022 Vaginal lump 09/21/2022 Resolved Ambulatory Problems Diagnosis Date Noted No Resolved Ambulatory Problems Past Medical History: Diagnosis Date Encounter for gynecological examination (general) (routine) without abnormal findings Obesity (BMI 30-39.9) HISTORY PAST MEDICAL HISTORY SOCIAL HISTORY Past Medical History: Diagnosis Date Chemical dermatitis Encounter for gynecological examination (general) (routine) without abnormal findings Obesity (BMI 30-39.9) Vaginal lump Social History Tobacco Use Smoking status: Former Types: Cigarettes Smokeless tobacco: Never Substance Use Topics Alcohol use: Never Drug use: Never FAMILY HISTORY Family History Problem Relation Name Age of Onset Diabetes Mother Hypertension Mother Heart disease Father Heart disease Maternal Grandmother Cancer Maternal Grandmother Heart disease Maternal Grandfather Heart disease Paternal Grandmother Cancer Paternal Grandmother Heart disease Paternal Grandfather Autism Son Ryan Pascual Jakob SURGICAL HISTORY Past Surgical History: Procedure Laterality Date SECTION, CLASSIC C-Sections x 3 D&C FIRST TRIMESTER / TX INCOMPLETE / MISSED / SEPTIC / INDUCED 12/2017 D&C LAPAROSCOPIC HYSTERECTOMY 08/04/2022 HI HYSTEROSCOPY BX ENDOMETRIUM&/POLYPC W/WO D&C 06/23/2022 diagnostic D&C hysteroscopy TUBAL LIGATION REVIEW OF SYSTEMS Review of Systems: Review of Systems Constitutional: Negative. HENT: Negative. Eyes: Negative. Respiratory: Negative. Cardiovascular: Negative. Gastrointestinal: Negative. Genitourinary: Negative. Musculoskeletal: Negative. Skin: Negative. Neurological: Negative. All other systems reviewed and are negative. Hematological: Negative. Endocrine: Negative. Allergic/Immunologic: Negative. OBJECTIVE Objective: Physical Exam Constitutional: Appearance: Normal appearance. She is well-developed. Genitourinary: Vulva normal. Vaginal cuff intact. Cervix is absent. Uterus is absent. Breasts: Breasts are soft. Right: Normal. Left: Normal. Cardiovascular: Rate and Rhythm: Normal rate and regular rhythm. Abdominal: General: Bowel sounds are normal. There is no distension. Palpations: Abdomen is soft. Tenderness: There is no abdominal tenderness. There is no guarding or rebound. Musculoskeletal: General: No swelling. Normal range of motion. Right lower leg: No edema. Left lower leg: No edema. Neurological: Mental Status: She is alert and oriented to person, place, and time. Skin: General: Skin is warm and dry. Psychiatric: Mood and Affect: Mood normal. Behavior: Behavior normal. Vitals and nursing note reviewed. Exam conducted with a cocoa press operator present. Vitals: Estimated body mass index is 32.74 kg/m?? as calculated from the following: Height as of 10/03/23: 5' 5 . Weight as of this encounter: 196 lb 12 oz. BP: 118/84 No LMP recorded. Patient has had a hysterectomy. ASSESSMENT & PLAN ICD-10-CM 1. Well woman exam with routine gynecological exam Z01.419 THIN PREP TIS PAP AND HR HPV DNA 2. Encounter for screening mammogram for malignant neoplasm of breast Z12.31 Bilateral screening mammogram Bilateral screening mammogram 3. Muscle pain M79.10 4. Brain fog R41.89 5. Anxiety, generalized (CMS/HCC) F41.1 6. Bloating symptom R14.0 Annual: Patient presents today for an annual exam. Patient states she is doing well and has complaints of muscle pain, brain fog, anxiety, bloating. Discussed symptoms with patient and that is most likely due to hormones. Patient voiced that she started therapy and is being checked for ADHD and not sure ifthis is a factor to some of her symptoms. Pap was obtained without difficulty and patient given mamm ogram order to have scheduled/obtained. Discussed micronized progesterone and estrogen. Discussed starting 0.5mg estrogen for 1 month and schedule telehealth and see if improvement. If no improvement or helped slightly then would discussedmicronized progesterone. Orders Placed This Encounter Procedures Bilateral screening mammogram Follow Up: Patient is to return in one year for annual unless needed otherwise. Documented by Amalia Polanco LPN on behalf of: Gabriel Blackman DO documented in this encounter Plan of Treatment Upcoming Encounters Date Type Department Care Team (Late st Contact Info) Description 11/03/2024 8:10 AM EDT [facility] Visit [facility] [address] [place] [address] Gabriel Blackman DO [address] [place], [place] [address] [address] 10/13/2025 11:00 AM EDT Office Visit [facility] [address] [place] [address] Gabriel Blackman DO [address] [place] [address] Scheduled Orders Name Type Priority Associated Diagnoses Orde r Schedule Bilateral screening mammogram Imaging Routine Encounter for screening mammogram for malignant neoplasm of breast Expected: 10/06/2024 (Approximate), Expires: 12/06/2025 THIN PREP TIS PAP AND HR HPV DNA Pathology and Cytology Routine Well woman exam with routine gynecological exam Ordered: 10/06/2024 documented as of this encounter Visit Diagnoses Diagnosis Well woman exam with routine gynecological exam Routine gynecological examination Encounter for screening mammogram for malignant neoplasm of breast Muscle pain Unspecified myalgia and myositis Brain fog Anxiety, generalized (CMS/HCC) Bloating symptom Flatulence, eructation, and gas pain Hormone imbalance documented in this encounter Care Teams Aviation Tactical Readiness Officer Relationship Specialty Start Date End Date Ramin Hale MD PCP - General Family Medicine 09/25/22 documented as of this encounter
--- OUTSIDE RECORDS SUMMARY | 2024-10-06 15:19 | XMS_ITS | Patient Health Record ---
Author Organization [facility] [place] Address [address] [place] [address] Care Team Providers Care Motors And Generators Inspector Name Role Phone Baudilio Hale Primary Care Provider Allergies Allergen (clinical drug ingredient) Drug/Non Drug Allergy documented on EMR Reaction Allergy Type Onset Date Status Adhesive hives Allergy Active Results Component Value Reference Range Notes FREE T3 Reviewed date:11/21/2023 06:57:33 PM Interpretation: Performing Lab: Notes/Report: [facility] , Free T3 2.73 2.18-3.98 pg/mL Performing Lab: see note ML - [facility] LIPID PROFILE Reviewed date:11/21/2023 06:57:33 PM Interpretation: Performing Lab: Notes/Report: [facility] , Triglycerides 84 <=150 mg/dL Cholesterol 238 <=200 mg/dL HDL Cholesterol 57 40-60 mg/dL > or =60 mg/dl - LOW CARDIOVASCULAR RISK <40 mg/dl - HIGH CARDIOVASCULAR RISK LDL Cholesterol Calculated 165.0 160-189 mg/dl HIGH 130-159 mg/dl BORDERLINE HIGH 100-129 mg/dl NEAR OR ABOVE OPTIMAL <100 mg/dl OPTIMAL >190 mg/dl VERY HIGH VLDL CHOLESTEROL 16.8 Chol HDL Ratio 4.2 >11.0 HIGH RISK 7.1 - 11.0 MODERATE RISK 4.4 - 7.1 AVERAGE RISK 3.3 - 4.4 LOW RISK Performing Lab: see note ML - [facility] T4 Reviewed date:11/21/2023 06:57:33 PM Interpretation: Performing Lab: Notes/Report: [facility] , T4 Thyroxine 9.20 4.80-13.90 ug/dL Performing Lab: see note ML - [facility] TSH Reviewed date:11/21/2023 06:57:34 PM Interpretation: Performing Lab: Notes/Report: [facility] , Thyroid Stimulating Hormone 1.241 0.358-3.740 uIU/mL Performing Lab: see note ML - [facility] MM tomosynthesis screening B I Reviewed date:04/09/2024 07:23:57 PM Interpretation: Performing Lab: Notes/Report: Source Facility: [facility] [address] [place] [address] Mammography Report Signed Patient: PALMA SHERMAN MR#: [id number] : 1975 Acct:[id number] Age/Sex: 48 / F ADM Date: 04/09/24 Loc: MAMMO Attending Dr: Gabriel Blackman D.O. Ordering Physician: Gabriel Blackman D.O. Results: Date of Service: 04/09/24 Follow Up: Procedure(s): MM tomosynthesis screening BI Accession Number(s): [id number] cc: Gabriel Blackman D.O.; Ramin Hale M.D. Patient Name: PALMA SHERMAN MR#: [id number] : 1975 Exam Date: 04/09/2024 Ordering Doctor: DR Gabriel Blackman . RADIOLOGY REPORT PROCEDURE: MM TOMOSYNTHESIS SCREENING BI COMPARISON: MG MAMM SCREEN 3D BRANDY CAD, 05/04/2022. INDICATIONS: Screening Calculator Name NCI Breast Cancer Risk Assessment Tool 5 Year Breast Cancer Risk 0.80% Lifetime Breast Cancer Risk 8.40% Personal Breast Cancer No Personal Ovarian Cancer No Treatments None Family Cancers Grandmother-paternal with breast cancer at age 38; Grandmother-maternal with lung cancer at age 62; Grandfather-maternal with lung cancer at age 68. LOCATION: [facility] BREAST COMPOSITION: There are scattered areas of fibroglandular density. FINDINGS: DIAGNOSTIC CATEGORY 2--BENIGN FINDING. NO CHANGE FROM COMPARISON. Scattered benign-appearing calcifications are present. RIGHT BREAST: No significant suspicious finding. LEFT BREAST: No significant suspicious finding. RECOMMENDATIONS: ROUTINE MAMMOGRAM AND CLINICAL EVALUATION IN 12 MONTHS. PLEASE NOTE: A NORMAL MAMMOGRAM DOES NOT EXCLUDE THE POSSIBILITY OF BREAST CANCER. A CLINICALLY SUSPICIOUS PALPABLE LUMP SHOULD BE BIOPSIED. Dictated by: Tony Reina MD on 04/09/2024 at 11:36 Approved by: Tony Reina MD on 04/09/2024 at 11:49 Dictated By: Tony Reina M.D. Signed By: 04/09/24 1150 DD/ 1149 TD/TT: Medication Care Manager: [place] [address] Mammography Report Signed Patient: KALLIE SHERMAN MR#: [id number] : 1975 Acct:[id number] Age/Sex: 48 / F ADM Date: 04/09/24 Loc: MAMMO Attending Dr: Gabriel Blackman D.O. Ordering Physician: Gabriel Blackman D.O. Results: Date of Service: 04/09/24 Follow Up: Procedure(s): MM tomosynthesis screening BI Accession Number(s): [id number] cc: Gabriel Blackman D.O. ; Ramin Hale M.D. Patient Name: PALMA SHERMAN MR#: [id number] : 1975 Exam Date: 04/09/2024 Ordering Doctor: DR Gabriel Blackman . RADIOLOGY REPORT PROCEDURE: MM TOMOSYNTHESIS SCREENING BI COMPARISON: MG MAMM SCREEN 3D BRANDY CAD, 05/04/2022. INDICATIONS: Screening Calculator Name NCI Breast Cancer Risk Assessment Tool 5 Year Breast Cancer Risk 0.80% Lifetime Breast Canc er Risk 8.40% Personal Breast Canc er No Personal Ovarian Can cer No Treatments None Family Cancers Grandmother-paternal with breast cancer at age 38; Grandmother-maternal with lung cancer at age 62; Grandfather-maternal with lung cancer at age 68. LOCATION: [facility] BREAST COMPOSITION: There are scattered areas of fibroglandular density. FINDINGS: DIAGNOSTIC CATEGORY 2--BENIGN FINDING. NO CHANGE FROM COMPARISON. Scattered benign-appearing calcifications are present. RIGHT BREAST: No significant suspicious finding. LEFT BREAST: No significant suspicious finding. RECOMMENDATIONS: ROUTINE MAMMOGRAM AN D CLINICAL EVALUATION IN 12 MONTHS. PLEASE NOTE: A RENETTA L MAMMOGRAM DOES NOT EXCLUDE THE POSSIBILITY OF BREAST CANCER. A CLINICALLY SUSPICIOUS PALPABLE LUMP SHOULD BE BIOPSIED. Dictated by: Tony Reina MD on 04/09/2024 at 11:36 Approved by: Tony Reina MD on 04/09/2024 at 11:49 Dictated By: Helder Reina M.D. Signed By: 04/09/24 1150 DD/ 1149 TD/TT: Medication Care Manager: Reason For Referral No Information Medications Medication SIG (Take, Route, Frequency, Duration) Notes Start Date End Date Status Strattera 40 MG 1 capsule in the morning Orally Once a day for 30 days 02/19/2024 Active Adipex-P 37.5 MG 1 tablet before breakfast Orally Once a day for 11/27/2023 Active Diclofenac Sodium 75 MG 1 tablet as need ed Orally Twice a day for 05/22/2023 Active Multivitamin WITH IRON Active Sertraline HCl 100 MG take 1/2 tablet by mouth once daily for 30 days Active Simvastatin 40 MG 1 tablet in the even ing Orally Once a day for 30 days 07/30/2023 Active Triamcinolone Acetonide 0.1 % 1 application Externally Twice a day for 07/16/2023 Active Social History Tobacco Use: Social History Observation Description Date Details (start date - stop date) Former Smoker 05/07/1989 - 05/07/1997 Tobacco Use/Smoking Question Answer Notes Patient is a former smoker When did you start smoking? 05/07/1989 When did you stop smoking? 05/07/1997 How long has it been since you last smoked? 5-10 years Alcohol Screen (Audit-C) Question Answer Notes Did you have a drink contain ing alcohol in the past year? Yes How often did you have 6 or more drinks on one occasion in the past year? Never (0 point) How many drinks did you have on a typical day when you were drinking in the past year? 1 or 2 drinks (0 point) How often did you have a dri nk containing alcohol in the past year? Less than monthly (1 point) Points 1 Interpretation Negative Problems Problem Type SNOMED Code ICD Code Onset Dates Problem Status W/U Status Risk Notes Problem [id number] Hypothyroidism, unspecified (E03.9) Active confirmed Problem Hyperlipidemia (50218599) Hyperlipidemia (E78.5) Active confirmed Problem Anxiety (78384163) Anxiety (F41.9) Active confirmed Problem Depression (765863426) Depression (F32.9) Active confirmed Problem Insomnia (007845061) Insomnia (G47.00) Active confirmed Problem Left shoulder pain (0956148989) Left shoulder pain (M25.512) Active confirmed Problem Contact dermatitis (74337587) Contact dermatitis (L25.9) Active confirmed Problem Herpes zoster (5746324) Herpes zoster (B02.9) Active confirmed Vital Signs Blood pressure diastolic 96 mm Hg 11/27/2023 Height 65 in 11/27/2023 Blood pressure systolic 146 mm Hg 11/27/2023 Weight 173.8 lbs 11/27/2023 BMI 28.92 kg/m2 11/27/2023 Encounters Encounter Location Date Provider Diagnosis [facility] [address] [place] [address] 11/21/2023 Baudilio Hale Hyperlipidemia E78.[address] [address] [facility] [address] [place] [address] 02/18/2024 Baudilio [facility] [address] [place] [address] 04/09/2024 Baudilio [facility] [address] [place] [address] 11/27/2023 Baudilio Hale Hypothyroidism, unspecified E03.9 ; Depression F32.9 and Insomnia G47.00 Assessments Encounter Date Diagnosis (ICD Code) Assessment Notes Treatment Notes Treatment Clinical Notes Section Notes 11/27/2023 Hypothyroidism, unspecified (ICD-10 - E03.9) 11/27/2023 Depression (ICD-10 - F32.9) 11/21/2023 Hyperlipidemia (ICD-10 - E78.5) 11/27/2023 Insomnia (ICD-10 - G47.00) Plan Of Treatment Pending Test Test Name Order Date CMP (COMPLETE METABOLIC PANEL) 4 HEMOGLOBIN A1C (GLYCO) 05/22/2023 IRON, TOTAL 05/22/2023 LIPID PANEL (CHOL/TRIG/HDL/LDL) 01/16/20 24 CBC WITH DIFF 05/22/2023 T3 FREE, T4 FREE and TSH 06/13/2023 Insulin Level 05/22/2023 STOOL OCCULT BLOOD 05/22/2023 THYROID PANEL (T4/TSH/FREE T3) THYROID PANEL (T4/TSH/FREE T3) Lipid Panel 11/21/2023 Lipid Panel 07/29/2023 Insurance Providers Payer Name Payer Address Payer Phone Subscriber Number Group Number Insured Name Patient Relationship to Insured Coverage Start Date Coverage End Date [employer] ACCESS PPO PLUS LOCAL PLAN [address] [place] [phone] [id number] Palma Sherman Self - patient is the insured Medical (General) History Medical History History ICD Code Fibroid, uterine D25.9 Hypercholesteremia E78.00 Migraine with aura G43.109 Palpitations R00.2 Surgical History Surgery Date(Month/Year) x3 Salpingectomy, [place] Hysterectomy D&C
--- OUTSIDE RECORDS SUMMARY | 2024-10-06 15:19 | XMS_ITS | Clinical Summary ---
Author Organization [employer] tem Address [id number] [place] [address] Care Team Providers Care Microbiology Lab Technician Name Role Phone Ramin Hale MD Primary Care Provider [phone] Allergies No known active allergies Medications folic acid 20 mg capsule Take 1 capsule by mouth daily. Active vit 91/iron/folic/d barragan ( + DHA ORAL) Take 1 tablet by mouth daily. Active TRUE METRIX GLUCOSE TEST STRIP strip Testing fbs and 1 hour pp 0 02/28/2019 Active TRUE METRIX GLUCOSE METER misc 4 (four) times a day. fbs and 1 hour pp 0 01/14/2019 Active polyethylene glycol (GLYCOLAX) 17 gram/dose powder Take 17 g by mouth daily. 507 g 1 03/19/2019 Active omeprazole (PriLOSEC) 40 mg capsule Take 1 capsule (40 mg total) by mouth daily. 30 capsule 1 03/19/2019 Active ferrous sulfate 325 (65 FE) mg tablet Take 325 mg by mouth daily with breakfast. Active Active Problems Problem Noted Date Diagnosed Date Antepartum multigravida of advanced maternal age 1103/18/2019 Overview (03/18/2019): Transfer of care at 36 weeks from Christin Moraes On prophylactic aspirin cfDNA Low Risk Previous delivery, antepartum 9 Overview (03/18/2019): Reports window at time of associated with TOLAC MFM Consult 11/26/18 If she has no symptoms of labor and stable, I think that we can consider on her case repeated her at 37-38 weeks, consider corticosteroids at 36 and half weeks gestation. However, if the patient presents with abdominal pain, contractions before, consider evaluation for possible uterine dehiscence. Gastroesophageal reflux disease with esophagitis 03/18/2019 Diet controlled gestational diabetes mellitus (GDM) in third trimester 03/18/2019 Immunizations Immunization Administration Dates Next Due Influenza, Injectable, quadrivalent (PF) 019 Tdap 01/02/2019 Family History Medical History Relation Name Comments Clotting disorder Father hemochroma tosis (patient tested and negative) Heart disease Father late 40s/early 50s Cancer Maternal Grandmother LUNG Diabetes Mother Hypertension Mother Cancer Paternal Grandmother BREAST Heart failure Paternal Uncle Autism Son Heart disease Son Relation Name Status Comments Father Maternal Grandmother Mother Paternal Grandmother Paternal Uncle Son Social History Tobacco Use Types Packs/Day Years Used Date Smoking Tobacco: Former Smokeless Tobacco: Never Comments:quit 2015 Alcohol Use Standard Drinks/Week Comments Never 0 (1 standard drink = 0.6 oz pur e alcohol) AUDIT-C Answer Date Recorded Frequency of Alcohol Consumption Never 11/27/2018 Average Number of Drinks Not on file 019 Frequency of Binge Drinking Not on file 11/05 [place] Depression Scale Answer Date Recorded [place] Depression Scale Total 9 04/05/2019 The thought of harming myself has occurred to me . Never 04/05/2019 Childcare Answer Date Recorded Childcare Unknown 10/16/2018 Employment Answer Date Recorded Employment Unknown 10/16/2018 Purpose - Life Answer Date Recorded Purpose and direction in life Unknown Comments No Sex and Gender Information Value Date Recorded Sex Assigned at Female 04/28/2021 4:54 PM EST Legal Sex Female 11:39 AM EDT Gender Identity Female 04/28/2021 4:54 PM EST Sexual Orientation Straight 04/28/2021 4: 54 PM EST Last Filed Vital Signs Vital Sign Reading Time Taken Comments Blood Pressure 132/82 04/04/2019 9:03 AM EST Pulse 90 04/04/2019 9:03 AM EST Temperature 36.4 C (97.5 F) 04/04/2019 9:03 AM EST Respiratory Rate 18 04/04/2019 9:03 AM EST Oxygen Saturation 96% 04/01/2019 8:10 PM EST Inhaled Oxygen Concentration - - Weight 106.6 kg (235 lb) 04/01/2019 8:48 AM EST Height 165.1 cm (5' 5 ) 04/01/2019 8:48 AM EST Body Mass Index 39.11 04/01/2019 8:48 AM EST Plan of Treatment Health Maintenance Due Date Last Done Comments Tobacco Screening 1988 Adult BMI Screening 1994 Depression Screening 04/05/2020 04/05/2019 Pap Smear 10/03/2021 10/03/2018 Influenza Vaccine 01/05/2025 01/02/2019 DTaP,Tdap and Td Vaccines (2 - Td or Tdap) 01/02/2029 01/02/2019 Medical Devices Not on file Procedures Procedure Name Priority Date/Time Associated Diagnosis Comments PAP SMEAR Routine 10/03/2018 from Last 3 Months or Most Recently Relevant to Health Maintenance Results * PAP SMEAR (10/03/2018) Pap smear negative MANUALL Y TRANSCRIBED RESULTS us Eligio Lees MD HEALTH MAINTENANCE Final Result MANUALLY TRANSCRIBED RESULTS from Last 3 Months or Most Recently Relevant to Health Maintenance Insurance ANTH Advance Directives * Full Code (Latest Code Status on File) Date Activated Date Inactivated Comments 04/01/2019 8:15 AM 04/04/2019 6:16 PM Care Teams Microbiology Lab Technician Relationship Specialty Start Date End Date Ramin Hale MD PCP - General Family Medicine 11/26/18
--- OUTSIDE RECORDS SUMMARY | 2024-10-06 15:20 | XMS_ITS | Clinical Summary ---
Author Organization [facility] Address [address] [place] [address] [place] [address] Care Team Providers Care Roll Skinner Name Role Phone Ramin Hale MD Primary Care Provider [phone] Allergies Active Allergy Reactions Criticality Noted Date Comments 2nd Skin Quick Heal Unknown 09/25/2022 Medications simvastatin (Zocor) 10 MG tablet Take 20 mg by mouth 1 (one) time each day at the same time Active ferrous sulfate 325 (65 Fe) MG tablet Take 325 mg by mouth in the morning. Take with meals. Active omeprazole (PriLOSEC) [address] capsule Take 40 mg by mouth in the morning. Take before meals. Do not crush or chew. . Active magnesium oxide (Mag-Ox) 400 mg tablet Take 250 mg by mouth in the morning. Active cholecalciferol (Vitamin D-3) 25 MCG (1000 UT) capsule Take 1,000 Units by mouth in the morning. Active phentermine (Adipex-P) 37.5 MG tablet Take 37.5 mg by mouth in the morning. Take before meals. 06/21/2023 Active diclofenac (Voltaren) 75 MG EC tablet Take 75 mg by mouth in the morning and 75 mg before bedtime. Do not crush, chew, or split.. Active sertraline (Zoloft) 50 MG tablet Take 50 mg by mouth Daily Active estradiol (Estrace) 0.5 MG tabletIndication s:Muscle pain,Brain fog,Anxiety, generalized (CMS/HCC),Bloati ng symptom,Hormone imbalance Take 1 tablet (0.5 mg) by mouth Daily Take 1 tablet by mouth for 30 days 30 tablet 1 10/06/2024 11/06/19 25 Active Active Problems Problem Noted Date Diagnosed Date Chemical dermatitis 09/21/2022 Dysmenorrhea 09/21/2022 Excessive and frequent menstruation 09/21/2022 Obesity 09/21/2022 Pelvic pain 09/21/2022 Vaginal lump 09/21/2022 Encounters Date Type Department Care Team Description 10/06/2024 10:00 AM EDT Office Visit [facility] [address] [place] [address] Gabriel Blackman DO Well woman exam with routine gynecological exam; Encounter for screening mammogram for malignant neoplasm of breast; Muscle pain; Brain fog; Anxiety, generalized (CMS/HCC); Bloating symptom; Hormone imbalance 10/06/2024 Bamboo flowsheet [facility] [address] [place] [address] Gabriel Blackman DO from Last 3 Months Family History Medical History Relation Name Comments Heart disease Father Heart disease Maternal Grandfather Cancer Maternal Grandmother Heart disease Maternal Grandmother Diabetes Mother Hypertension Mother Heart disease Paternal Grandfather Cancer Paternal Grandmother Heart disease Paternal Grandmother Autism Son Ryan Pascual Jakob Relation Name Status Comments Daughter Casiano Father Maternal Grandfather Maternal Grandmother Mother Paternal Grandfather Paternal Grandmother Son Ryan Pascual Jakob Son-Au tism Positive Family history of infertility Social History Tobacco Use Types Packs/Day Years Used Date Smoking Tobacco: Former Cigarettes Smokeless Tobacco: Never Tobacco Cessation:Counseling Given: Yes Alcohol Use Standard Drinks/Week Comments Never 0 (1 standard drink = 0.6 oz pur e alcohol) Comments No Sex and Gender Information Value Date Recorded Sex Assigned at Female 09/25/2022 8:21 AM EDT Legal Sex Female 11:47 PM EDT Gender Identity Not on file Sexual Orientation Don't know 09/25/2022 8: 21 AM EDT Last Filed Vital Signs Vital Sign Reading Time Taken Comments Blood Pressure 118/84 10/06/2024 10:32 AM EDT Pulse - - Temperature - - Respiratory Rate - - Oxygen Saturation - - Inhaled Oxygen Concentration - - Weight 89.2 kg (196 lb 12 oz) 10/06/2024 10:32 A M EDT Height 165.1 cm (5' 5 ) 10/03/2023 10:36 AM EDT Body Mass Index 32.74 10/03/2023 10:36 AM EDT Plan of Treatment Upcoming Encounters Date Type Department Care Team (Late st Contact Info) Description 11/03/2024 8:10 AM EDT Office Visit [facility] OB [address] [place] [phone] Gabriel Blackman, DO [address] [place] [address] 10/13/2025 11:00 AM EDT Office Visit [facility] OB [address] [place] [phone] Gabriel Blackman, DO [address] [place] [address] Health Maintenance Due Date Last Done Comments CT Colonography 1976 Colonoscopy 1976 Colorectal Cancer Screening 1976 FIT-DNA 1976 FIT 1976 FOBT 1976 Sigmoidoscopy 1976 HPV/Cotest 2006 Influenza Vaccine (Season Ended) 2025 02/27/2022, 05/20/2021, 01/02/2019 Mammogram 04/09/2025 04/09/2024, 04/07, 04/03/2022 Cervical Cancer Screening 10/02/2026 Pap Smear 10/02/2026 10/03/2023, 04/03/2023 Procedures Procedure Name Priority Date/Time Associated Diagnosis Comments MM TOMOSYNTHESIS SCREENING BI 04/09/2024 11:49 AM EST PAP SMEAR Routine 10/03/2023 12:00 AM EDT from Last 3 Months or Most Recently Relevant to Health Maintenance Results * MM TOMOSYNTHESIS SCREENING BI (04/09/2024 11:49 AM EST) Anatomical Region Laterality Modality Other 04/09/2024 11:4 9 AM EST Narrative 04/09/2024 11:50 [place] [address] Mammography Report Signed Patient: MELISA SHERMAN MR#: [id number] : 1975 Acct:[id number] Age/Sex: 48 / F ADM Date: 04/09/24 Loc: MAMMO Attending Dr: Gabriel Blackman D.O. Ordering Physician: Gabriel Blackman D.O. Results: Date of Service: 04/09/24 Follow Up: Procedure(s): MM tomosynthesis screening BI Accession Number(s): [id number] cc: Gabriel Blackman D.O.; Ramin Hale M.D. Patient Name: MELISA SHERMAN MR#: [id number] : 1975 Exam Date: 04/09/2024 Ordering Doctor: [...] lung cancer at age 69. LOCATION: The [facility] BREAST COMPOSITION: There are scattered areas [...] Signed By: 04/09/24 1150 DD/ 1149 TD/TT: Motion Study Engineer: Procedure Note Radiology, Radiologist, - 12/04/2024 [place] [address] Mammography Report Signed Patient: MELISA SHERMANMR#: [id number] : 1975Acct:[id number] Age/Sex: 48 / FADM Date: 04/09/24 Loc: MAMMO Attending Dr: Gabriel Blackman D.O. Ordering Physician: Gabriel Blackman D.O.Results: Date of Service: 04/09/24Follow Up: Procedure(s): MM tomosynthesis screening BI Accession Number(s): [id number] cc: Gabriel Blackman D.O.; Ramin Hale M.D. Patient Name: MELISA SHERMAN MR#: [id number] : 1975 Exam Date: 04/09/2024 Ordering Doctor: [...] Grandmother-maternal with lung cancer at age 62; Grandfather-maternalwith lung cancer at age 68. LOCATION: The [facility] BREAST COMPOSITION: There are scattered areas of fibroglandulardensity. FINDINGS: DIAGNOSTIC CATEGORY 2--BENIGN FINDING. NO CHANGE FROM COMPARISON.Scattered benign-appearing calcifications are present. RIGHT BREAST: No significant suspicious finding. LEFT BREAST: No significant suspicious finding. RECOMMENDATIONS: ROUTINE MAMMOGRAM AND CLINICAL EVALUATION IN 12 MONTHS. PLEASE NOTE: A NORMAL MAMMOGRAM DOES NOT EXCLUDE THE POSSIBILITY OFBREAST CANCER. A CLINICALLY SUSPICIOUS PALPABLE LUMP SHOULD BE BIOPSIED. Dictated by: Tony Reina MD on 04/09/2024 at 11:36 Approved by: Tony Reina MD on 04/09/2024 at 11:49 Dictated By: Tony Reina M.D. Signed By:04/09/24 1150 DD/ 1149 TD/TT: Motion Study Engineer: us Gabriel Sanfordo DO [facility] Final Result * Pap Smear (10/03/2023 12:00 AM EDT) Swab Cervical swab / Unknown us [facility] Nurse LAB CYTOLOGY ORDERABLES Final Result EXTERNAL LAB from Last 3 Months or Most Recently Relevant to Health Maintenance Insurance [employer] Care Teams Roll Skinner Relationship Specialty Start Date End Date Ramin Hale MD PCP - General Family Medicine 09/25/22
--- OUTSIDE RECORDS SUMMARY | 2024-10-06 15:20 | XMS_ITS | Encounter Summary ---
Author Organization [facility] Address [address] [place] [address] [place] [address] Care Team Providers Care Resource Center Teacher Name Role Phone Ramin Hale MD Primary Care Provider [phone] Encounter Details Date Type Department Care Team (Late st Contact Info) Description 10/08/2023 Orders Only [facility] OB [address] [place] [phone] Lisa Gillespie LPN [address] [facility] [address] [place] [address] Social History Tobacco Use Types Packs/Day Years [...] AM EDT documented as of this encounter Plan of Treatment Upcoming Encounters Date Type Department Care Team (Late st Contact Info) Description 11/03/2024 8:10 AM EDT Office Visit [facility] [address] [place] [address] Gabriel Blackman DO [address] [place], [facility] 10/13/2025 11:00 AM EDT Office Visit [facility] [address] [facility] [address] [place] [address] Gabriel Blackman, DO [address] [place] [address] [place] [address] documented as of this encounter Procedures Procedure Name Priority Date/Time Associated Diagnosis Comments PAP SMEAR Routine 10/03/2023 12:00 AM EDT documented in this encounter Results * Pap Smear (10/03/2023 12:00 AM EDT) Swab Cervical swab / Unknown us [facility] Nurse LAB CYTOLOGY ORDERABLES Final Result EXTERNAL LAB documented in this encounter Visit Diagnoses Not on filedocumented in this encounter Care Teams Resource Center Teacher Relationship Specialty Start Date End Date Ramin Hale MD PCP - General Family Medicine 09/25/22 documented as of this encounter
--- OUTSIDE RECORDS SUMMARY | 2024-10-06 15:20 | XMS_ITS | Encounter Summary ---
Author Organization [facility] Address [address] [place] [address] Care Team Providers Care Temp Recruiter Name Role Phone Ramin Hale MD Primary Care Provider [phone] Encounter Details Date Type Department Care Team (Late st Contact Info) Description 04/09/2024 Clinisync Result Encounter [facility] External Department Unsolicited Gabriel Blackman, DO [address] [place], [place] [phone] Social History Tobacco Use Types Packs/Day Years [...] EDT Office Visit [facility] [address] [place] [address] Gabriel Blackman, DO [address] [place], [place] [phone] 10/13/2025 11:00 AM EDT Office Visit [facility] [address] [place] [address] Gabriel Blackman, DO [address] [place] [address] documented as of this encounter Procedures Procedure Name Priority Date/Time Associated Diagnosis Comments MM TOMOSYNTHESIS SCREENING BI 04/09/2024 11:49 AM EST documented in this encounter Results * MM TOMOSYNTHESIS SCREENING BI (04/09/2024 11:49 AM EST) Anatomical Region Laterality Modality Other 04/09/2024 11:4 9 AM EST Narrative 04/09/2024 11:50 AM EST The [address] [address] Mammography Report Signed Patient: MELISA SHERMAN MR#: [id number] : 1975 Acct:[id number] Age/Sex: 48 / F ADM Date: 04/09/24 Loc: MAMMO Attending Dr: Gabriel Blackman D.O. Ordering Physician: Gabriel Blackman D.O. Results: Date of Service: 04/09/24 Follow Up: Procedure(s): MM tomosynthesis screening BI Accession Number(s): [id number] cc: Gabriel Blackman D.O.; Ramin Hale M.D. Patient Name: MELISA SHERMAN MR#: [id number] : 1975 Exam Date: 04/09/2024 Ordering Doctor: [...] lung cancer at age 69. LOCATION: The [facility] BREAST COMPOSITION: There are scattered areas of [...] Signed By: 04/09/24 1150 DD/ 1149 TD/TT: Sign Fabricator: Procedure Note Radiology, Radiologist, MD - 04/09/2024 [place] [address] Mammography Report Signed Patient: MELISA SHERMANMR#: [id number] : 1975Acct:[id number] Age/Sex: 48 / FADM Date: 04/09/24 Loc: MAMMO Attending Dr: Gabriel Blackman D.O. Ordering Physician: Gabriel Blackman D.O.Results: Date of Service: 04/09/24Follow Up: Procedure(s): MM tomosynthesis screening BI Accession Number(s): [id number] cc: Gabriel Blackman D.O.; Ramin Hale M.D. Patient Name: MELISA SHERMAN MR#: [id number] : 1975 Exam Date: 04/09/2024 Ordering Doctor: [...] lung cancer at age 69. LOCATION: The [facility] BREAST COMPOSITION: There are scattered areas of [...] M.D. Signed By:04/09/24 1150 DD/ 1149 TD/TT: Sign Fabricator: us Gabriel Hiral DO [facility] Final Result documented in this encounter Visit Diagnoses Not on filedocumented in this encounter Care Teams Temp Recruiter Relationship Specialty Start Date End Date Ramin Hale MD PCP - General Family Medicine 09/25/22 documented as of this encounter
--- OUTSIDE RECORDS SUMMARY | 2024-10-06 15:20 | XMS_ITS | Encounter Summary ---
Author Organization [facility] Address [address] [place] [address] Care Team Providers Care Sorter Pricer Name Role Phone Ramin Hale MD Primary Care Provider [phone] Encounter Details Date Type Department Care Team (Late Contact Info) Description 10/06/2024 Bamboo flowsheet [facility] OB [address] [place] [phone] Gabriel Blackman [facility] [place], [place] [phone] Social History Tobacco Use Types Packs/Day Years [...] Visit [facility] [address] [place] [phone] Gabriel Blackman [facility] [place], [place] [phone] 10/13/2025 11:00 AM EDT Office Visit [facility] [address] [place] [address] Gabriel Blackman, [address] [place] [address] [place] [address] documented as of this encounter Visit Diagnoses Not on filedocumented in this encounter Care Teams Sorter Pricer Relationship Specialty Start Date End Date Ramin Hale MD PCP - General Family Medicine 09/25/22 documented as of this encounter
--- OUTSIDE RECORDS SUMMARY | 2024-10-06 18:06 | XMS_ITS | CCD ---
Author Organization [facility] Care Team Providers Care [employer] Machine Tender Name Role Phone HIRAL ., DR PACHECO Consulting Unavailable HOY ., DR ZAMARRIPA Primary Care Unavailable HIRAL ., DR PACHECO Admitting Unavailable HIRAL ., DR PACHECO Attending Unavailable LEONIE SMITH Consulting Unavailable DESIREE II, ELENO Consulting Unavailable HIRAL ., DR PACHECO Attending Unavailable HOY ., DR ZAMARRIPA Primary Care Unavailable HIRAL ., DR PACHECO Admitting Unavailable HARRIMAN, DR ALEX Patel Consulting Unavailable HOY ., DR ZAMARRIPA Primary Care Unavailable HIRAL ., DR PACHECO Admitting Unavailable HIRAL ., DR PACHECO Attending Unavailable HIRAL ., DR PACHECO Consulting Unavailable HIRAL ., DR PACHECO Consulting Unavailable HOY ., DR ZAMARRIPA Primary Care Unavailable HIRAL ., DR PACHECO Admitting Unavailable HIRAL ., DR PACHECO Attending Unavailable HOY ., DR ZAMARRIPA Attending Unavailable HOY ., DR ZAMARRIPA Consulting Unavailable HOY ., DR ZAMARRIPA Primary Care Unavailable HOY ., DR ZAMARRIPA Admitting Unavailable HIRAL ., DR PACHECO Attending Unavailable HOY ., DR ZAMARRIPA Primary Care Unavailable HIRAL ., DR PACHECO Consulting Unavailable HIRAL ., DR PACHECO Admitting Unavailable GRACE TIDWELL Consulting Unavailable ERIBERTO VERNON Consulting Unavailable HIRAL ., DR PACHECO Consulting Unavailable HOY ., DR ZAMARRIPA Primary Care Unavailable HIRAL ., DR PACHECO Admitting Unavailable HIRAL ., DR PACHECO Attending Unavailable HIRAL ., DR PACHECO Consulting Unavailable HOY ., DR ZAMARRIPA Primary Care Unavailable HIRAL ., DR PACHECO Admitting Unavailable HIRAL ., DR PACHECO Attending Unavailable RULA MEADE Consulting Unavailable JUNIOR BLACKMAN Attending Unavailable Marilou Hale MD Primary Care Provider [phone] Allergies Allergy Classification Reported Allergen(s) Allergy Type Date of Onset Reaction(s) Facility (1 source) Adhesive agent Drug allergy (disorder) [facility] Medications Current Medications Medication Drug Class(es) Dates Sig (Normalized) Sig (Original) cholecalciferol 0.025 mg oral capsule (3 sources) Vitamin D take 1 capsule by mouth in the morning cholecalciferol (Vitamin D-3) 25 MCG (1000 UT) capsule Take 1,000 Units by mouth in the morning. Active diclofenac sodium 75 mg delayed release oral tablet (3 sources) Nonsteroidal Anti-inflammatory Drug take 1 tablet by mouth in the morning diclofenac (Voltaren) 75 MG EC tablet Take 75 mg by mouth in the morning and 75 mg before bedtime. Do not crush, chew, or split.. Active estradiol 0.5 mg oral tablet (2 sources) Estrogen Start: 10-06-2024 End: 11-05-2024 take 1 tablet by mouth once daily estradiol (Estrace) 0.5 MG tablet Indications: Muscle pain , Brain fog , Anxiety, generalized (CMS/HCC) , Bloating symptom , Hormone imbalance Take 1 tablet (0.5 mg) by mouth Daily Take 1 tablet by mouth for 30 days 30 tablet 1 10/06/2024 11/05/2024 Active ferrous sulfate 325 mg oral tablet (3 sources) take 1 tablet by mouth at mealtime ferrous sulfate 325 (65 Fe) MG tablet Take 325 mg by mouth in the morning. Take with meals. Active magnesium oxide 400 mg oral tablet (3 sources) magnesium oxide (Mag-Ox) 400 mg tablet Take 250 mg by mouth in the morning. Active omeprazole 40 mg delayed release oral capsule (3 sources) Proton Pump Inhibitor take 1 capsule by mouth before mealtime omeprazole (PriLOSEC) [address] capsule Take 40 mg by mouth in the morning. Take before meals. Do not crush or chew. . Active phentermine hydrochloride 37.5 mg oral tablet (3 sources) Sympathomimetic Amine Anorectic Start: 06-21-2023 take 1 tablet by mouth before mealtime phentermine (Adipex-P) 37.5 MG tablet Take 37.5 mg by mouth in the morning. Take before meals. 06/21/2023 Active sertraline 50 mg oral tablet (3 sources) Serotonin Reuptake Inhibitor take 1 tablet by mouth once daily sertraline (Zoloft) 50 MG tablet Take 50 mg by mouth Daily Active simvastatin 10 mg oral tablet (3 sources) HMG-CoA Reductase Inhibitor take 2 tablets by mouth once daily simvastatin (Zocor) 10 MG tablet Take 20 mg by mouth 1 (one) time each day at the same time Active Problems Active Problems Problem Classification Problem Date Documented Date Episodic/Chronic Anxiety disorders (2 sources) Generalized anxiety disorder; Translations: [Generalized anxiety disorder] 10-06-2024 Chronic Disorders of lipid metabolism (1 source) Pure hypercholesterolemia, unspecified; Translations: [PURE HYPERCHOLESTEROLEMIA UNSPEC] Onset: 02-25-20 Chronic Menstrual disorders (12 sources) Excessive and frequent menstruation with regular cycle; Translations: [Dysmenorrhea, unspecified] Onset: 08-05-19 Chronic Nutritional deficiencies (1 source) Vitamin D deficiency, unspecified; Translations: [VITAMIN D DEFICIENCY UNSPECIFIED] Onset: 02-25-20 Chronic Other aftercare (1 source) Other termite helper (current) drug therapy; Translations: [OTH AVIONICS REPAIR TECHNICIAN CURRENT DRUG THERAPY] Onset: 08-11-19 Episodic Other connective tissue disease (2 sources) Muscle pain; Translations: [Myalgia, unspecified site] 10-06-2024 Episodic Other endocrine disorders (2 sources) Disorder of endocrine system; Translations: [Endocrine disorder, unspecified] 10-06-2024 Episodic Other female genital disorders (1 source) Unspecified dyspareunia; Translations: [UNSPECIFIED DYSPAREUNIA] Onset: 08-11-19 Chronic Other female genital disorders (1 source) Hypertrophy of uterus; Translations: [HYPERTROPHY OF UTERUS] Onset: 08-11-19 Episodic Other gastrointestinal disorders (2 sources) Abdominal bloating; Translations: [Abdominal distension (gaseous)] 10-06-2024 Episodic Other nervous system disorders (2 sources) Impaired cognition; Translations: [Other symptoms and signs involving cognitive functions and awareness] 10-06-2024 Episodic Other nutritional; endocrine; and metabolic disorders (1 source) Obesity, unspecified; Translations: [OBESITY UNSPECIFIED] Onset: 08-11-19 Chronic Other nutritional; endocrine; and metabolic disorders (1 source) Body mass index (BMI) 35.0-35.9, adult; Translations: [BODY MASS INDEX BMI 35.0-35.9 ADULT] Onset: 08-11-19 Chronic Other nutritional; endocrine; and metabolic disorders (3 sources) Obesity; Translations: [Obesity, unspecified] Onset: 09-22-1909-21-2022 Chronic Other screening for suspected conditions (not mental disorders or infectious disease) (7 sources) Encounter for screening mammogram for malignant neoplasm of breast; Translations: [Encounter for screening for malignant neoplasm of cervix] Onset: 04-03-20 Episodic Substance-related disorders (1 source) Nicotine dependence, other tobacco product, uncomplicated; Translations: [NICOTINE DEPEND OTH TOB PROD UNCOMP] Onset: 06-16-19 Chronic Past or Other Problems Problem Classification Problem Date Documented Date Episodic/Chronic Abdominal pain (8 sources) Pelvic and perineal pain; Translations: [Pain in pelvis] Onset: 05-04-2022 Episodic Allergic reactions (3 sources) Contact dermatitis caused by chemical; Translations: [Unspecified contact dermatitis due to other chemical products] Onset: 09-21-2022 09-21-2022 Episodic Contraceptive and procreative management (1 source) Tubal [...] Translations: [OTHER FATIGUE] Onset: 02-24-2022 Episodic Other female genital disorders (3 sources) Vaginal lump; Translations: [Unspecified condition associated with female genital organs and menstrual cycle] Onset: 09-21-2022 09-21-2022 Episodic Residual codes; unclassified (1 source) Family history of malignant neoplasm of breast; Translations: [FAMILY HX MALIG NEOPLASM OF BREAST] Onset: 05-06-2022 Episodic Residual codes; unclassified (1 source) Family history of malignant neoplasm of trachea, bronchus and lung; Translations: [FAM HX MALIG NEOPLSM TRACH BRON LNG] Onset: 05-06-2022 Episodic Results Test Name Value Interpretation Reference Range Facility [facility] 08-05-2022 Urea nitrogen [Mass/Vol] 7.0 mg/dL Normal 7.0-18.0 [facility] Comment on above: Performed By: #### P TT, PT #### [facility] [address] [place] [address] Dr. Abdoulaye Kincaid CBC AUTO DIFFon 08-05-2022 BASO # 0.0 103/ul Normal 0.0-0.1 [facility] Comment on above: Performed By: #### C BC #### [facility] [address] [place] [address] Dr. Abdoulaye Kincaid Basophils/100 WBC (Bld) 0.1 % Critically low 0.2-2.0 [facility] Comment on above: Performed By: #### C BC #### [facility] [address] [place] [address] Dr. Abdoulaye Kincaid EO # 0.0 103/ul Normal 0.0-0.7 [facility] Comment on above: Performed By: #### C BC #### [facility] [address] [place] [address] Dr. Abdoulaye Kincaid Eosinophils/100 WBC (Bld) 0.0 % Critically low 0.9-7.0 [facility] Comment on above: Performed By: #### C BC #### [facility] [address] [place] [address] Dr. Abdoulaye Kincaid Erythrocyte distribution width (RBC) [Ratio] 13.8 % Normal 11.0-15.0 [facility] Comment on above: Performed By: #### C BC #### [facility] [address] [place] [address] Dr. Abdoulaye Kincaid Hematocrit (Bld) [Volume fraction] 35.4 % Critically low 36.0-48.0 [facility] Comment on above: Performed By: #### C BC #### [facility] [address] [place] [address] Dr. Abdoulaye Kincaid Hemoglobin (Bld) [Mass/Vol] 11.8 g/dL Critically low 12.0-16.0 [facility] Comment on above: Performed By: #### C BC #### [facility] [address] [place] [address] Dr. Abdoulaye Kincaid IG # 0.05 10e3/ul Critically high 0.00-0.03 [facility] Comment on above: Performed By: #### C BC #### [facility] [address] [place] [address] Dr. Abdoulaye Kincaid IG % 0.4 % Normal 0.0-0.5 [facility] Comment on above: Performed By: #### C BC #### [facility] [address] [place] [address] Dr. Abdoulaye Kincaid LYMPH # 2.1 103/ul Normal 1.2-3.8 [facility] Comment on above: Performed By: #### C BC #### [facility] [address] [place] [address] Dr. Abdoulaye Kincaid Lymphocytes/100 WBC (Bld) 15.1 % Critically low 20.5-60.0 [facility] Comment on above: Performed By: #### C BC #### [facility] [address] [place] [address] Dr. Abdoulaye Kincaid MANUAL DIFF REQ NO Normal [facility] Comment on above: Performed By: #### C BC #### [facility] [address] [place] [address] Dr. Abdoulaye Kincaid MCH (RBC) [Entitic mass] 29.1 pg Normal 26.7-34.0 [facility] Comment on above: Performed By: #### C BC #### [facility] [address] [place] [address] Dr. Abdoulaye Kincaid MCHC (RBC) [Mass/Vol] 33.3 g/dL Normal 29.9-35.2 [facility] Comment on above: Performed By: #### C BC #### [facility] [address] [place] [address] Dr. Abdoulaye Kincaid MCV (RBC) [Entitic vol] 87.2 fL Normal 81.0-99.0 [facility] Comment on above: Performed By: #### C BC #### [facility] [address] [place] [address] Dr. Abdoulaye Kincaid MONO # 0.8 103/ul Normal 0.3-0.8 [facility] Comment on above: Performed By: #### C BC #### [facility] [address] [place] [address] Dr. Abdoulaye Kincaid Monocytes/100 WBC (Bld) 6.2 % Normal 1.7-12.0 [facility] Comment on above: Performed By: #### C BC #### [facility] [address] [place] [address] Dr. Abdoulaye Kincaid NEUT # 10.7 103/ul Critically high 1.4-6.5 [facility] Comment on above: Performed By: #### C BC #### [facility] [address] [place] [address] Dr. Abdoulaye Kincaid Neutrophils/100 WBC (Bld) 78.2 % Critically high 43.0-75.0 [facility] Comment on above: Performed By: #### C BC #### [facility] [address] [place] [address] Dr. Abdoulaye Kincaid Platelet mean volume (Bld) [Entitic vol] 9.4 fL Critically low 9.5-13.5 [facility] Comment on above: Performed By: #### C BC #### [facility] [address] [place] [address] Dr. Abdoulaye Kincaid PLT 361 103/ul Normal 150-450 [facility] Comment on above: Performed By: #### C BC #### [facility] [address] [place] [address] Dr. Abdoulaye Kincaid RBC 4.06 106/ul Critically low 4.20-5.40 [facility] Comment on above: Performed By: #### C BC #### [facility] [address] [place] [address] Dr. Abdoulaye Kincaid WBC 13.6 103/ul Critically high 4.0-11.0 [facility] Comment on above: Performed By: #### C BC #### [facility] [address] [place] [address] Dr. Abdoulaye Kincaid CREATININEon 08-05-2022 Creatinine [Mass/Vol] 0.73 mg/dL Normal 0.55-1.02 [facility] Comment on above: Performed By: #### P TT, PT #### [facility] [address] [place] [address] Dr. Abdoulaye Kincaid EGFR-AF ISRAELI >60 Normal >=60 [facility] Comment on above: Performed By: #### P TT, PT #### [facility] [address] [place] [address] Dr. Abdoulaye Kincaid EGFR-NON AF ISRAELI >60 Normal >=60 [facility] Comment on above: Performed By: #### P TT, PT #### [facility] [address] [place] [address] Dr. Abdoulaye Kincaid PREG QUANT HCGon 08-04-2022 HCG QUANT 0 mIU/mL Normal [facility] Comment on above: Performed By: #### P TT, PT #### [facility] [address] [place] [address] Dr. Abdoulaye Kincaid HCG RANGE SEE BELOW Normal [facility] Comment on above: Result Comment: 5-50 0.2-1 WEEK 50-500 1-2 WEEKS 100-5,000 2-3 WEEKS 500-10,000 3-4 WEEKS 1,000-50,000 4-5 WEEKS 10,000-100,000 5-6 WEEKS 15,000-200,000 6-8 WEEKS 10,000-100,000 2-3 MONTHS Performed By: #### P TT, PT #### [facility] [address] [place] [address] Dr. Abdoulaye Kincaid CBC AUTO DIFFon 08-01-2022 BASO # 0.1 103/ul Normal 0.0-0.1 [facility] Comment on above: Performed By: #### C BC #### [facility] [address] [place] [address] Dr. Abdoulaye Kincaid Basophils/100 WBC (Bld) 0.6 % Normal 0.2-2.0 [facility] Comment on above: Performed By: #### C BC #### [facility] [address] [place] [address] Dr. Abdoulaye Kincaid EO # 0.3 103/ul Normal 0.0-0.7 [facility] Comment on above: Performed By: #### C BC #### [facility] [address] [place] [address] Dr. Abdoulaye Kincaid Eosinophils/100 WBC (Bld) 2.5 % Normal 0.9-7.0 [facility] Comment on above: Performed By: #### C BC #### [facility] [address] [place] [address] Dr. Abdoulaye Kincaid Erythrocyte distribution width (RBC) [Ratio] 13.9 % Normal 11.0-15.0 [facility] Comment on above: Performed By: #### C BC #### [facility] [address] [place] [address] Dr. Abdoulaye Kincaid Hematocrit (Bld) [Volume fraction] 39.5 % Normal 36.0-48.0 [facility] Comment on above: Performed By: #### C BC #### [facility] [address] [place] [address] Dr. Abdoulaye Kincaid Hemoglobin (Bld) [Mass/Vol] 13.4 g/dL Normal 12.0-16.0 [facility] Comment on above: Performed By: #### C BC #### [facility] [address] [place] [address] Dr. Abdoulaye Kincaid IG # 0.04 10e3/ul Critically high 0.00-0.03 [facility] Comment on above: Performed By: #### C BC #### [facility] [address] [place] [address] Dr. Abdoulaye Kincaid IG % 0.4 % Normal 0.0-0.5 [facility] Comment on above: Performed By: #### C BC #### [facility] [address] [place] [address] Dr. Abdoulaye Kincaid LYMPH # 2.3 103/ul Normal 1.2-3.8 [facility] Comment on above: Performed By: #### C BC #### [facility] [address] [place] [address] Dr. Abdoulaye Kincaid Lymphocytes/100 WBC (Bld) 22.8 % Normal 20.5-60.0 [facility] Comment on above: Performed By: #### C BC #### [facility] [address] [place] [address] Dr. Abdoulaye Kincaid MANUAL DIFF REQ NO Normal [facility] Comment on above: Performed By: #### C BC #### [facility] [address] [place] [address] Dr. Abdoulaye Kincaid MCH (RBC) [Entitic mass] 29.3 pg Normal 26.7-34.0 [facility] Comment on above: Performed By: #### C BC #### [facility] [address] [place] [address] Dr. Abdoulaye Kincaid MCHC (RBC) [Mass/Vol] 33.9 g/dL Normal 29.9-35.2 [facility] Comment on above: Performed By: #### C BC #### [facility] [address] [place] [address] Dr. Abdoulaye Kincaid MCV (RBC) [Entitic vol] 86.4 fL Normal 81.0-99.0 [facility] Comment on above: Performed By: #### C BC #### [facility] [address] [place] [address] Dr. Abdoulaye Kincaid MONO # 0.4 103/ul Normal 0.3-0.8 [facility] Comment on above: Performed By: #### C BC #### [facility] [address] [place] [address] Dr. Abdoulaye Kincaid Monocytes/100 WBC (Bld) 4.4 % Normal 1.7-12.0 [facility] Comment on above: Performed By: #### C BC #### [facility] [address] [place] [address] Dr. Abdoulaye Kincaid NEUT # 7.0 103/ul Critically high 1.4-6.5 [facility] Comment on above: Performed By: #### C BC #### [facility] [address] [place] [address] Dr. Abdoulaye Kincaid Neutrophils/100 WBC (Bld) 69.3 % Normal 43.0-75.0 [facility] Comment on above: Performed By: #### C BC #### [facility] [address] [address] [address] Abdoulaye Kincaid Platelet mean volume (Bld) [Entitic vol] 9.1 fL Critically low 9.5-13.5 [facility] Comment on above: Performed By: #### C BC #### [facility] [address] [place] [address] Dr. Abdoulaye Kincaid PLT 352 103/ul Normal 150-450 [facility] Comment on above: Performed By: #### C BC #### [facility] [address] [place] [address] Dr. Abdoulaye Kincaid RBC 4.57 106/ul Normal 4.20-5.40 [facility] Comment on above: Performed By: #### C BC #### [facility] [address] [place] [address] Dr. Abdoulaye Kincaid WBC 10.1 103/ul Normal 4.0-11.0 [facility] Comment on above: Performed By: #### C BC #### [facility] [address] [place] [address] Dr. Abdoulaye Kincaid LIVER PROFILEon 08-01-2022 Albumin [Mass/Vol] 4.0 g/dL Normal 3.4-5.0 [facility] Comment on above: Performed By: #### L GEM BMP #### [facility] [address] [place] [address] Dr. Abdoulaye Kincaid Albumin/Globulin [Mass ratio] 1.2 {ratio} Normal [facility] Comment on above: Performed By: #### L GEM BMP #### [facility] [address] [place] [address] Dr. Abdoulaye Kincaid ALP [Catalytic activity/Vol] 89 U/L Normal 46-116 [facility] Comment on above: Performed By: #### L GEM BMP #### [facility] [address] [place] [address] Dr. Abdoulaye Kincaid ALT [Catalytic activity/Vol] 29 U/L Normal 14-59 [facility] Comment on above: Performed By: #### L IVER, BMP #### [facility] [address] [place] [address] Dr. Abdoulaye Kincaid AST [Catalytic activity/Vol] 20 U/L Normal 15-37 [facility] Comment on above: Performed By: #### L IVER, BMP #### [facility] [address] [place] [address] Dr. Abdoulaye Kincaid BILI, CONJUGATED 0.1 mg/dL Normal 0.0-0.2 [facility] Comment on above: Performed By: #### L IVER, BMP #### [facility] [address] [place] [address] Dr. Abdoulaye Kincaid Bilirubin [Mass/Vol] 0.5 mg/dL Normal 0.2-1.0 [facility] Comment on above: Performed By: #### L IVER, BMP #### [facility] [address] [place] [address] Dr. Abdoulaye Knicaid Globulin (S) [Mass/Vol] 3.4 g/dL Normal [facility] Comment on above: Performed By: #### L IVER, BMP #### [facility] [address] [place] [address] Dr. Abdoulaye Kincaid Protein [Mass/Vol] 7.4 g/dL Normal 6.4-8.2 [facility] Comment on above: Performed By: #### L IVER, BMP #### [facility] [address] [place] [address] Dr. Abdoulaye Kincaid PROF CHEM 8 (BAS METB)on Anion gap [Moles/Vol] 14.8 mmol/L Normal [facility] Comment on above: Performed By: #### L IVER, BMP #### [facility] [address] [place] [address] Dr. Abdoulaye Kincaid Calcium [Mass/Vol] 9.1 mg/dL Normal 8.5-10.1 [facility] Comment on above: Performed By: #### L IVER, BMP #### [facility] [address] [place] [address] Dr. Abdoulaye Kincaid Chloride [Moles/Vol] 107 mmol/L Normal 98-107 [facility] Comment on above: Performed By: #### L IVBREN, BMP #### [facility] [address] [place] [address] Dr. Abdoulaye Kincaid CO2 [Moles/Vol] 27.3 mmol/L Normal 21.0-32.0 [facility] Comment on above: Performed By: #### L IVBREN, BMP #### [facility] [address] [place] [address] Dr. Abdoulaye Kincaid Creatinine [Mass/Vol] 0.90 mg/dL Normal 0.55-1.02 [facility] Comment on above: Performed By: #### L IVBREN, BMP #### [facility] [address] [place] [address] Dr. Abdoulaye Kincaid EGFR-AF ISRAELI >60 Normal >=60 [facility] Comment on above: Performed By: #### L IVBREN, BMP #### [facility] [address] [place] [address] Dr. Abdoulaye Kincaid EGFR-NON AF ISRAELI >60 Normal >=60 [facility] Comment on above: Performed By: #### L IVBREN, BMP #### [facility] [address] [place] [address] Dr. Abdoulaye Kincaid Glucose [Mass/Vol] 109 mg/dL Critically high 74-106 [facility] Comment on above: Performed By: #### L IVBREN, BMP #### [facility] [address] [place] [address] Dr. Abdoulaye Kincaid Potassium [Moles/Vol] 4.1 mmol/L Normal 3.5-5.1 [facility] Comment on above: Performed By: #### L IVBREN, BMP #### [facility] [address] [place] [address] Dr. Abdoulaye Kincaid Sodium [Moles/Vol] 145 mmol/L Normal 136-145 [facility] Comment on above: Performed By: #### L IVER, BMP #### [facility] [address] [place] [address] Dr. Abdoulaye Kincaid Urea nitrogen [Mass/Vol] 14.0 mg/dL Normal 7.0-18.0 [facility] Comment on above: Performed By: #### L GEM, BMP #### [facility] [address] [place] [address] Dr. Abdoulaye Kincaid Urea nitrogen/Creatinine [Mass ratio] 15.6 mg/mg Normal [facility] Comment on above: Performed By: #### L GEM, BMP #### [facility] [address] [place] [address] Dr. Abdoulaye Kincaid PROTIMEon 08-01-2022 INR Coag (PPP) [Relative time] 0.95 {INR} Normal [facility] Comment on above: Performed By: #### P TT, PT #### [facility] [address] [place] [address] Dr. Abdoulaye Kincaid INR GUIDELINES SEE BELOW Normal [facility] Comment on above: Result Comment: NIMA RED INR: 2.0 - 3.0 CONDITIONS NOT LISTED BELOW 2.5 - 3.5 FOR PROSTHETIC HEART VALVE REPLACEMENT 2.5 - 3.5 RECURRENT THROMBOSIS Performed By: #### P TT, PT #### [facility] [address] [place] [address] Dr. Abdoulaye Kincaid PT Coag (PPP) [Time] 10.1 s Normal 9.0-11.6 [facility] Comment on above: Performed By: #### P TT, PT #### [facility] [address] [place] [address] Dr. Abdoulaye Kincaid PTTon 08-01-2022 aPTT Coag (Bld) [Time] 27.4 s Normal 22.3-36.2 [facility] Comment on above: Performed By: #### P TT, PT #### [facility] [address] [place] [address] Dr. Abdoulaye Kincaid TYPE AND SCREENon 08-01-2022 TYPE AND SCREEN Negative Normal [facility] Comment on above: Performed By: #### P TT, PT #### [facility] [address] [place] [address] Dr. Abdoulaye Kincaid CBC AUTO DIFFon 06-23-2022 BASO # 0.1 103/ul Normal 0.0-0.1 [facility] Comment on above: Performed By: #### A 1C #### [facility] [address] [place] [address] Dr. Abdoulaye Kincaid Basophils/100 WBC (Bld) 0.4 % Normal 0.2-2.0 [facility] Comment on above: Performed By: #### A 1C #### [facility] [address] [place] [address] Dr. Abdoulaye Kincaid EO # 0.2 103/ul Normal 0.0-0.7 [facility] Comment on above: Performed By: #### A 1C #### [facility] [address] [place] [address] Dr. Abdoulaye Kincaid Eosinophils/100 WBC (Bld) 1.7 % Normal 0.9-7.0 [facility] Comment on above: Performed By: #### A 1C #### [facility] [address] [place] [address] Dr. Abdoulaye Kincaid Erythrocyte distribution width (RBC) [Ratio] 14.4 % Normal 11.0-15.0 [facility] Comment on above: Performed By: #### A 1C #### [facility] [address] [place] [address] Dr. Abdoulaye Kincaid Hematocrit (Bld) [Volume fraction] 38.5 % Normal 36.0-48.0 [facility] Comment on above: Performed By: #### A 1C #### [facility] [address] [place] [address] Dr. Abdoulaye Kincaid Hemoglobin (Bld) [Mass/Vol] 12.9 g/dL Normal 12.0-16.0 [facility] Comment on above: Performed By: #### A 1C #### [facility] [address] [place] [address] Dr. Abdoulaye Kincaid IG # 0.04 10e3/ul Critically high 0.00-0.03 [facility] Comment on above: Performed By: #### A 1C #### [facility] [address] [place] [address] Dr. Abdoulaye Kincaid IG % 0.3 % Normal 0.0-0.5 [facility] Comment on above: Performed By: #### A 1C #### [facility] [address] [place] [address] Dr. Abdoulaye Kincaid LYMPH # 2.5 103/ul Normal 1.2-3.8 [facility] Comment on above: Performed By: #### A 1C #### [facility] [address] [place] [address] Dr. Abdoulaye Kincaid Lymphocytes/100 WBC (Bld) 20.6 % Normal 20.5-60.0 [facility] Comment on above: Performed By: #### A 1C #### [facility] [address] [place] [address] Dr. Abdoulaye Kincaid MANUAL DIFF REQ NO Normal [facility] Comment on above: Performed By: #### A 1C #### [facility] [address] [place] [address] Dr. Abdoulaye Kincaid MCH (RBC) [Entitic mass] 29.0 pg Normal 26.7-34.0 [facility] Comment on above: Performed By: #### A 1C #### [facility] [address] [place] [address] Dr. Abdoulaye Kincaid MCHC (RBC) [Mass/Vol] 33.5 g/dL Normal 29.9-35.2 [facility] Comment on above: Performed By: #### A 1C #### [facility] [address] [place] [address] Dr. Abdoulaye Kincaid MCV (RBC) [Entitic vol] 86.5 fL Normal 81.0-99.0 [facility] Comment on above: Performed By: #### A 1C #### [facility] [address] [place] [address] Dr. Abdoulaye Kincaid MONO # 0.7 103/ul Normal 0.3-0.8 [facility] Comment on above: Performed By: #### A 1C #### [facility] [address] [place] [address] Dr. Abdoulaye Kincaid Monocytes/100 WBC (Bld) 5.5 % Normal 1.7-12.0 [facility] Comment on above: Performed By: #### A 1C #### [facility] [address] [address] [address] Abdoulaye Kincaid NEUT # 8.6 103/ul Critically high 1.4-6.5 [facility] Comment on above: Performed By: #### A 1C #### [facility] [address] [address] [address] Abdoulaye Kincaid Neutrophils/100 WBC (Bld) 71.5 % Normal 43.0-75.0 [facility] Comment on above: Performed By: #### A 1C #### [facility] [address] [address] [address] Abdoulaye Kincaid Platelet mean volume (Bld) [Entitic vol] 9.3 fL Critically low 9.5-13.5 [facility] Comment on above: Performed By: #### A 1C #### [facility] [address] [address] [address] Abdoulaye Kincaid PLT 372 103/ul Normal 150-450 [facility] Comment on above: Performed By: #### A 1C #### [facility] [address] [address] [address] Abdoulaye Kincaid RBC 4.45 106/ul Normal 4.20-5.40 [facility] Comment on above: Performed By: #### A 1C #### [facility] [address] [address] [address] Abdoulaye Kincaid WBC 12.0 103/ul Critically high 4.0-11.0 [facility] Comment on above: Performed By: #### A 1C #### [facility] [address] [place] [address] Dr. Abdoulaye Kincaid PREG QUANT HCGon 06-23-2022 HCG QUANT 1 mIU/mL Normal [facility] Comment on above: Performed By: #### P REGQNT #### [facility] [address] [place] [address] Dr. Abdoulaye Kincaid HCG RANGE SEE BELOW Normal [facility] Comment on above: Result Comment: 5-50 0.2-1 WEEK 50-500 1-2 WEEKS 100-5,000 2-3 WEEKS 500-10,000 3-4 WEEKS 1,000-50,000 4-5 WEEKS 10,000-100,000 5-6 WEEKS 15,000-200,000 6-8 WEEKS 10,000-100,000 2-3 MONTHS Performed By: #### P REGQNT #### [facility] [address] [address] [address] Abdoulaye Kincaid XR CHEST 2 Von [...] RULA MEADE Date: 2022-06-14 12:14 Normal [facility] CBC AUTO DIFFon 05-04-2022 BASO # 0.1 103/ul Normal 0.0-0.1 [facility] Comment on above: Performed By: #### P TT, PT #### [facility] [address] [address] [address] Abdoulaye Kincaid Basophils/100 WBC (Bld) 0.5 % Normal 0.2-2.0 [facility] Comment on above: Performed By: #### P TT, PT #### [facility] [address] [address] [address] Abdoulaye Kincaid EO # 0.2 103/ul Normal 0.0-0.7 [facility] Comment on above: Performed By: #### P TT, PT #### [facility] [address] [address] [address] Abdoulaye Kincaid Eosinophils/100 WBC (Bld) 1.8 % Normal 0.9-7.0 [facility] Comment on above: Performed By: #### P TT, PT #### [facility] [address] [address] [address] Abdoulaye Kincaid Erythrocyte distribution width (RBC) [Ratio] 14.4 % Normal 11.0-15.0 [facility] Comment on above: Performed By: #### P TT, PT #### [facility] [address] [place] [address] Dr. Abdoulaye Kincaid Hematocrit (Bld) [Volume fraction] 40.7 % Normal 36.0-48.0 [facility] Comment on above: Performed By: #### P TT, PT #### [facility] [address] [place] [address] Dr. Abdoulaye Kincaid Hemoglobin (Bld) [Mass/Vol] 13.4 g/dL Normal 12.0-16.0 [facility] Comment on above: Performed By: #### P TT, PT #### [facility] [address] [place] [address] Dr. Abdoulaye Kincaid IG # 0.06 10e3/ul Critically high 0.00-0.03 [facility] Comment on above: Performed By: #### P TT, PT #### [facility] [address] [place] [address] Dr. Abdoulaye Kincaid IG % 0.5 % Normal 0.0-0.5 [facility] Comment on above: Performed By: #### P TT, PT #### [facility] [address] [place] [address] Dr. Abdoulaye Kincaid LYMPH # 2.3 103/ul Normal 1.2-3.8 [facility] Comment on above: Performed By: #### P TT, PT #### [facility] [address] [place] [address] Dr. Abdoulaye Kincaid Lymphocytes/100 WBC (Bld) 20.7 % Normal 20.5-60.0 [facility] Comment on above: Performed By: #### P TT, PT #### [facility] [address] [place] [address] Dr. Abdoulaye Kincaid MANUAL DIFF REQ NO Normal [facility] Comment on above: Performed By: #### P TT, PT #### [facility] [address] [place] [address] Dr. Abdoulaye Kincaid MCH (RBC) [Entitic mass] 28.3 pg Normal 26.7-34.0 [facility] Comment on above: Performed By: #### P TT, PT #### [facility] [address] [place] [address] Dr. Abdoulaye Kincaid MCHC (RBC) [Mass/Vol] 32.9 g/dL Normal 29.9-35.2 [facility] Comment on above: Performed By: #### P TT, PT #### [facility] [address] [place] [address] Dr. Abdoulaye Kincaid MCV (RBC) [Entitic vol] 86.0 fL Normal 81.0-99.0 [facility] Comment on above: Performed By: #### P TT, PT #### [facility] [address] [place] [address] Dr. Abdoulaye Kincaid MONO # 0.5 103/ul Normal 0.3-0.8 [facility] Comment on above: Performed By: #### P TT, PT #### [facility] [address] [place] [address] Dr. Abdoulaye Kincaid Monocytes/100 WBC (Bld) 4.8 % Normal 1.7-12.0 [facility] Comment on above: Performed By: #### P TT, PT #### [facility] [address] [place] [address] Dr. Abdoulaye Kincaid NEUT # 8.0 103/ul Critically high 1.4-6.5 [facility] Comment on above: Performed By: #### P TT, PT #### [facility] [address] [place] [address] Dr. Abdoulaye Kincaid Neutrophils/100 WBC (Bld) 71.7 % Normal 43.0-75.0 [facility] Comment on above: Performed By: #### P TT, PT #### [facility] [address] [place] [address] Dr. Abdoulaye Kincaid Platelet mean volume (Bld) [Entitic vol] 9.2 fL Critically low 9.5-13.5 [facility] Comment on above: Performed By: #### P TT, PT #### [facility] [address] [place] [address] Dr. Abdoulaye Kincaid PLT 392 103/ul Normal 150-450 [facility] Comment on above: Performed By: #### P TT, PT #### [facility] [address] [address] [address] Abdoulaye Kincaid RBC 4.73 106/ul Normal 4.20-5.40 [facility] Comment on above: Performed By: #### P TT, PT #### [facility] [address] [address] [address] Abdoulaye Kincaid WBC 11.2 103/ul Critically high 4.0-11.0 [facility] Comment on above: Performed By: #### P TT, PT #### [facility] [address] [place] [address] Dr. Abdoulaye Kincaid FREE T4on 05-04-2022 Free T4 [Mass/Vol] 1.17 ng/dL Normal 0.76-1.46 [facility] Comment on above: Performed By: #### C BC #### [facility] [address] [place] [address] Dr. Abdoulaye Kincaid MG MAMM SCREEN 3D BRANDY CADon 05-04-2022 MG MAMM SCREEN 3D BRANDY CAD Patient: PALMA GIL Exam Date: 05/04/2022 : 1975 Gender:F Ordering : DR JUNIOR BLACKMAN . Admission #: [id number] Family : Order #: [id number] CLICK HERE TO VIEW EXAM RADIOLOGY REPORT [...] lung cancer at age 69. LOCATION: [facility] BREAST COMPOSITION: Scattered areas fibroglandular density. FINDINGS: [...] Fragoso MD on 05/04/2022 at 11:52 Normal [facility] PREG QUANT HCGon 05-04-2022 HCG QUANT <1 Normal [facility] Comment on above: Performed By: #### P TT, PT #### [facility] [address] [place] [address] Dr. Abdoulaye Kincaid HCG RANGE SEE BELOW Normal [facility] Comment on above: Result Comment: 5-50 0.2-1 WEEK 50-500 1-2 WEEKS 100-5,000 2-3 WEEKS 500-10,000 3-4 WEEKS 1,000-50,000 4-5 WEEKS 10,000-100,000 5-6 WEEKS 15,000-200,000 6-8 WEEKS 10,000-100,000 2-3 MONTHS Performed By: #### P TT, PT #### [facility] [address] [place] [address] Dr. Abdoulaye Kincaid PROTIMEon 05-04-2022 INR Coag (PPP) [Relative time] 1.01 {INR} Normal [facility] Comment on above: Performed By: #### A 1C #### [facility] [address] [place] [address] Dr. Abdoulaye Kincaid INR GUIDELINES SEE BELOW Normal [facility] Comment on above: Result Comment: NIMA RED INR: 2.0 - 3.0 CONDITIONS NOT LISTED BELOW 2.5 - 3.5 FOR PROSTHETIC HEART VALVE REPLACEMENT 2.5 - 3.5 RECURRENT THROMBOSIS Performed By: #### A 1C #### [facility] [address] [place] [address] Dr. Abdoulaye Kincaid PT Coag (PPP) [Time] 10.9 s Normal 9.0-11.6 [facility] Comment on above: Performed By: #### A 1C #### [facility] [address] [place] [address] Dr. Abdoulaye Kincaid PTTon 05-04-2022 aPTT Coag (Bld) [Time] 30.2 s Normal 22.3-36.2 [facility] Comment on above: Performed By: #### A 1C #### [facility] [address] [place] [address] Dr. Abdoulaye Kincaid TSHon 05-04-2022 TSH 1.886 uIU/mL Normal 0.358-3.740 [facility] Comment on above: Performed By: #### T SH, PREGQNT #### [facility] [address] [place] [address] Dr. Abdoulaye Kincaid US PELVIS AND TRANSVAGon [...] 30 to 65on 04-11-2022 . . Normal [facility] Comment on above: Result Comment: Perf ormed at: WB Performed By: #### C BC #### [facility] [address] [place] [address] Dr. Abdoulaye Kincaid Age Gdln ACOG Testing 30-65 Normal [facility] Comment on above: Performed By: #### C BC #### [facility] [address] [address] [address] Abdoulaye Kincaid DIAGNOSIS: Comment Normal [facility] Comment on above: Result Comment: NEGA TIVE FOR INTRAEPITHELIAL LESION OR MALIGNANCY. Performed at: WB Performed By: #### C BC #### [facility] [address] [address] [address] Abdoulaye Kincaid HPV Aptima Negative Normal Negative [facility] Comment on above: Result Comment: This nucleic acid amplification test detects fourteen high-risk HPV types (16,18,31,33,35,39,45,51,52,56,58,59,66,68) without differentiation. Performed at: =G Performed By: #### C BC #### [facility] [address] [place] [address] Dr. Abdoulaye Kincaid HPV Genotype Reflex Comment Normal [facility] Comment on above: Result Comment: Crit eria not met, HPV Genotype not performed. Performed at: WB Performed By: #### C BC #### [facility] [address] [place] [address] Dr. Abdoulaye Kincaid Methodology: Comment Normal [facility] Comment on above: Result Comment: This liquid based ThinPrep(R) pap test was screened with the use of an image guided system. Performed at: WB Performed By: #### C BC #### [facility] [address] [place] [address] Dr. Abdoulaye Kincaid Note: Comment Normal [facility] [...] WB Performed By: #### C BC #### [facility] [address] [address] [address] Abdoulaye Kincaid Performed by: Comment Normal [facility] Comment on above: Result Comment: Ashtyn Crenshaw, Gear Coding Machine Operator Performed at: WB Performed By: #### C BC #### [facility] [address] [place] [address] Dr. Abdoulaye Kincaid Specimen adequacy: Comment Normal [facility] Comment on above: Result Comment: Sati sfactory for evaluation. Endocervical and/or squamous metaplastic cells (endocervical component) are present. Performed at: WB Performed By: #### C BC #### [facility] [address] [place] [address] Dr. Abdoulaye Kincaid CBC AUTO DIFFon 02-21-2022 BASO # 0.1 103/ul Normal 0.0-0.1 [facility] Comment on above: Performed By: #### C BC #### [facility] [address] [place] [address] Dr. Abdoulaye Kincaid Basophils/100 WBC (Bld) 0.6 % Normal 0.2-2.0 [facility] Comment on above: Performed By: #### C BC #### [facility] [address] [place] [address] Dr. Abdoulaye Kincaid EO # 0.2 103/ul Normal 0.0-0.7 [facility] Comment on above: Performed By: #### C BC #### [facility] [address] [place] [address] Dr. Abdoulaye Kincaid Eosinophils/100 WBC (Bld) 2.3 % Normal 0.9-7.0 [facility] Comment on above: Performed By: #### C BC #### [facility] [address] [place] [address] Dr. Abdoulaye Kincaid Erythrocyte distribution width (RBC) [Ratio] 14.1 % Normal 11.0-15.0 [facility] Comment on above: Performed By: #### C BC #### [facility] [address] [place] [address] Dr. Abdoulaye Kincaid Hematocrit (Bld) [Volume fraction] 41.6 % Normal 36.0-48.0 [facility] Comment on above: Performed By: #### C BC #### [facility] [address] [place] [address] Dr. Abdoulaye Kincaid Hemoglobin (Bld) [Mass/Vol] 13.6 g/dL Normal 12.0-16.0 [facility] Comment on above: Performed By: #### C BC #### [facility] [address] [place] [address] Dr. Abdoulaye Kincaid IG # 0.02 10e3/ul Normal 0.00-0.03 [facility] Comment on above: Performed By: #### C BC #### [facility] [address] [place] [address] Dr. Abdoulaye Kincaid IG % 0.2 % Normal 0.0-0.5 [facility] Comment on above: Performed By: #### C BC #### [facility] [address] [place] [address] Dr. Abdoulaye Kincaid LYMPH # 2.3 103/ul Normal 1.2-3.8 [facility] Comment on above: Performed By: #### C BC #### [facility] [address] [place] [address] Dr. Abdoulaye Kincaid Lymphocytes/100 WBC (Bld) 26.9 % Normal 20.5-60.0 [facility] Comment on above: Performed By: #### C BC #### [facility] [address] [place] [address] Dr. Abdoulaye Kincaid MANUAL DIFF REQ NO Normal [facility] Comment on above: Performed By: #### C BC #### [facility] [address] [place] [address] Dr. Abdoulaye Kincaid MCH (RBC) [Entitic mass] 28.6 pg Normal 26.7-34.0 [facility] Comment on above: Performed By: #### C BC #### [facility] [address] [place] [address] Dr. Abdoulaye Kincaid MCHC (RBC) [Mass/Vol] 32.7 g/dL Normal 29.9-35.2 [facility] Comment on above: Performed By: #### C BC #### [facility] [address] [place] [address] Dr. Abdoulaye Kincaid MCV (RBC) [Entitic vol] 87.4 fL Normal 81.0-99.0 [facility] Comment on above: Performed By: #### C BC #### [facility] [address] [place] [address] Dr. Abdoulaye Kincaid MONO # 0.5 103/ul Normal 0.3-0.8 [facility] Comment on above: Performed By: #### C BC #### [facility] [address] [place] [address] Dr. Abdoulaye Kincaid Monocytes/100 WBC (Bld) 5.2 % Normal 1.7-12.0 [facility] Comment on above: Performed By: #### C BC #### [facility] [address] [place] [address] Dr. Abdoulaye Kincaid NEUT # 5.6 103/ul Normal 1.4-6.5 [facility] Comment on above: Performed By: #### C BC #### [facility] [address] [place] [address] Dr. Abdoulaye Kincaid Neutrophils/100 WBC (Bld) 64.8 % Normal 43.0-75.0 [facility] Comment on above: Performed By: #### C BC #### [facility] [address] [place] [address] Dr. Abdoulaye Kincaid Platelet mean volume (Bld) [Entitic vol] 9.3 fL Critically low 9.5-13.5 [facility] Comment on above: Performed By: #### C BC #### [facility] [address] [place] [address] Dr. Abdoulaye Kincaid PLT 371 103/ul Normal 150-450 [facility] Comment on above: Performed By: #### C BC #### [facility] [address] [place] [address] Dr. Abdoulaye Kincaid RBC 4.76 106/ul Normal 4.20-5.40 [facility] Comment on above: Performed By: #### C BC #### [facility] [address] [place] [address] Dr. Abdoulaye Kincaid WBC 8.6 103/ul Normal 4.0-11.0 [facility] Comment on above: Performed By: #### C BC #### [facility] [address] [place] [address] Dr. Abdoulaye Kincaid FREE T3on 02-21-2022 FREE T3 2.87 pg/mlL Normal 2.18-3.98 [facility] Comment on above: Performed By: #### A 1C #### [facility] [address] [address] [address] Abdoulaye Kincaid GLYCOHEMOGLOBIN A1Con 2021 ADA RECOMMENDATION SEE BELOW Normal [facility] Comment on above: Result Comment: ADA RECOMMENDED LIMIT 4.0 - 6.0 ADA THERAPEUTIC TARGET < 7.0 ACTION SUGGESTED > 7.0 Performed By: #### A 1C #### [facility] [address] [address] [address] Abdoulaye Kincaid Glucose [Mass/Vol] 111 mg/dL Normal [facility] Comment on above: Performed By: #### A 1C #### [facility] [address] [place] [address] Dr. Abdoulaye Kincaid HbA1c (Bld) [Mass fraction] 5.5 % Normal 4.5-6.2 [facility] Comment on above: Performed By: #### A 1C #### [facility] [address] [address] [address] Abdoulaye Kincaid LIPID PROFILEon 02-21-2022 CHOL-HDL RATIO NORM SEE BELOW Normal [facility] Comment on above: Result Comment: 3.3 - 4.4 LOW RISK 4.4 - 7.1 AVERAGE RISK 7.1 - 11.0 MODERATE RISK >11.0 HIGH RISK Performed By: #### A 1C #### [facility] [address] [address] [address] Abdoulaye Kincaid Cholesterol [Mass/Vol] 226 mg/dL Critically high <=200 [facility] Comment on above: Performed By: #### A 1C #### [facility] [address] [place] [address] Dr. Abdoulaye Kincaid Cholesterol in HDL [Mass/Vol] 53 mg/dL Normal 40-60 [facility] Comment on above: Performed By: #### A 1C #### [facility] [address] [address] [address] Abdoulaye Kincaid Cholesterol in LDL [Mass/Vol] 141.6 mg/dL Normal [facility] Comment on above: Performed By: #### A 1C #### [facility] [address] [address] [address] Abdoulaye Kincaid Cholesterol.total/Cho lesterol in HDL [Mass ratio] 4.3 {ratio} Normal [facility] Comment on above: Performed By: #### A 1C #### [facility] [address] [address] [address] Abdoulaye Kincaid HDL NORMAL > or = 60 mg/dl - LO W CARDIOVASCULAR RISK <40 mg/dl - HIGH CARDIOVASCULAR RISK Normal [facility] Comment on above: Performed By: #### A 1C #### [facility] [address] [address] [address] Abdoulaye Kincaid LDL CALC NORMAL SEE BELOW Normal [facility] Comment on above: Result Comment: <100 mg/dl OPTIMAL 100 - 129 mg/dl NEAR OR ABOVE OPTIMAL 130 - 159 mg/dl BORDERLINE HIGH 160 - 189 mg/dl HIGH >190 mg/dl VERY HIGH Performed By: #### A 1C #### [facility] [address] [address] [address] Abdoulaye Kincaid Triglyceride [Mass/Vol] 157 mg/dL Critically high <=150 [facility] Comment on above: Performed By: #### A 1C #### [facility] [address] [address] [address] Abdoulaye Kincaid VLDL CALC 31.4 mg/dL Normal [facility] Comment on above: Performed By: #### A 1C #### [facility] [address] [address] [address] Abdoulaye Kincaid PROF 14(COMP METB)on 022 Albumin [Mass/Vol] 4.1 g/dL Normal 3.4-5.0 [facility] Comment on above: Performed By: #### A 1C #### [facility] [address] [address] [address] Abdoulaye Kincaid Albumin/Globulin [Mass ratio] 1.1 {ratio} Normal [facility] Comment on above: Performed By: #### A 1C #### [facility] [address] [place] [address] Dr. Abdoulaye Kincaid ALP [Catalytic activity/Vol] 83 U/L Normal 46-116 [facility] Comment on above: Performed By: #### A 1C #### [facility] [address] [place] [address] Dr. Abdoulaye Kincaid ALT [Catalytic activity/Vol] 30 U/L Normal 14-59 [facility] Comment on above: Performed By: #### A 1C #### [facility] [address] [place] [address] Dr. Abdoulaye Kincaid Anion gap [Moles/Vol] 11.0 mmol/L Normal [facility] Comment on above: Performed By: #### A 1C #### [facility] [address] [place] [address] Dr. Abdoulaye Kincaid AST [Catalytic activity/Vol] 16 U/L Normal 15-37 [facility] Comment on above: Performed By: #### A 1C #### [facility] [address] [place] [address] Dr. Abdoulaye Kincaid Bilirubin [Mass/Vol] 0.6 mg/dL Normal 0.2-1.0 [facility] Comment on above: Performed By: #### A 1C #### [facility] [address] [place] [address] Dr. Abdoulaye Kincaid Calcium [Mass/Vol] 8.9 mg/dL Normal 8.5-10.1 [facility] Comment on above: Performed By: #### A 1C #### [facility] [address] [place] [address] Dr. Abdoulaye Kincaid Chloride [Moles/Vol] 106 mmol/L Normal 98-107 [facility] Comment on above: Performed By: #### A 1C #### [facility] [address] [place] [address] Dr. Abdoulaye Kincaid CO2 [Moles/Vol] 28.0 mmol/L Normal 21.0-32.0 [facility] Comment on above: Performed By: #### A 1C #### [facility] [address] [place] [address] Dr. Abdoulaye Kincaid Creatinine [Mass/Vol] 0.72 mg/dL Normal 0.55-1.02 [facility] Comment on above: Performed By: #### A 1C #### [facility] [address] [address] [address] Abdoulaye Kincaid EGFR-AF ISRAELI >60 Normal >=60 [facility] Comment on above: Performed By: #### A 1C #### [facility] [address] [address] [address] Abdoulaye Kincaid EGFR-NON AF ISRAELI >60 Normal >=60 [facility] Comment on above: Performed By: #### A 1C #### [facility] [address] [address] [address] Abdoulaye Kincaid Globulin (S) [Mass/Vol] 3.7 g/dL Normal [facility] Comment on above: Performed By: #### A 1C #### [facility] [address] [address] [address] Abdoulaye Kincaid Glucose [Mass/Vol] 97 mg/dL Normal 74-106 [facility] Comment on above: Performed By: #### A 1C #### [facility] [address] [address] [address] Abdoulaye Kincaid Potassium [Moles/Vol] 4.0 mmol/L Normal 3.5-5.1 [facility] Comment on above: Performed By: #### A 1C #### [facility] [address] [address] [address] Abdoulaye Kincaid Protein [Mass/Vol] 7.8 g/dL Normal 6.4-8.2 [facility] Comment on above: Performed By: #### A 1C #### [facility] [address] [address] [address] Abdoulaye Kincaid Sodium [Moles/Vol] 141 mmol/L Normal 136-145 [facility] Comment on above: Performed By: #### A 1C #### [facility] [address] [address] [address] Abdoulaye Kincaid Urea nitrogen [Mass/Vol] 10.0 mg/dL Normal 7.0-18.0 [facility] Comment on above: Performed By: #### A 1C #### [facility] [address] [place] [address] Dr. Abdoulaye Kincaid Urea nitrogen/Creatinine [Mass ratio] 13.9 mg/mg Normal [facility] Comment on above: Performed By: #### A 1C #### [facility] [address] [place] [address] Dr. Abdoulaye Kincaid T4on 02-21-2022 T4 [Mass/Vol] 10.90 ug/dL Normal 4.80-13.90 [facility] Comment on above: Performed By: #### A 1C #### [facility] [address] [place] [address] Dr. Abdoulaye Kincaid TSHon 02-21-2022 TSH 0.662 uIU/mL Normal 0.358-3.740 [facility] Comment on above: Performed By: #### A 1C #### [facility] [address] [place] [address] Dr. Abdoulaye Kincaid VITAMIN D 25 OHon 02-21-2022 VIT D 25-OH 19.8 ng/mL Normal [facility] Comment on above: Performed By: #### A 1C #### [facility] [address] [place] [address] Dr. Abdoulaye Kincaid VIT D RANGES SEE BELOW Normal [facility] Comment on above: Result Comment: <20 ng/mL Vit D deficient 20 - <30 ng/mL Vit D insufficient 30 - 100 ng/mL Vit D sufficient >100 ng/mL Potential Toxicity Performed By: #### A 1C #### [facility] [address] [place] [address] Dr. Abdoulaye Kincaid Vital Signs Date Time Vital Sign Value Performing Clinician Checo mir 10-06-2024 10:32-0400 Body mass index (BMI) [Ratio] 32.74 kg/m2 Abzena Work Phone: [facility] 10-06-2024 10:32-0400 Body weight 89.25 kg Abzena Work Phone: [facility] 10-06-2024 10:32-0400 Diastolic blood pressure 84 mm[Hg] Junior Hiral DO Work Phone: [facility] 10-06-2024 10:32-0400 Systolic blood pressure 118 mm[Hg] Junior Hiral DO Work Phone: [facility] Encounters Encounter Date Encounter Type Care Provider Facility Start: 10-06-2024 End: 10-06-2024 Bamboo flowsheet Junior Hiral DO Work Phone: [facility] Start: 10-06-2024 End: 10-06-2024 Bamboo flowsheet Junior Hiral DO Work Phone: [facility] Start: 10-06-2024 End: 10-06-2024 Patient encounter procedure Junior Hiral DO Work Phone: [facility] Start: 10-06-2024 End: 10-06-2024 Periodic preventive med est patient 40-64yrs Junior Hiral DO Work Phone: [facility] Comment on above: Well woman exam with routine gynecological exam; Encounter for screening mammogram for malignant neoplasm of breast; Muscle pain; Brain fog; Anxiety, generalized (CMS/HCC); Bloating symptom; Hormone imbalance Start: 10-03-2023 End: 10-03-2023 ambulatory JUNIOR BLACKMAN Not Available Start: 08-04-2022 Encounter for preprocedural laboratory examination DR JUNIOR BLACKMAN . [facility] Start: 08-04-2022 End: 08-05-[address] JNUIOR BLACKMAN . Facility:[facility] Start: 08-01-2022 End: 08-02-[address] JUNIOR BLACKMAN . Facility:[facility] Start: 08-01-2022 End: 08-02-2022 Encounter for preprocedural laboratory examination DR JUNIOR BLACKMAN . Facility:[facility] Start: 06-23-2022 End: 06-23-[address] JUNIOR BLACKMAN . Facility:[facility] Start: 06-16-2022 Encounter for preprocedural cardiovascular examination DR JUNIOR BLACKMAN . [facility] Start: 06-14-2022 End: 06-15-[address] JUNIOR BLACKMAN . Facility:[facility] Start: 06-14-2022 End: 06-15-2022 Encounter for preprocedural cardiovascular examination DR JUNIOR BLACKMAN . Facility:[facility] Start: 05-04-2022 End: 05-05-[address] ALEX FRAGOSO Facility:[facility] Start: 04-03-2022 End: 04-03-[address] JUNIOR BLACKMAN . Facility:[facility] Start: 02-24-2022 Encounter for genera l adult medical examination without abnormal findings DR MARILOU HALE . [facility] Start: 02-21-2022 End: 02-22-[address] MARILOU HALE . Facility:[facility] Start: 02-21-2022 End: 02-22-2022 Encounter for general adult medical examination without abnormal findings DR MARILOU HALE . Facility:[facility] Procedures Date Procedure Procedure Detail Performing Clinician Start: 04-09-2024 Mammography Junior jacobs DO Work Phone: Start: 10-03-2023 Microscopic observat ion [Identifier] in Cervix by Cyto stain Junior Blackman DO Work Phone: Plan of Treatment Date Care Activity Detail Author Start: 10-02-2026 Screening for malignant neoplasm of cervix [facility] Start: 10-13-2025 End: 10-13-2025 Patient encounter procedure 10/13/2025 11:00 AM EDT Office Visit [facility] [address] [place] [address] Junior Blackman, DO [address] [place] [address] [facility] Start: 04-09-2025 Screening for malignant neoplasm of breast Mammogram [facility] Start: 01-05-2025 Influenza vaccination Influenz a Vaccine (Season Ended) [facility] Start: 11-03-2024 End: 11-03-2024 Patient encounter procedure 11/03/2024 8:10 AM EDT Office Visit [facility] [address] [place] [id number] Junior Blackman, DO [address] [place] [address] [facility] Start: 10-06-2024 End: 12-06-2025 MG Breast - bilateral Screening Bilateral screening mammogram Imaging Routine Encounter for screening mammogram for malignant neoplasm of breast Expected: 10/06/2024 (Approximate), Expires: 12/06/2025 [facility] Work Phone: Comment on above: Expected: 10/06/2024 (Approximate), Expires: 12/06/2025 Start: 2006 Screening for malignant neoplasm of cervix HPV/Cotest [facility] Start: 1976 Screening for malignant neoplasm of colon [facility] THIN PREP TIS PAP AN D HR HPV DNA THIN PREP TIS PAP AND HR HPV DNA Pathology and Cytology Routine Well woman exam with routine gynecological exam Ordered: 10/06/2024 [facility] Comment on above: Ordered: 10/06/2024 Immunizations Immunization Date Immunization Notes Care Provider dale 02-27-2022 influenza virus vacc ine, unspecified formulation Junior Blackman DO Work Phone: [facility] Payers Date Payer Category Payer [facility] [id number] 1976 Unknown [id number] 1976 Unknown [id number] 1976 Unknown [id number] 1976 Unknown [id number] 1976 Unknown [id number] 1976 Unknown [id number] 1976 Unknown [id number] 1976 Unknown [id number] 1976 Unknown [id number] 1959 Unknown [id number] Social History Date Type Detail Facility Start: 09-25-2022 Tobacco smoking stat [facility] Ex-smoker [facility] History of tobacco use Current smoker [facility] History of tobacco use Cigarette Smoker [facility] Start: 09-25-2022 Tobacco use and exposure Smoke less tobacco non-user [facility] Start: 10-03-2023 End: 10-06-2024 Alcoholic beverage intake Lifetime non-drinker (finding) [facility] Start: 10-12-2022 End: 10-06-2024 [facility] of Social function [facility] Start: 09-25-2022 End: 10-06-2024 Tobacco use panel [facility] Start: 1975 Sex assigned at Female [facility] History of Present illness Narrative 10-06-2024 Amalia Polanco LPN - 10/06/2024 10:00 AM EDT Note Date & Type Note Facility 10-06-2024 History of Presen t illness Narrative Reason for Appointment: Patient ID: Palma Gil is a 48 y.o. female who [...] / INDUCED 12/2017 D&C LAPAROSCOPIC HYSTERECTOMY 08/04/2022 IA HYSTEROSCOPY BX ENDOMETRIUM&/POLYPC W/WO D&C 06/23/2022 diagnostic [...] nursing note reviewed. Exam conducted with a weigher bulker present. Vitals: Estimated body mass index is 32.74 kg/m as calculated from the following: Height as [...] being checked for ADHD and not sure if this is a factor to some of her symptoms. Pap was obtained without difficulty and patient given mammogram order to have scheduled/obtained. Discussed micronized progesterone and estrogen. Discussed starting 0.5mg estrogen for 1 month and schedule telehealth and see if improvement. If no improvement or helped slightly then would discussed micronized progesterone. Orders Placed This Encounter Procedures Bilateral screening mammogram Follow Up: Patient is to return in one year for annual unless needed otherwise. Documented by Amalia Polanco LPN on behalf of: Junior Blackman DO documented in this encounter [facility] Clinical Note 08-04-2022 Note Date & Type Note Facility 08-04-2022 Note OPERATIVE NOTE OPERATION DATE: 08/04/2022 PROCEDURE: Robotic assisted laparoscopic hysterectomy with cystoscopy. PREOPERATIVE DIAGNOSIS: Menorrhagia, dysmenorrhea, pelvis pain, dyspareunia. POSTOPERATIVE DIAGNOSIS: Menorrhagia, dysmenorrhea, pelvis pain, dyspareunia, slightly enlarged uterus. ANESTHESIA: General. SURGEON: Junior Blackman D.O. PARTS PICKER: ALYCIA Myrick URINE OUTPUT: Yellow and clear. [...] Anesthesia first. Patient tolerated procedure well [facility] Clinical Note 06-23-2022 Note Date & Type Note Facility 06-23-2022 Note OPERATIVE NOTE OPERATION DATE: 06/23/2022 PROCEDURE: Diagnostic laparoscopy, D AND C hysteroscopy. PREOPERATIVE DIAGNOSIS: Menorrhagia, pelvic pain, dysmenorrhea, dyspareunia. POSTOPERATIVE DIAGNOSIS: Menorrhagia, pelvic pain, dysmenorrhea, dyspareunia, including significant adhesions of the uterus to the anterior abdominal wall. ANESTHESIA: General. SURGEON: Junior Blackman D.O. PARTS PICKER: ALYCIA Myrick URINE OUTPUT: Yellow and clear. [...] the Recovery Room in stable condition. [facility] Evaluation note Note Date & Type Note Facility Evaluation note Diagnosis Well woman exam with routine gynecological exam Routine gynecological examination Encounter for screening mammogram for malignant neoplasm of breast Muscle pain Unspecified myalgia and myositis Brain fog Anxiety, generalized (CMS/HCC) Bloating symptom Flatulence, eructation, and gas pain Hormone imbalance documented in this encounter [facility] Summary Purpose Family History No Family History Records FoundNo Family History Records Found Advance Directives No Advanced Directives Records FoundNo Advanced Directives Records Found Additional Source Comments INFORMATION SOURCE (unrecogn ized section and content) DATE CREATED AUTHOR 10/13/2022 [facility] DATE CREATED AUTHOR AUTHOR'S ORGANIVONNE ATION 10/04/2023 [facility] Special[facility] [employer] Care Teams (unrecognized sec tion and content) [employer] Relationship Specialty Start Date End Date Marilou Hale MD PCP - General Family Medicine 09/25/22 [employer] Relationship Specialty Start Date End Date Marilou Hale MD PCP - General Family Medicine 09/25/22 Reason for Visit (unrecogniz ed section and content) Reason Comments Well Women Visit FOR RECORDS PERTAINING TO PATIENTS WHO ARE [...] BE BASED ON THE PRIMARY CLINICAL RECORDS. [facility] [employer] provides no warranty or guarantee of the accuracy or completeness of information in this document.
[2024-10-09 12:09] LABS: Age Gdln ACOG Testing Note (.); HPV Aptima Negative (Negative); IGP, Aptima HPV, rfx 16/18,45 Note (.)
== END 2024-10-06 15:15 | disposition home or self-care (01) ==
LOC: LAB 15:14
PROVIDERS: PCP Family Medicine; Visit Provider Obstetrics & Gynecology
DX: Z01.419 Encounter for gynecological examination (general) (routine) without abnormal findings (principal)
CPT/HCPCS: 87624; 88175